=== PATIENT | female | born 1935 | race Caucasian/White ===

== ENCOUNTER → 2016-11-13 | Outpatient (CLI) | payer MEDICARE ==
[2016-03-15 15:00] VITALS: BP 171/59
[~2016-11-13] MED LIST: ALEN70TA5 PO; AMIT25TA PO; AMLO5TAB2 PO; ASPI-39 PO; CARV12.52 PO; CITA20TA5 PO; FURO40TA4 PO; GABA-586 PO; GABA-587 PO; GLIM1TAB2 PO; GLIP10TA13 PO; INSU100V13 SQ; INSU100V8 SQ; LEVO500T38 PO; LISI-334 PO; LORA0.5T PO; METF500T4 PO; MULT-196 PO; OMEG500C PO; POTA10TA10 PO; PRAV40TA2 PO; RANI300C PO; TRIA15CR3 TP; VENL150C6 PO; macrobid 100mg PO
--- NOTE | 2016-11-13 14:14 | EKG ---
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
[2016-11-13 14:45] LABS: CREATININE 1.6 mg/dL (0.6-1.0); GFR 31.1
[2016-11-13 15:40] LABS: FREE T4 1.17 ng/dL (0.76-1.46)
[2016-11-14 16:19] LABS: VITAMIN D25(OH)TOTAL 39.4 ng/mL (30.0-100.0)
== END | disposition home or self-care (01) ==
LOC: LAB 13:41
PROVIDERS: ATTEND Psychiatry & Neurology Neurology
DX: I51.9 Heart disease, unspecified (principal); E11.42 Type 2 diabetes mellitus with diabetic polyneuropathy
CPT/HCPCS: 36415; 82306; 82565; 82607; 82947; 84439; 84443; 84520; 85651; 93005

== ENCOUNTER → 2017-03-14 | Outpatient (CLI) | payer MEDICARE ==
[2016-03-15 15:00] VITALS: BP 171/59
[~2017-03-14] MED LIST changes: -LEVO500T38 PO; +LEVO500T59 PO; -POTA10TA10 PO; +POTA10TA12 PO
--- NOTE | 2017-03-14 16:41 | RAD ---
APPROVED REPORT Patient Location: OUT-PATIENT Laterality:Bilateral Risk Factors CAD, Doppler Spectral Velocity Analysis Right Left mCCA 101/101 cm/smCCA 101/101 cm/s ECA 147/ cm/sECA 165/ cm/s pICA 111/26 cm/spICA 94/12 cm/s Vasile 108/22 cm/smICA 77/17 cm/s dICA 105/20 cm/sdICA 70/15 cm/s ICA/CCA 1.10ICA/CCA 0.90 Findings Link scale images of the bilateral common carotid, external carotid and internal carotid arteries rev eal mild atherosclerotic plaque in the left and mild to moderate atherosclerotic plaque at the level of the carotid bulb on the right. Based on spectral Doppler tracings and color Doppler there is no evidence of high-grade stenosis. [place] aterally there is less than 0-50% stenosis in the internal cardio artery. The bilateral external mcintosh tid arteries have mildly elevated velocities. The bilateral vertebral velocities are antegrade. Critical Notification Critical Value: No <Conclusion> No high-grade stenosis is identified in the bilateral carotid arterial systems.
== END | disposition home or self-care (01) ==
LOC: US 15:04
PROVIDERS: ATTEND Internal Medicine Cardiovascular Disease
DX: I25.10 Atherosclerotic heart disease of native coronary artery without angina pectoris (principal); I65.23 Occlusion and stenosis of bilateral carotid arteries
CPT/HCPCS: 93880

== ENCOUNTER 2017-04-22 17:37 | Emergency (ER) | payer MEDICARE ==
[~2017-04-22] VITALS: Ht 157.5 cm; Wt 61.2 kg
[2017-04-22 18:10] VITALS: BP 142/65
--- NOTE | 2017-04-22 18:11 | PHYS DOC ---
Past Medical History Past Medical History: Anxiety, Arrhythmia, Depression, Diabetes-Type II, GERD, High Cholesterol, Hypertension, [place], Renal Disease, UTI, Other Additional Past Medical Histor: Renal retention; [place], neuropathy; Past Surgical History: Hysterectomy, Other Additional Past Surgical Histo: arm surgery Alcohol Use: None Drug Use: None Adult General Chief Complaint Chief Complaint: MULTIPLE COMPLAINTS HPI HPI Patient is a 81 year old female who presents with generalized weakness, dysuria, nausea. She states she was seen yesterday was diagnosed with urinary tract infection and put on Macrobid. She states last night she took it with some crackers and then had nausea and vomited 3 times. She states she also shook all over for several hours. She states that is normal for her after she vomits to shake. She states today she's been feeling better but is somewhat weaker. She called her primary care physician who recommended her to come to the ER to have labs and a look at her kidney function. She states she had an elevated temperature at home. Review of Systems Review of Systems Constitutional: Denies fever or chills [] Eyes: Denies change in visual acuity, redness, or eye pain [] HENT: Denies nasal congestion or sore throat [] Respiratory: Denies cough or shortness of breath [] Cardiovascular: No additional information not addressed in HPI [] GI: Denies abdominal pain, nausea, vomiting, bloody stools or diarrhea [] : Positive for dysuria, Denies hematuria [] Musculoskeletal: Denies back pain or joint pain [] Integument: Denies rash or skin lesions [] Neurologic: Denies headache, focal weakness or sensory changes [] Endocrine: Denies polyuria or polydipsia [] Current Medications Current Medications Current Medications Medications (Trade) Dose Ordered Sig/Smita Start Time Stop Time Status Last Admin Dose Admin Ceftriaxone Sodium 50 ml @ 100 mls/hr 1X ONCE 04/22/17 19:30 04/22/17 19:59 DC 04/22/17 19:36 100 MLS/HR Ondansetron HCl (Zofran) 4 mg 1X ONCE 04/22/17 18:30 04/22/17 18:39 DC 04/22/17 18:43 4 MG Sodium Chloride 1,000 ml @ 1,000 mls/hr Q1H 04/22/17 18:28 04/22/17 19:27 DC 04/22/17 18:43 1,000 MLS/HR Allergies Allergies Allergies Coded Allergies Type Severity Reaction Last Updated Verified codeine Adverse Reaction Intermediate nausea 02/01/16 Yes Physical Exam Physical Exam Constitutional: Well developed, well nourished, no acute distress, non-toxic appearance. [] HENT: Normocephalic, atraumatic, bilateral external ears normal, oropharynx moist, no oral exudates, nose normal. [] Eyes: PERRLA, EOMI, conjunctiva normal, no discharge. [] Neck: Normal range of motion, no tenderness, supple, no stridor. [] Cardiovascular:Heart rate regular rhythm, no murmur [] Lungs & Thorax: Bilateral breath sounds clear to auscultation [] Abdomen: Bowel sounds normal, soft, no tenderness, no masses, no pulsatile masses. [] Skin: Warm, dry, no erythema, no rash. [] Back: No tenderness, no CVA tenderness. [] Extremities: No tenderness, no cyanosis, no clubbing, ROM intact, no edema. [] Neurologic: Alert and oriented X 3, normal motor function, normal sensory function, no focal deficits noted. [] Psychologic: Affect normal, judgement normal, mood normal. [] Current Patient Data Vital Signs Vital Signs Date Time Temp Pulse Resp B/P (MAP) Pulse Ox O2 Delivery O2 Flow Rate FiO2 04/22/17 18:10 99.8 85 16 142/65 (90) 98 Room Air 99.8 Lab Values Laboratory Tests Test 04/22/17 18:10 04/22/17 18:40 04/22/17 19:35 Urine Collection Type Unknown Urine Color Yellow Urine Clarity Cloudy Urine pH 5.5 Urine Specific [place] 1.010 Urine Protein Negative mg/dL (NEG-TRACE) Urine Glucose (UA) Negative mg/dL (NEG) Urine Ketones (Stick) Negative mg/dL (NEG) Urine Blood Small (NEG) Urine Nitrite Negative (NEG) Urine Bilirubin Negative (NEG) Urine Urobilinogen Dipstick 0.2 mg/dL (0.2 mg/dL) Urine Leukocyte Esterase Large (NEG) Urine RBC Occ /HPF (0-2) Urine WBC 20-40 /HPF (0-4) Urine Squamous Epithelial Cells Many /LPF Urine Bacteria Moderate /HPF (0-FEW) White Blood Count 15.9 x10^3/uL (4.0-11.0) H Red Blood Count 3.70 x10^6/uL (3.50-5.40) Hemoglobin 11.0 g/dL (12.0-15.5) L Hematocrit 32.6 % (36.0-47.0) L Mean Corpuscular Volume 88 fL (79-100) Mean Corpuscular Hemoglobin 30 pg (25-35) Mean Corpuscular Hemoglobin Concent 34 g/dL (31-37) Red Cell Distribution Width 13.6 % (11.5-14.5) Platelet Count 142 x10^3/uL (140-400) Neutrophils (%) (Auto) 87 % (31-73) H Lymphocytes (%) (Auto) 9 % (24-48) L Monocytes (%) (Auto) 4 % (0-9) Eosinophils (%) (Auto) 0 % (0-3) Basophils (%) (Auto) 0 % (0-3) Neutrophils # (Auto) 13.7 x10^3uL (1.8-7.7) H Lymphocytes # (Auto) 1.4 x10^3/uL (1.0-4.8) Monocytes # (Auto) 0.7 x10^3/uL (0.0-1.1) Eosinophils # (Auto) 0.0 x10^3/uL (0.0-0.7) Basophils # (Auto) 0.0 x10^3/uL (0.0-0.2) Segmented Neutrophils % 77 % (35-66) H Lymphocytes % 17 % (24-48) L Monocytes % 6 % (0-10) Platelet Estimate Adequate (ADEQUATE) Sodium Level 139 mmol/L (136-145) Potassium Level 3.7 mmol/L (3.5-5.1) Chloride Level 104 mmol/L (98-107) Carbon Dioxide Level 26 mmol/L (21-32) Anion Gap 9 (6-14) Blood Urea Nitrogen 31 mg/dL (7-20) H Creatinine 1.5 mg/dL (0.6-1.0) H Estimated GFR (Cockcroft-Gault) 33.5 Glucose Level 158 mg/dL (70-99) H Calcium Level 9.3 mg/dL (8.5-10.1) Total Bilirubin 0.6 mg/dL (0.2-1.0) Direct Bilirubin 0.1 mg/dL (0.0-0.2) Aspartate Amino Transferase (AST) 15 U/L (15-37) Alanine Aminotransferase (ALT) 16 U/L (14-59) Alkaline Phosphatase 46 U/L (46-116) Creatine Kinase 59 U/L (26-192) Creatine Kinase MB (Mass) 0.5 ng/mL (0.0-3.6) Creatine Kinase MB Relative Index % (0-4) Troponin I Quantitative < 0.017 ng/mL (0.000-0.055) Total Protein 6.1 g/dL (6.4-8.2) L Albumin 2.9 g/dL (3.4-5.0) L Lipase 114 U/L (73-393) Laboratory Tests 04/22/17 18:40 Laboratory Tests 04/22/17 19:35 EKG EKG EKG shows sinus rhythm with rate of [address] elevations or concerning T-wave inversions, normal axis, QTC 430 ms, as interpreted by me. Radiology/Procedures Radiology/Procedures [] Impressions: Urinary tract infection Dehydration Course & Med Decision Making Course & Med Decision Making Pertinent Labs and Imaging studies reviewed. (See chart for details) Labs do not show any acute abnormalities other than a UTI. Her creatinine is 1.5 and this is close to her baseline. She received 1 g of Rocephin and 1 L fluids and is requesting to be discharged home. Return precautions given. She is agreeable to the plan and being discharged in stable condition at this time. Dragon Disclaimer Dragon Disclaimer This electronic medical record was generated, in whole or in part, using a voice recognition dictation system. Departure Departure Impression: Primary Impression: UTI (urinary tract infection) Disposition: 01 HOME, SELF-CARE Condition: STABLE Referrals: JUAN BRITT Jr, MD (PCP) Patient Instructions: Urinary Tract Infection Additional Instructions: You were seen tonight for your bladder infection. You received IV fluids and antibiotics and you state you are feeling better. Continue taking your antibiotics that you were previously prescribed at the urgent care. Return ER for worsening weakness, uncontrolled nausea vomiting, abdominal pain, high fevers, continued shakes, or other concerns. You should follow-up with her primary care physician within the week. Problem Qualifiers Primary Impression: UTI (urinary tract infection) Urinary tract infection type: acute cystitis Hematuria presence: with hematuria Qualified Codes: N30.01 - Acute cystitis with hematuria ISAIAS RAPHAEL MD Apr 22, 2017 18:11
[2017-04-22] MEDS ORDERED: IV NORMAL SALINE 1000ML BAG 1,000 ML IV SCH (18:28)
[2017-04-22] MEDS ORDERED: ONDANSETRON PF 4 MG/2 ML VIAL. IV ONE (18:30)
[2017-04-22 18:39] LABS: BILIRUBIN,URINE NEGATIVE (NEG); GLUCOSE,URINE NEGATIVE (NEG); NITRITE,URINE NEGATIVE (NEG); PH,URINE 5.5; PROTEIN,URINE NEGATIVE (NEG-TRACE); UROBILINOGEN,URINE 0.2 mg/dL (0.2 mg/dL)
[2017-04-22 18:51] LABS: BASO % 0 % (0-3); EOS % 0 % (0-3); HEMATOCRIT 32.6 % (36.0-47.0); LYMPH # 1.4 x10^3/uL (1.0-4.8); LYMPH % 9 % (24-48); MEAN CORPUSCULAR HEMOGLOBIN 30 pg (25-35); MEAN CORPUSCULAR HGB CONC 34 g/dL (31-37); MEAN CORPUSCULAR VOLUME 88 fL (79-100); MONO % 4 % (0-9); NEUT % 87 % (31-73); PLATELET COUNT 142 x10^3/uL (140-400); RED CELL DISTRIBUTION WIDTH 13.6 % (11.5-14.5); WHITE BLOOD COUNT 15.9 x10^3/uL (4.0-11.0)
[2017-04-22 18:54] LABS: BACTERIA,URINE MODERATE /HPF (0-FEW); RBC,URINE OCC /HPF (0-2); SQUAMOUS EPITHELIAL CELL,UR MANY /LPF; WBC,URINE 20-40 /HPF (0-4)
[2017-04-22 19:19] LABS: PLT ESTIMATE ADEQUATE (ADEQUATE)
[2017-04-22 20:18] LABS: CKMB MASS 0.5 ng/mL (0.0-3.6); CREATINE KINASE 59 U/L (26-192)
[2017-04-22 20:31] LABS: CALCIUM 9.3 mg/dL (8.5-10.1); CREATININE 1.5 mg/dL (0.6-1.0); GFR 33.5; POTASSIUM 3.7 mmol/L (3.5-5.1)
[2017-04-22 20:39] LABS: ALBUMIN 2.9 g/dL (3.4-5.0); DIRECT BILIRUBIN 0.1 mg/dL (0.0-0.2); TOTAL BILIRUBIN 0.6 mg/dL (0.2-1.0); TOTAL PROTEIN 6.1 g/dL (6.4-8.2)
--- NOTE | 2017-04-23 06:12 | EKG ---
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
== END 2017-04-22 20:59 | disposition home or self-care (01) ==
LOC: ER 17:37
DX: N30.01 Acute cystitis with hematuria (principal); E11.22 Type 2 diabetes mellitus with diabetic chronic kidney disease; N18.9 Chronic kidney disease, unspecified; I12.9 Hypertensive chronic kidney disease with stage 1 through stage 4 chronic kidney disease, or unspecified chronic kidney disease; I25.2 Old myocardial infarction; E11.40 Type 2 diabetes mellitus with diabetic neuropathy, unspecified; E78.00 Pure hypercholesterolemia, unspecified; K21.9 Gastro-esophageal reflux disease without esophagitis; Z88.5 Allergy status to narcotic agent
CPT/HCPCS: 36415; 80048; 80076; 81001; 82553; 83690; 84484; 85007; 85025; 87040; 87086; 93005; 96361; 96365; 96375; 99285; J0690; J2405; J7030

== ENCOUNTER → 2017-06-20 | Outpatient (CLI) | payer MEDICARE ==
--- NOTE | 2017-06-20 16:14 | KCIC ---
DATE: 06/20/2017 EXAM: MAMMO JULIETTE SCREENING BILATERAL HISTORY: Routine screening COMPARISON: 05/15/2016 This study was interpreted with the benefit of Computerized Aided Detection (CAD). FINDINGS: Breast Density: SCATTERED The breast parenchyma shows scattered fibroglandular densities. Breast parenchyma level B. Small asymmetry identified in the right retroareolar region which appears new compared to prior exam. Nodular appearing bilateral breast parenchyma. IMPRESSION: New small asymmetry identified in the right retroareolar region. Recommend spot compression views of the right breast and ultrasound. BI-RADS CATEGORY: 0 INCOMPLETE: NEEDS ADDITIONAL IMAGING EVALUATION AND/OR PRIOR MAMMOGRAMS FOR COMPARISON. RECOMMENDED FOLLOW-UP: ADD ADDITIONAL IMAGING PQRS compliance statement: Patient information was entered into a reminder system with a target due date immediate recall for the next mammogram. Mammography is a sensitive method for finding small breast cancers, but it does not detect them all and is not a substitute for careful clinical examination. A negative mammogram does not negate a clinically suspicious finding and should not result in delay in biopsying a clinically suspicious abnormality. "Our facility is accredited by the [employer] Mammography Program."
== END | disposition home or self-care (01) ==
LOC: KCIC MAMMO 14:24
PROVIDERS: ATTEND Internal Medicine
DX: Z12.31 Encounter for screening mammogram for malignant neoplasm of breast (principal)
CPT/HCPCS: 77063; G0202; 77067

== ENCOUNTER → 2017-07-01 | Outpatient (CLI) | payer MEDICARE ==
--- NOTE | 2017-07-01 15:05 | KCIC ---
DATE: 07/01/2017 EXAM: DIGITAL DIAGNOSTIC RT HISTORY: Right breast density. COMPARISON: 06/20/2017. This study was interpreted with the benefit of Computerized Aided Detection (CAD). FINDINGS: Spot compression CC and MLO views of the right breast were obtained in the retroareolar location. There is a persistent density in the retroareolar location. Further evaluation of this area with ultrasound is recommended. No suspicious calcifications are seen. Impression: Persistent density right retroareolar location. Further evaluation with ultrasound is recommended. Right breast ultrasound: Sonographic interrogation of the retroareolar right breast was performed. Minimal ductal ectasia is seen. No discrete mass lesion is detected. Breast Density: SCATTERED The breast parenchyma shows scattered fibroglandular densities. Breast parenchyma level B. IMPRESSION: No significant abnormality is identified with additional view mammography or ultrasound. Retroareolar density most likely represents fibroglandular tissue. The patient may return to routine annual screening mammography. BI-RADS CATEGORY: 2 BENIGN FINDING(S) RECOMMENDED FOLLOW-UP: 12M 12 MONTH FOLLOW-UP PQRS compliance statement: Patient information was entered into a reminder system with a target due date 06/20/2018 for the next mammogram. Mammography is a sensitive method for finding small breast cancers, but it does not detect them all and is not a substitute for careful clinical examination. A negative mammogram does not negate a clinically suspicious finding and should not result in delay in biopsying a clinically suspicious abnormality. "Our facility is accredited by the [employer] Mammography Program."
== END | disposition home or self-care (01) ==
LOC: KCIC MAMMO 13:07
PROVIDERS: ATTEND Internal Medicine
DX: N63.10 Unspecified lump in the right breast, unspecified quadrant (principal)
CPT/HCPCS: 76641; G0206; 77065

== ENCOUNTER 2018-03-05 12:02 | Inpatient (IN) | payer MEDICARE ==
[~2018-03-05] VITALS: Ht 157.5 cm; Wt 63.5 kg
[~2018-03-05 12:02] MED LIST changes: -CITA20TA5 PO; +CITA20TA6 PO; +DULO20CA PO; -METF500T4 PO; +METF500T5 PO
[2018-03-05] MEDS ORDERED: IV NORMAL SALINE 1000ML BAG 1,000 ML IV SCH (12:43)
--- NOTE | 2018-03-05 13:17 | RAD ---
Portable chest, 03/05/2018: HISTORY: Fever, recent UTI Comparison is made to a study from 11/24/2017. The heart is at the upper limits of normal in size. There is calcific plaquing of the aorta. There appear to be mild parenchymal scars. No acute infiltrate is seen. There is no evidence of pleural fluid. 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 IMPRESSION: No acute cardiopulmonary abnormality is detected with no significant change since 11/24/2017. Electronically signed by: Lyle Rivera MD (03/05/2018 1:14 PM) [facility]
[2018-03-05 13:29] LABS: BASO # 0.2 x10^3/uL (0.0-0.2); BASO % 1 % (0-3); EOS % 0 % (0-3); HEMOGLOBIN 12.2 g/dL (12.0-15.5); LYMPH # 1.1 x10^3/uL (1.0-4.8); LYMPH % 5 % (24-48); MEAN CORPUSCULAR HEMOGLOBIN 30 pg (25-35); MEAN CORPUSCULAR HGB CONC 34 g/dL (31-37); MEAN CORPUSCULAR VOLUME 87 fL (79-100); MONO # 0.8 x10^3/uL (0.0-1.1); MONO % 4 % (0-9); NEUT # 17.8 x10^3uL (1.8-7.7); NEUT % 89 % (31-73); PLATELET COUNT 158 x10^3/uL (140-400); RED BLOOD COUNT 4.12 x10^6/uL (3.50-5.40); RED CELL DISTRIBUTION WIDTH 13.5 % (11.5-14.5); WHITE BLOOD COUNT 19.9 x10^3/uL (4.0-11.0)
[2018-03-05 13:43] LABS: CALCIUM 9.4 mg/dL (8.5-10.1); CREATININE 1.4 mg/dL (0.6-1.0); GFR 36.2; POTASSIUM 4.3 mmol/L (3.5-5.1)
[2018-03-05 13:49] LABS: ALBUMIN 3.5 g/dL (3.4-5.0); TOTAL PROTEIN 7.1 g/dL (6.4-8.2)
[2018-03-05] MEDS ORDERED: ACETAMINOPHEN 500 MG TABLET PO ONE (14:00)
--- NOTE | 2018-03-05 14:12 | PHYS DOC ---
Past Medical History Past Medical History: Anxiety, Arrhythmia, CAD, Depression, Diabetes-Type II, GERD, High Cholesterol, Hypertension, [place], Renal Disease, UTI, Other Additional Past Medical Histor: Renal retention; [place], neuropathy, kidney disease stage IV Past Surgical History: Hysterectomy, Other Additional Past Surgical Histo: arm surgery, CARDIAC STENTS Alcohol Use: None Drug Use: None Adult General Chief Complaint Chief Complaint: FEVER HPI HPI Patient is a 82 year old female with history of hypertension, dyslipidemia, anxiety, diabetes who presents with complaining of fever. Patient had urgent care visit 3 days ago with diagnosis of UTI and treated with penicillin but was not able to tolerate the medication and vomited all night and the medication changed to something different and had 2 doses of antibiotic. Patient had fever since yesterday and seen at the urgent care today and because of fever of 102 sent to ER for evaluation. Patient complaining from priors weakness and anorexia without focal neuro deficit, headache, neck pain, vomiting and diarrhea. Patient complaining of lower abdominal discomfort and nausea. Patient states she has had history of frequent UTI. Review of Systems Review of Systems Constitutional: Denies fever or chills [] Eyes: Denies change in visual acuity, redness, or eye pain [] HENT: Denies nasal congestion or sore throat [] Respiratory: Denies cough or shortness of breath [] Cardiovascular: No additional information not addressed in HPI [] GI: Reports abdominal pain, nausea, vomiting, denies bloody stools or diarrhea [ ] : Denies dysuria or hematuria [] Musculoskeletal: Denies back pain or joint pain [] Integument: Denies rash or skin lesions [] Neurologic: Denies headache, focal weakness or sensory changes [] Endocrine: Denies polyuria or polydipsia [] All other systems were reviewed and found to be within normal limits, except as documented in this note. Current Medications Current Medications Current Medications Medications (Trade) Dose Ordered Sig/Smita Start Time Stop Time Status Last Admin Dose Admin Acetaminophen (Tylenol) 1,000 mg 1X ONCE 03/05/18 14:00 03/05/18 14:01 DC 03/05/18 14:27 1,000 MG Ceftriaxone Sodium 50 ml @ 100 mls/hr 1X ONCE 03/05/18 14:00 03/05/18 14:29 DC 03/05/18 14:27 100 MLS/HR Sodium Chloride 1,000 ml @ 1,000 mls/hr Q1H 03/05/18 12:43 03/05/18 13:42 DC 03/05/18 13:26 1,000 MLS/HR Allergies Allergies Allergies Coded Allergies Type Severity Reaction Last Updated Verified Penicillins Allergy Intermediate GI 03/05/18 Yes codeine Adverse Reaction Intermediate nausea 02/01/16 Yes Physical Exam Physical Exam Constitutional: Well developed, well nourished, mild distress, non-toxic appearance, febrile. [] HENT: Normocephalic, atraumatic, , oropharynx dry, no oral exudates, nose normal. [] Eyes: PERRLA, EOMI, conjunctiva normal, no discharge. [] Neck: Normal range of motion, no tenderness, supple, no stridor. [] Cardiovascular:Heart rate regular rhythm, no murmur [] Lungs & Thorax: Bilateral breath sounds clear to auscultation [] Abdomen: Bowel sounds normal, soft, no tenderness, no masses, no pulsatile masses. [] Skin: Warm, dry, no erythema, no rash. [] Back: No tenderness, no CVA tenderness. [] Extremities: No tenderness, no cyanosis, no clubbing, ROM intact, no edema. [] Neurologic: Alert and oriented X 3, normal motor function, normal sensory function, no focal deficits noted. [] Psychologic: Affect normal, judgement normal, mood normal. [] Current Patient Data Vital Signs Vital Signs Date Time Temp Pulse Resp B/P (MAP) Pulse Ox O2 Delivery O2 Flow Rate FiO2 03/05/18 13:51 90 20 176/70 (105) 95 Room Air 03/05/18 12:20 101.6 101.6 Lab Values Laboratory Tests Test 03/05/18 13:20 White Blood Count 19.9 x10^3/uL (4.0-11.0) H Red Blood Count 4.12 x10^6/uL (3.50-5.40) Hemoglobin 12.2 g/dL (12.0-15.5) Hematocrit 36.0 % (36.0-47.0) Mean Corpuscular Volume 87 fL (79-100) Mean Corpuscular Hemoglobin 30 pg (25-35) Mean Corpuscular Hemoglobin Concent 34 g/dL (31-37) Red Cell Distribution Width 13.5 % (11.5-14.5) Platelet Count 158 x10^3/uL (140-400) Neutrophils (%) (Auto) 89 % (31-73) H Lymphocytes (%) (Auto) 5 % (24-48) L Monocytes (%) (Auto) 4 % (0-9) Eosinophils (%) (Auto) 0 % (0-3) Basophils (%) (Auto) 1 % (0-3) Neutrophils # (Auto) 17.8 x10^3uL (1.8-7.7) H Lymphocytes # (Auto) 1.1 x10^3/uL (1.0-4.8) Monocytes # (Auto) 0.8 x10^3/uL (0.0-1.1) Eosinophils # (Auto) 0.0 x10^3/uL (0.0-0.7) Basophils # (Auto) 0.2 x10^3/uL (0.0-0.2) Segmented Neutrophils % 80 % (35-66) H Band Neutrophils % 11 % (0-9) H Lymphocytes % 6 % (24-48) L Monocytes % 3 % (0-10) Platelet Estimate Adequate (ADEQUATE) Sodium Level 136 mmol/L (136-145) Potassium Level 4.3 mmol/L (3.5-5.1) Chloride Level 100 mmol/L (98-107) Carbon Dioxide Level 27 mmol/L (21-32) Anion Gap 9 (6-14) Blood Urea Nitrogen 23 mg/dL (7-20) H Creatinine 1.4 mg/dL (0.6-1.0) H Estimated GFR (Cockcroft-Gault) 36.2 BUN/Creatinine Ratio 16 (6-20) Glucose Level 152 mg/dL (70-99) H Lactic Acid Level 1.7 mmol/L (0.4-2.0) Calcium Level 9.4 mg/dL (8.5-10.1) Total Bilirubin 1.0 mg/dL (0.2-1.0) Aspartate Amino Transferase (AST) 15 U/L (15-37) Alanine Aminotransferase (ALT) 21 U/L (14-59) Alkaline Phosphatase 78 U/L (46-116) Total Protein 7.1 g/dL (6.4-8.2) Albumin 3.5 g/dL (3.4-5.0) Albumin/Globulin Ratio 1.0 (1.0-1.7) Laboratory Tests 03/05/18 13:20 Laboratory Tests 03/05/18 13:20 EKG EKG [] Radiology/Procedures Radiology/Procedures [][facility] [address] [place] [address] IMAGING REPORT Signed PATIENT: NAZ GOMEZ ACCOUNT: [id number] : 1935 LOCATION: ER AGE: 82 SEX: F EXAM STATUS: REG ER ORD. PHYSICIAN: NISHA IZAGUIRRE MD REASON: fever PROCEDURE: PORTABLE CHEST 1V Portable chest, 03/05/2018: HISTORY: Fever, recent UTI Comparison is made to a study from 11/24/2017. The heart is at the upper limits of normal in size. There is calcific plaquing of the aorta. There appear to be mild parenchymal scars. No acute infiltrate is seen. There is no evidence of pleural fluid. 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 IMPRESSION: No acute cardiopulmonary abnormality is detected with no significant change since 11/24/2017. Electronically signed by: Lyle Rivera MD (03/05/2018 1:14 PM) [facility] DICTATED and SIGNED BY: LYLE RIVERA MD DATE: 03/05/18 1313 Course & Med Decision Making Course & Med Decision Making Pertinent Labs and Imaging studies reviewed. (See chart for details) Evaluation of patient in ER showed 82-year-old female patient with complaining of fever and lower abdominal pain and nausea and vomiting and urinary symptom. Patient had no abdominal guarding and fever of 102 and leukocytosis of 19.9. UA did not show sign of infection. CT abdomen and pelvis is pending. Dr. Craig accepted admission at 1405. [] Dragon Disclaimer Dragon Disclaimer This electronic medical record was generated, in whole or in part, using a voice recognition dictation system. Departure Departure Impression: Primary Impression: Sepsis secondary to UTI Additional Impression: Acute renal insufficiency Disposition: ADMITTED INPATIENT (at 1405) Admitting Physician: Lulu Craig Condition: IMPROVED Referrals: JUAN BRITT Jr, MD (PCP) Problem Qualifiers NISHA IZAGUIRRE MD Mar 05, 2018 14:12
[2018-03-05 14:39] LABS: % BANDS 11 % (0-9); % LYMPHS 6 % (24-48); % MONOS 3 % (0-10); % SEGS 80 % (35-66); PLT ESTIMATE ADEQUATE (ADEQUATE)
[2018-03-05 14:40] LABS: BILIRUBIN,URINE NEGATIVE (NEG); CLARITY,URINE CLEAR; COLOR,URINE YELLOW; NITRITE,URINE NEGATIVE (NEG); PH,URINE 7.5; PROTEIN,URINE NEGATIVE (NEG-TRACE); UROBILINOGEN,URINE 0.2 mg/dL (0.2 mg/dL)
[2018-03-05 14:57] LABS: RBC,URINE RARE /HPF (0-2)
[2018-03-05 14:58] LABS: BACTERIA,URINE 0 /HPF (0-FEW); SQUAMOUS EPITHELIAL CELL,UR MOD /LPF; WBC,URINE OCC /HPF (0-4)
[2018-03-05 16:00] VITALS: BP 129/53
[2018-03-05] MEDS: IV NORMAL SALINE 1000ML BAG 1,000 ML IV SCH ×2 (16:29→22:39)
--- NOTE | 2018-03-05 16:31 | RAD ---
CT of the abdomen and pelvis without contrast. 03/05/2018 3:56 PM Indication: abd pain, leukocytosis
prior sent Comparison Study: CT of the abdomen and pelvis March 13, 2016 Technique: Multidetector CT imaging of the abdomen pelvis is obtained without administration of contrast. Findings: Visualized lung bases demonstrate no acute abnormality. Prior cholecystectomy is noted. Liver and spleen are unremarkable. Small accessory splenule noted. Adrenal glands are unremarkable. Pancreas is grossly unremarkable. Left kidney is markedly atrophic. Extrarenal pelvis noted on the left. Extrarenal pelvis also noted on the right, more prominent than left. The right ureter is mildly prominent throughout. No nephrolithiasis or definitive obstructive uropathy is seen. The bladder is grossly unremarkable. Morphology of the right renal collecting system is similar to prior study.. A small hiatal hernia is noted. Evaluation of the bowel is limited without enteric contrast. No evidence of bowel obstruction is identified. No acute inflammatory change involving the bowel is identified. Diffuse atherosclerotic vascular calcification is seen. No free fluid or free air is seen in the abdomen or pelvis. No acute osseous changes are identified. IMPRESSION: 1.No evidence of acute intra-abdominal abnormality is identified. 2. Left renal atrophy, similar to prior study. Bilateral extrarenal pelves noted. 3. Small hiatal hernia CT DOSING PQRS STATEMENT: One or more of the following individualized dose reduction techniques were utilized for this examination: 1. Automated exposure control 2. Adjustment of the mA and/or kV according to patient size 3. Use of iterative reconstruction technique Electronically signed by: Walter López MD (03/05/2018 4:28 PM) [id number]
--- NOTE | 2018-03-05 18:04 | PDOC1 ---
History and Physical Date of Admission Date of Admission DATE: 03/05/18 TIME: 17:58 Identification/Chief Complaint Chief Complaint fever Source Source: Caregiver, Chart review, Patient History of Present Illness History of Present Illness MS. Fiore, is a 82 year old female who presents with complaining of fever. 3 days ago with diagnosis of UTI at urgent care, recent ABd, then vomted at home, she believes due to the abx, NO abd pain, PO intake fine, she feels improved after being seen in the ER today. Presented due to T 102 nausea persists, no further fever, . Patient complaining from priors weakness and anorexia without focal neuro deficit, headache, neck pain, vomiting and diarrhea. Past Medical History Past Medical History with history of hypertension, dyslipidemia, anxiety, diabetes Cardiovascular: CAD, HTN, Hyperlipidemia, Other Pulmonary: Other CENTRAL NERVOUS SYSTEM: Periperal neuropathy GI: GERD Heme/Onc: No pertinent hx Hepatobiliary: No pertinent hx Psych: Anxiety, Depression Rheumatologic: No pertinent hx Infectious disease: No pertinent hx Renal/: Chronic renal insuff, UTI Endocrine: Diabetes Past Surgical History Past Surgical History: Cholecystectomy, Cataract Removal, Hysterectomy, Other Family History Family History: Coronary Artery Disease Social History Smoke: No ALCOHOL: none Drugs: None Current Problem List Problem List Problems Medical Problems: (1) Acute renal insufficiency Status: Acute (2) Sepsis secondary to UTI Status: Acute Current Medications Current Medications Current Medications Sodium Chloride 1,000 ml @ 1,000 mls/hr Q1H IV Last administered on 03/05/18at 13:26; Start 03/05/18 at 12:43; Stop 03/05/18 at 13:42; Status DC Acetaminophen (Tylenol) 1,000 mg 1X ONCE PO Last administered on 03/05/18at 14: 27; Start 03/05/18 at 14:00; Stop 03/05/18 at 14:01; Status DC Ceftriaxone Sodium 50 ml @ 100 mls/hr 1X ONCE IV Last administered on at 14:27; Start 03/05/18 at 14:00; Stop 03/05/18 at 14:29; Status DC Ceftriaxone Sodium (Rocephin) 1 gm Q24H IVP ; Start 03/06/18 at 14:00 Sodium Chloride 1,000 ml @ 150 mls/hr Q6H40M IV Last administered on at 16:29; Start 03/05/18 at 15:00; Stop 03/06/18 at 14:59 Active Scripts Active Reported Cymbalta (Duloxetine Hcl) 20 Mg Capsule.dr 20 Mg PO DAILY Lisinopril 20 Mg Tablet 1 Tab PO DAILY Furosemide 40 Mg Tablet 1 Tab PO QODAY Amlodipine Besylate 5 Mg Tablet 2.5 Mg PO DAILY Glimepiride 1 Mg Tablet 0.5 Mg PO DAILY Lantus (Insulin Glargine,Hum.rec.anlog) 100 Unit/1 Ml Vial 18 Unit SQ QHS Citalopram Hbr (Citalopram Hydrobromide) 20 Mg Tablet 40 Mg PO DAILY Lawrence Chewable (Aspirin) 81 Mg Tab.chew 81 Mg PO Fish Oil ([place]-3 Fatty Acids) 500 Mg Capsule.dr 3,600 Mg PO Women's One Daily (Multivit With Calcium,Iron,Min) 1 Each Tablet 1 Each PO Pravastatin Sodium 40 Mg Tablet 40 Mg PO Carvedilol 12.5 Mg Tablet 6.25 Mg PO BID Ranitidine Hcl 300 Mg Capsule 300 Mg PO BID Lorazepam 0.5 Mg Tablet 0.5 Mg PO BID MDD 1mg Allergies Allergies: Coded Allergies: Penicillins (Verified Allergy, Intermediate, GI, 03/05/18) codeine (Verified Adverse Reaction, Intermediate, nausea, 02/01/16) ROS General: YES: Chills, Fatigue; No: Night Sweats, Malaise, Appetite, Other PSYCHOLOGICAL ROS: No: Anxiety, Behavioral Disorder, Concentration difficultie , Decreased libido, Depression, Disorientation, Hallucinations, Hostility, Irritablity, Memory difficulties, Mood Swings, Obsessive thoughts, Physical abuse, Sexual abuse, Sleep disturbances, Suicidal ideation, Other Eyes: No Blurry vision, No Decreased vision, No Double vision, No Dry eyes, No Excessive tearing, No Eye Pain, No Itchy Eyes, No Loss of vision, No Photophobia , No Scotomata, No Uses contacts, No Uses glasses, No Other HEENT: No: Heacaches, Visual Changes, Hearing change, Nasal congestion, Nasal discharge, Oral lesions, Sinus pain, Sore Throat, Epistaxis, Sneezing, Snoring, Tinnitus, Vertigo, Vocal changes, Other Hematological and Lymphatic: No: Bleeding Problems, Blood Clots, Blood Transfusions, Brusing, Night Sweats, Pallor, Swollen Lymph Nodes, Other ENDOCRINE: No: Breast Changes, Galactorrhea, Hair Pattern Changes, Hot Flashes , Malaise/lethargy, Mood Swings, Palpitations, Polydipsia/polyuria, Skin Changes , Temperature Intolerance, Unexpected Weight Changes, Other Respiratory: No: Cough, Hemoptysis, Orthopnea, Pleuritic Pain, Shortness of breath, SOB with excertion, Sputum Changes, Stridor, Tachypnea, Wheezing, Other Cardiovascular: No Chest Pain, No Palpitations, No Orthopnea, No Paroxysmal Noc. Dyspnea, No Edema, No Lt Headedness, No Other Gastrointestinal: Yes Nausea, Yes Vomiting; No Abdominal Pain, No Diarrhea, No Constipation, No Melena, No Hematochezia, No Other Genitourinary: No Dysuria, No Frequency, No Incontinence, No Hematuria, No Retention, No Discharge, No Urgency, No Pain, No Flank Pain, No Other, No , No , No , No , No , No , No Musculoskeletal: Yes Pain In: (feet, chronic neuropathy); No Gait Disturbance, No Joint Pain, No Joint Stiffness, No Joint Swelling, No Muscle Pain, No Muscular Weakness, No Swelling In:, No Other Neurological: No Behavorial Changes, No Bowel/Bladder ControlChng, No Confusion , No Dizziness, No Gait Disturbance, No Headaches, No Impaired Coord/balance, No Memory Loss, No Numbness/Tingling, No Seizures, No Speech Problems, No Tremors, No Visual Changes, No Weakness, No Other Skin: No Dry Skin, No Eczema, No Hair Changes, No Lumps, No Mole Changes, No Mottling, No Nail Changes, No Pruritus, No Rash, No Skin Lesion Changes, No Other, No Acne Physical Exam General: Alert, Cooperative, No acute distress HEENT: Atraumatic, PERRLA, EOMI Lungs: Clear to auscultation, Normal air movement Heart: S1S2, RRR, no gallops, no murmurs Abdomen: Normal bowel sounds Male Genitals Exam: normal genitalia Extremities: No clubbing, Normal pulses, Other Skin: Other (redness to bilat LE, she reports as stable, not painful ) Neuro: Normal speech, Sensation intact Psych/Mental Status: Mental status NL, Mood NL Vitals Vitals Vital Signs Date Time Temp Pulse Resp B/P (MAP) Pulse Ox O2 Delivery O2 Flow Rate FiO2 03/05/18 17:39 Room Air 03/05/18 15:21 94 18 162/66 (98) 94 03/05/18 12:20 101.6 101.6 Labs Labs Laboratory Tests Test 03/05/18 13:20 03/05/18 14:12 03/05/18 16:23 White Blood Count 19.9 x10^3/uL (4.0-11.0) Red Blood Count 4.12 x10^6/uL (3.50-5.40) Hemoglobin 12.2 g/dL (12.0-15.5) Hematocrit 36.0 % (36.0-47.0) Mean Corpuscular Volume 87 fL (79-100) Mean Corpuscular Hemoglobin 30 pg (25-35) Mean Corpuscular Hemoglobin Concent 34 g/dL (31-37) Red Cell Distribution Width 13.5 % (11.5-14.5) Platelet Count 158 x10^3/uL (140-400) Neutrophils (%) (Auto) 89 % (31-73) Lymphocytes (%) (Auto) 5 % (24-48) Monocytes (%) (Auto) 4 % (0-9) Eosinophils (%) (Auto) 0 % (0-3) Basophils (%) (Auto) 1 % (0-3) Neutrophils # (Auto) 17.8 x10^3uL (1.8-7.7) Lymphocytes # (Auto) 1.1 x10^3/uL (1.0-4.8) Monocytes # (Auto) 0.8 x10^3/uL (0.0-1.1) Eosinophils # (Auto) 0.0 x10^3/uL (0.0-0.7) Basophils # (Auto) 0.2 x10^3/uL (0.0-0.2) Segmented Neutrophils % 80 % (35-66) Band Neutrophils % 11 % (0-9) Lymphocytes % 6 % (24-48) Monocytes % 3 % (0-10) Platelet Estimate Adequate (ADEQUATE) Sodium Level 136 mmol/L (136-145) Potassium Level 4.3 mmol/L (3.5-5.1) Chloride Level 100 mmol/L (98-107) Carbon Dioxide Level 27 mmol/L (21-32) Anion Gap 9 (6-14) Blood Urea Nitrogen 23 mg/dL (7-20) Creatinine 1.4 mg/dL (0.6-1.0) Estimated GFR (Cockcroft-Gault) 36.2 BUN/Creatinine Ratio 16 (6-20) Glucose Level 152 mg/dL (70-99) Lactic Acid Level 1.7 mmol/L (0.4-2.0) Calcium Level 9.4 mg/dL (8.5-10.1) Total Bilirubin 1.0 mg/dL (0.2-1.0) Aspartate Amino Transf (AST/SGOT) 15 U/L (15-37) Alanine Aminotransferase (ALT/SGPT) 21 U/L (14-59) Alkaline Phosphatase 78 U/L (46-116) Total Protein 7.1 g/dL (6.4-8.2) Albumin 3.5 g/dL (3.4-5.0) Albumin/Globulin Ratio 1.0 (1.0-1.7) Urine Collection Type U cath Urine Color Yellow Urine Clarity Clear Urine pH 7.5 Urine Specific [place] 1.010 Urine Protein Negative mg/dL (NEG-TRACE) Urine Glucose (UA) Negative mg/dL (NEG) Urine Ketones (Stick) Negative mg/dL (NEG) Urine Blood Negative (NEG) Urine Nitrite Negative (NEG) Urine Bilirubin Negative (NEG) Urine Urobilinogen Dipstick 0.2 mg/dL (0.2 mg/dL) Urine Leukocyte Esterase Negative (NEG) Urine RBC Rare /HPF (0-2) Urine WBC Occ /HPF (0-4) Urine Squamous Epithelial Cells Mod /LPF Urine Bacteria 0 /HPF (0-FEW) Glucose (Fingerstick) 137 mg/dL (70-99) Laboratory Tests Test 03/05/18 13:20 03/05/18 14:12 03/05/18 16:23 White Blood Count 19.9 x10^3/uL (4.0-11.0) Red Blood Count 4.12 x10^6/uL (3.50-5.40) Hemoglobin 12.2 g/dL (12.0-15.5) Hematocrit 36.0 % (36.0-47.0) Mean Corpuscular Volume 87 fL (79-100) Mean Corpuscular Hemoglobin 30 pg (25-35) Mean Corpuscular Hemoglobin Concent 34 g/dL (31-37) Red Cell Distribution Width 13.5 % (11.5-14.5) Platelet Count 158 x10^3/uL (140-400) Neutrophils (%) (Auto) 89 % (31-73) Lymphocytes (%) (Auto) 5 % (24-48) Monocytes (%) (Auto) 4 % (0-9) Eosinophils (%) (Auto) 0 % (0-3) Basophils (%) (Auto) 1 % (0-3) Neutrophils # (Auto) 17.8 x10^3uL (1.8-7.7) Lymphocytes # (Auto) 1.1 x10^3/uL (1.0-4.8) Monocytes # (Auto) 0.8 x10^3/uL (0.0-1.1) Eosinophils # (Auto) 0.0 x10^3/uL (0.0-0.7) Basophils # (Auto) 0.2 x10^3/uL (0.0-0.2) Segmented Neutrophils % 80 % (35-66) Band Neutrophils % 11 % (0-9) Lymphocytes % 6 % (24-48) Monocytes % 3 % (0-10) Platelet Estimate Adequate (ADEQUATE) Sodium Level 136 mmol/L (136-145) Potassium Level 4.3 mmol/L (3.5-5.1) Chloride Level 100 mmol/L (98-107) Carbon Dioxide Level 27 mmol/L (21-32) Anion Gap 9 (6-14) Blood Urea Nitrogen 23 mg/dL (7-20) Creatinine 1.4 mg/dL (0.6-1.0) Estimated GFR (Cockcroft-Gault) 36.2 BUN/Creatinine Ratio 16 (6-20) Glucose Level 152 mg/dL (70-99) Lactic Acid Level 1.7 mmol/L (0.4-2.0) Calcium Level 9.4 mg/dL (8.5-10.1) Total Bilirubin 1.0 mg/dL (0.2-1.0) Aspartate Amino Transf (AST/SGOT) 15 U/L (15-37) Alanine Aminotransferase (ALT/SGPT) 21 U/L (14-59) Alkaline Phosphatase 78 U/L (46-116) Total Protein 7.1 g/dL (6.4-8.2) Albumin 3.5 g/dL (3.4-5.0) Albumin/Globulin Ratio 1.0 (1.0-1.7) Urine Collection Type U cath Urine Color Yellow Urine Clarity Clear Urine pH 7.5 Urine Specific [place] 1.010 Urine Protein Negative mg/dL (NEG-TRACE) Urine Glucose (UA) Negative mg/dL (NEG) Urine Ketones (Stick) Negative mg/dL (NEG) Urine Blood Negative (NEG) Urine Nitrite Negative (NEG) Urine Bilirubin Negative (NEG) Urine Urobilinogen Dipstick 0.2 mg/dL (0.2 mg/dL) Urine Leukocyte Esterase Negative (NEG) Urine RBC Rare /HPF (0-2) Urine WBC Occ /HPF (0-4) Urine Squamous Epithelial Cells Mod /LPF Urine Bacteria 0 /HPF (0-FEW) Glucose (Fingerstick) 137 mg/dL (70-99) VTE Prophylaxis Ordered VTE Prophylaxis Devices: Yes VTE Pharmacological Prophylaxi: Yes Assessment/Plan Assessment/Plan leukocytosis, fever sepsis, likely viral , no source found she reports vomiting in ER when given abx, no abd pain chronic LE redness, unchanged 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
[2018-03-05] MEDS ORDERED: DEXTROSE 50% 25 GM / 50ML DISP.SYRIN. IV PRN (18:15)
[2018-03-05] MEDS: amLODIPine BESYLATE 2.5 MG TABLET PO SCH (18:44)
[2018-03-05] MEDS: LISINOPRIL 20 MG TABLET PO SCH (18:45)
[2018-03-05] MEDS: CARVEDILOL 6.25 MG TABLET. PO SCH (18:45)
[2018-03-05 19:00] VITALS: BP 150/58
[2018-03-05] MEDS: SIMVASTATIN 5 MG TABLET. PO SCH (20:59)
[2018-03-05] MEDS: FAMOTIDINE 20 MG TABLET. PO SCH (20:59)
[2018-03-05] MEDS: LORazepam 0.5 MG TABLET PO SCH (20:59)
[2018-03-05] MEDS: INSULIN GLARGINE 300 UNITS/3 ML INSULN.PEN. SQ SCH (21:03)
[2018-03-05 23:00] VITALS: BP 140/53
[2018-03-06 03:00] VITALS: BP 135/52
[2018-03-06] MEDS: IV NORMAL SALINE 1000ML BAG 1,000 ML IV SCH ×2 (04:54→11:00)
[2018-03-06 05:08] LABS: BASO % 0 % (0-3); EOS # 0.1 x10^3/uL (0.0-0.7); EOS % 1 % (0-3); HEMATOCRIT 32.9 % (36.0-47.0); HEMOGLOBIN 11.2 g/dL (12.0-15.5); LYMPH # 1.1 x10^3/uL (1.0-4.8); LYMPH % 9 % (24-48); MEAN CORPUSCULAR HEMOGLOBIN 30 pg (25-35); MEAN CORPUSCULAR HGB CONC 34 g/dL (31-37); MEAN CORPUSCULAR VOLUME 88 fL (79-100); MONO # 0.6 x10^3/uL (0.0-1.1); MONO % 5 % (0-9); NEUT # 10.5 x10^3uL (1.8-7.7); NEUT % 85 % (31-73); PLATELET COUNT 145 x10^3/uL (140-400); RED BLOOD COUNT 3.76 x10^6/uL (3.50-5.40); RED CELL DISTRIBUTION WIDTH 13.6 % (11.5-14.5); WHITE BLOOD COUNT 12.3 x10^3/uL (4.0-11.0)
[2018-03-06 05:20] LABS: ALBUMIN 2.8 g/dL (3.4-5.0); ALBUMIN/GLOBULIN RATIO 0.8 (1.0-1.7); CALCIUM 8.9 mg/dL (8.5-10.1); CREATININE 1.2 mg/dL (0.6-1.0); GFR 43.2; TOTAL BILIRUBIN 0.7 mg/dL (0.2-1.0); TOTAL PROTEIN 6.1 g/dL (6.4-8.2)
[2018-03-06 07:00] VITALS: BP 135/51
[2018-03-06] MEDS: INSULIN LISPRO 300 UNITS/3 ML INSULN.PEN. SQ SCH ×3 (08:00→17:00)
[2018-03-06] MEDS: ASPIRIN CHEWABLE 81 MG TABLET. PO SCH (08:47)
[2018-03-06] MEDS: GLIMEPIRIDE 2 MG TABLET. PO SCH (08:47)
[2018-03-06] MEDS: DULoxetine HCL 20 MG CAPSULE.DR PO SCH (08:47)
[2018-03-06] MEDS: LISINOPRIL 20 MG TABLET PO SCH (08:47)
[2018-03-06] MEDS: FAMOTIDINE 20 MG TABLET. PO SCH ×2 (08:47→19:57)
[2018-03-06] MEDS: CITALOPRAM 20 MG TABLET. PO SCH (08:47)
[2018-03-06] MEDS: amLODIPine BESYLATE 2.5 MG TABLET PO SCH (08:48)
[2018-03-06] MEDS: LORazepam 0.5 MG TABLET PO SCH ×2 (08:48→19:56)
[2018-03-06] MEDS: CARVEDILOL 6.25 MG TABLET. PO SCH ×2 (09:03→17:20)
--- NOTE | 2018-03-06 09:39 | PDOC ---
Infectious Disease Note Vital Sign Vital Signs Vital Signs Date Time Temp Pulse Resp B/P (MAP) Pulse Ox O2 Delivery O2 Flow Rate FiO2 03/06/18 09:03 91 135/51 03/06/18 07:00 100.4 16 97 Room Air 100.4 Labs Lab Laboratory Tests Test 03/05/18 13:20 03/05/18 14:12 03/05/18 16:23 03/05/18 19:36 White Blood Count 19.9 x10^3/uL (4.0-11.0) Red Blood Count 4.12 x10^6/uL (3.50-5.40) Hemoglobin 12.2 g/dL (12.0-15.5) Hematocrit 36.0 % (36.0-47.0) Mean Corpuscular Volume 87 fL (79-100) Mean Corpuscular Hemoglobin 30 pg (25-35) Mean Corpuscular Hemoglobin Concent 34 g/dL (31-37) Red Cell Distribution Width 13.5 % (11.5-14.5) Platelet Count 158 x10^3/uL (140-400) Neutrophils (%) (Auto) 89 % (31-73) Lymphocytes (%) (Auto) 5 % (24-48) Monocytes (%) (Auto) 4 % (0-9) Eosinophils (%) (Auto) 0 % (0-3) Basophils (%) (Auto) 1 % (0-3) Neutrophils # (Auto) 17.8 x10^3uL (1.8-7.7) Lymphocytes # (Auto) 1.1 x10^3/uL (1.0-4.8) Monocytes # (Auto) 0.8 x10^3/uL (0.0-1.1) Eosinophils # (Auto) 0.0 x10^3/uL (0.0-0.7) Basophils # (Auto) 0.2 x10^3/uL (0.0-0.2) Segmented Neutrophils % 80 % (35-66) Band Neutrophils % 11 % (0-9) Lymphocytes % 6 % (24-48) Monocytes % 3 % (0-10) Platelet Estimate Adequate (ADEQUATE) Sodium Level 136 mmol/L (136-145) Potassium Level 4.3 mmol/L (3.5-5.1) Chloride Level 100 mmol/L (98-107) Carbon Dioxide Level 27 mmol/L (21-32) Anion Gap 9 (6-14) Blood Urea Nitrogen 23 mg/dL (7-20) Creatinine 1.4 mg/dL (0.6-1.0) Estimated GFR (Cockcroft-Gault) 36.2 BUN/Creatinine Ratio 16 (6-20) Glucose Level 152 mg/dL (70-99) Lactic Acid Level 1.7 mmol/L (0.4-2.0) Calcium Level 9.4 mg/dL (8.5-10.1) Total Bilirubin 1.0 mg/dL (0.2-1.0) Aspartate Amino Transf (AST/SGOT) 15 U/L (15-37) Alanine Aminotransferase (ALT/SGPT) 21 U/L (14-59) Alkaline Phosphatase 78 U/L (46-116) Total Protein 7.1 g/dL (6.4-8.2) Albumin 3.5 g/dL (3.4-5.0) Albumin/Globulin Ratio 1.0 (1.0-1.7) Urine Collection Type U cath Urine Color Yellow Urine Clarity Clear Urine pH 7.5 Urine Specific [place] 1.010 Urine Protein Negative mg/dL (NEG-TRACE) Urine Glucose (UA) Negative mg/dL (NEG) Urine Ketones (Stick) Negative mg/dL (NEG) Urine Blood Negative (NEG) Urine Nitrite Negative (NEG) Urine Bilirubin Negative (NEG) Urine Urobilinogen Dipstick 0.2 mg/dL (0.2 mg/dL) Urine Leukocyte Esterase Negative (NEG) Urine RBC Rare /HPF (0-2) Urine WBC Occ /HPF (0-4) Urine Squamous Epithelial Cells Mod /LPF Urine Bacteria 0 /HPF (0-FEW) Glucose (Fingerstick) 137 mg/dL (70-99) 138 mg/dL (70-99) Test 03/06/18 04:50 03/06/18 07:52 White Blood Count 12.3 x10^3/uL (4.0-11.0) Red Blood Count 3.76 x10^6/uL (3.50-5.40) Hemoglobin 11.2 g/dL (12.0-15.5) Hematocrit 32.9 % (36.0-47.0) Mean Corpuscular Volume 88 fL (79-100) Mean Corpuscular Hemoglobin 30 pg (25-35) Mean Corpuscular Hemoglobin Concent 34 g/dL (31-37) Red Cell Distribution Width 13.6 % (11.5-14.5) Platelet Count 145 x10^3/uL (140-400) Neutrophils (%) (Auto) 85 % (31-73) Lymphocytes (%) (Auto) 9 % (24-48) Monocytes (%) (Auto) 5 % (0-9) Eosinophils (%) (Auto) 1 % (0-3) Basophils (%) (Auto) 0 % (0-3) Neutrophils # (Auto) 10.5 x10^3uL (1.8-7.7) Lymphocytes # (Auto) 1.1 x10^3/uL (1.0-4.8) Monocytes # (Auto) 0.6 x10^3/uL (0.0-1.1) Eosinophils # (Auto) 0.1 x10^3/uL (0.0-0.7) Basophils # (Auto) 0.0 x10^3/uL (0.0-0.2) Sodium Level 139 mmol/L (136-145) Potassium Level 4.0 mmol/L (3.5-5.1) Chloride Level 106 mmol/L (98-107) Carbon Dioxide Level 22 mmol/L (21-32) Anion Gap 11 (6-14) Blood Urea Nitrogen 16 mg/dL (7-20) Creatinine 1.2 mg/dL (0.6-1.0) Estimated GFR (Cockcroft-Gault) 43.2 BUN/Creatinine Ratio 13 (6-20) Glucose Level 133 mg/dL (70-99) Calcium Level 8.9 mg/dL (8.5-10.1) Total Bilirubin 0.7 mg/dL (0.2-1.0) Aspartate Amino Transf (AST/SGOT) 16 U/L (15-37) Alanine Aminotransferase (ALT/SGPT) 16 U/L (14-59) Alkaline Phosphatase 64 U/L (46-116) Total Protein 6.1 g/dL (6.4-8.2) Albumin 2.8 g/dL (3.4-5.0) Albumin/Globulin Ratio 0.8 (1.0-1.7) Glucose (Fingerstick) 115 mg/dL (70-99) Objective Assessment Fever Rt leg cellulitis ? Rt foot recent fracture Recent UTI per history Leukocytosis Plan Plan of Care ceftriaxone x ray rt foot LAURITA PATTERSON MD Mar 06, 2018 09:38
--- NOTE | 2018-03-06 11:43 | RAD ---
Right foot, 2 views, 03/06/2018: HISTORY: Follow-up old foot fracture No previous foot radiographs are available at this time for comparison purposes. There is patchy bony demineralization. A mild hallux valgus deformity is present with degenerative change at the first MTP joint. A fracture of the proximal second metatarsal is evident. It is nondisplaced. No bridging callus is evident. There is deformity of the proximal fifth metatarsal in a pattern compatible with an old healed fracture. No other fracture or dislocation is evident. There is moderate generalized subcutaneous edema. IMPRESSION: 1. Nondisplaced, incompletely healed proximal second metatarsal fracture. 2. Healed proximal fifth metatarsal fracture. Electronically signed by: Lyle Rivera MD (03/06/2018 11:39 AM) [facility]
[2018-03-06 11:45] VITALS: BP 119/42
--- NOTE | 2018-03-06 12:11 | PDOC ---
PROGRESS NOTES Chief Complaint Chief Complaint pain, foot, Vitals Vitals Vital Signs Date Time Temp Pulse Resp B/P (MAP) Pulse Ox O2 Delivery O2 Flow Rate FiO2 03/06/18 11:45 99.3 82 16 119/42 (67) 94 Room Air 99.3 Physical Exam Physical Exam seen examined bedside lungs: clear cvs:s1s2 regular abd: soft, bs active ext; no edema neuro: alert and conversational neck: supple skin: warm erythema right foot General: Alert, Cooperative, No acute distress Lungs: Clear, Other Abdomen: Normal bowel sounds Extremities: No clubbing, Normal pulses, Other Skin: Other (redness to bilat LE, she reports as stable, not painful ) Labs LABS Laboratory Tests Test 03/05/18 13:20 03/05/18 14:12 03/05/18 16:23 03/05/18 19:36 White Blood Count 19.9 x10^3/uL (4.0-11.0) Red Blood Count 4.12 x10^6/uL (3.50-5.40) Hemoglobin 12.2 g/dL (12.0-15.5) Hematocrit 36.0 % (36.0-47.0) Mean Corpuscular Volume 87 fL (79-100) Mean Corpuscular Hemoglobin 30 pg (25-35) Mean Corpuscular Hemoglobin Concent 34 g/dL (31-37) Red Cell Distribution Width 13.5 % (11.5-14.5) Platelet Count 158 x10^3/uL (140-400) Neutrophils (%) (Auto) 89 % (31-73) Lymphocytes (%) (Auto) 5 % (24-48) Monocytes (%) (Auto) 4 % (0-9) Eosinophils (%) (Auto) 0 % (0-3) Basophils (%) (Auto) 1 % (0-3) Neutrophils # (Auto) 17.8 x10^3uL (1.8-7.7) Lymphocytes # (Auto) 1.1 x10^3/uL (1.0-4.8) Monocytes # (Auto) 0.8 x10^3/uL (0.0-1.1) Eosinophils # (Auto) 0.0 x10^3/uL (0.0-0.7) Basophils # (Auto) 0.2 x10^3/uL (0.0-0.2) Segmented Neutrophils % 80 % (35-66) Band Neutrophils % 11 % (0-9) Lymphocytes % 6 % (24-48) Monocytes % 3 % (0-10) Platelet Estimate Adequate (ADEQUATE) Sodium Level 136 mmol/L (136-145) Potassium Level 4.3 mmol/L (3.5-5.1) Chloride Level 100 mmol/L (98-107) Carbon Dioxide Level 27 mmol/L (21-32) Anion Gap 9 (6-14) Blood Urea Nitrogen 23 mg/dL (7-20) Creatinine 1.4 mg/dL (0.6-1.0) Estimated GFR (Cockcroft-Gault) 36.2 BUN/Creatinine Ratio 16 (6-20) Glucose Level 152 mg/dL (70-99) Lactic Acid Level 1.7 mmol/L (0.4-2.0) Calcium Level 9.4 mg/dL (8.5-10.1) Total Bilirubin 1.0 mg/dL (0.2-1.0) Aspartate Amino Transf (AST/SGOT) 15 U/L (15-37) Alanine Aminotransferase (ALT/SGPT) 21 U/L (14-59) Alkaline Phosphatase 78 U/L (46-116) Total Protein 7.1 g/dL (6.4-8.2) Albumin 3.5 g/dL (3.4-5.0) Albumin/Globulin Ratio 1.0 (1.0-1.7) Urine Collection Type U cath Urine Color Yellow Urine Clarity Clear Urine pH 7.5 Urine Specific Clarence 1.010 Urine Protein Negative mg/dL (NEG-TRACE) Urine Glucose (UA) Negative mg/dL (NEG) Urine Ketones (Stick) Negative mg/dL (NEG) Urine Blood Negative (NEG) Urine Nitrite Negative (NEG) Urine Bilirubin Negative (NEG) Urine Urobilinogen Dipstick 0.2 mg/dL (0.2 mg/dL) Urine Leukocyte Esterase Negative (NEG) Urine RBC Rare /HPF (0-2) Urine WBC Occ /HPF (0-4) Urine Squamous Epithelial Cells Mod /LPF Urine Bacteria 0 /HPF (0-FEW) Glucose (Fingerstick) 137 mg/dL (70-99) 138 mg/dL (70-99) Test 03/06/18 04:50 03/06/18 07:52 03/06/18 10:50 White Blood Count 12.3 x10^3/uL (4.0-11.0) Red Blood Count 3.76 x10^6/uL (3.50-5.40) Hemoglobin 11.2 g/dL (12.0-15.5) Hematocrit 32.9 % (36.0-47.0) Mean Corpuscular Volume 88 fL (79-100) Mean Corpuscular Hemoglobin 30 pg (25-35) Mean Corpuscular Hemoglobin Concent 34 g/dL (31-37) Red Cell Distribution Width 13.6 % (11.5-14.5) Platelet Count 145 x10^3/uL (140-400) Neutrophils (%) (Auto) 85 % (31-73) Lymphocytes (%) (Auto) 9 % (24-48) Monocytes (%) (Auto) 5 % (0-9) Eosinophils (%) (Auto) 1 % (0-3) Basophils (%) (Auto) 0 % (0-3) Neutrophils # (Auto) 10.5 x10^3uL (1.8-7.7) Lymphocytes # (Auto) 1.1 x10^3/uL (1.0-4.8) Monocytes # (Auto) 0.6 x10^3/uL (0.0-1.1) Eosinophils # (Auto) 0.1 x10^3/uL (0.0-0.7) Basophils # (Auto) 0.0 x10^3/uL (0.0-0.2) Sodium Level 139 mmol/L (136-145) Potassium Level 4.0 mmol/L (3.5-5.1) Chloride Level 106 mmol/L (98-107) Carbon Dioxide Level 22 mmol/L (21-32) Anion Gap 11 (6-14) Blood Urea Nitrogen 16 mg/dL (7-20) Creatinine 1.2 mg/dL (0.6-1.0) Estimated GFR (Cockcroft-Gault) 43.2 BUN/Creatinine Ratio 13 (6-20) Glucose Level 133 mg/dL (70-99) Calcium Level 8.9 mg/dL (8.5-10.1) Total Bilirubin 0.7 mg/dL (0.2-1.0) Aspartate Amino Transf (AST/SGOT) 16 U/L (15-37) Alanine Aminotransferase (ALT/SGPT) 16 U/L (14-59) Alkaline Phosphatase 64 U/L (46-116) Total Protein 6.1 g/dL (6.4-8.2) Albumin 2.8 g/dL (3.4-5.0) Albumin/Globulin Ratio 0.8 (1.0-1.7) Glucose (Fingerstick) 115 mg/dL (70-99) 180 mg/dL (70-99) Assessment and Plan Assessmemt and Plan Problems Medical Problems: (1) Acute renal failure, unspecified Status: Acute 2. possible cellulitis, right foot 3. sirs 4. metatarsal fracture, plan: d/c fluids ortho input reviewed ID, abx per them see orders dsicussed and educated pt and family bedside Comment Review of Relevant I have reviewed the following items nancy (where applicable) has been applied. Labs Laboratory Tests Test 03/05/18 13:20 03/05/18 14:12 03/05/18 16:23 03/05/18 19:36 White Blood Count 19.9 x10^3/uL (4.0-11.0) Red Blood Count 4.12 x10^6/uL (3.50-5.40) Hemoglobin 12.2 g/dL (12.0-15.5) Hematocrit 36.0 % (36.0-47.0) Mean Corpuscular Volume 87 fL (79-100) Mean Corpuscular Hemoglobin 30 pg (25-35) Mean Corpuscular Hemoglobin Concent 34 g/dL (31-37) Red Cell Distribution Width 13.5 % (11.5-14.5) Platelet Count 158 x10^3/uL (140-400) Neutrophils (%) (Auto) 89 % (31-73) Lymphocytes (%) (Auto) 5 % (24-48) Monocytes (%) (Auto) 4 % (0-9) Eosinophils (%) (Auto) 0 % (0-3) Basophils (%) (Auto) 1 % (0-3) Neutrophils # (Auto) 17.8 x10^3uL (1.8-7.7) Lymphocytes # (Auto) 1.1 x10^3/uL (1.0-4.8) Monocytes # (Auto) 0.8 x10^3/uL (0.0-1.1) Eosinophils # (Auto) 0.0 x10^3/uL (0.0-0.7) Basophils # (Auto) 0.2 x10^3/uL (0.0-0.2) Segmented Neutrophils % 80 % (35-66) Band Neutrophils % 11 % (0-9) Lymphocytes % 6 % (24-48) Monocytes % 3 % (0-10) Platelet Estimate Adequate (ADEQUATE) Sodium Level 136 mmol/L (136-145) Potassium Level 4.3 mmol/L (3.5-5.1) Chloride Level 100 mmol/L (98-107) Carbon Dioxide Level 27 mmol/L (21-32) Anion Gap 9 (6-14) Blood Urea Nitrogen 23 mg/dL (7-20) Creatinine 1.4 mg/dL (0.6-1.0) Estimated GFR (Cockcroft-Gault) 36.2 BUN/Creatinine Ratio 16 (6-20) Glucose Level 152 mg/dL (70-99) Lactic Acid Level 1.7 mmol/L (0.4-2.0) Calcium Level 9.4 mg/dL (8.5-10.1) Total Bilirubin 1.0 mg/dL (0.2-1.0) Aspartate Amino Transf (AST/SGOT) 15 U/L (15-37) Alanine Aminotransferase (ALT/SGPT) 21 U/L (14-59) Alkaline Phosphatase 78 U/L (46-116) Total Protein 7.1 g/dL (6.4-8.2) Albumin 3.5 g/dL (3.4-5.0) Albumin/Globulin Ratio 1.0 (1.0-1.7) Urine Collection Type U cath Urine Color Yellow Urine Clarity Clear Urine pH 7.5 Urine Specific Clarence 1.010 Urine Protein Negative mg/dL (NEG-TRACE) Urine Glucose (UA) Negative mg/dL (NEG) Urine Ketones (Stick) Negative mg/dL (NEG) Urine Blood Negative (NEG) Urine Nitrite Negative (NEG) Urine Bilirubin Negative (NEG) Urine Urobilinogen Dipstick 0.2 mg/dL (0.2 mg/dL) Urine Leukocyte Esterase Negative (NEG) Urine RBC Rare /HPF (0-2) Urine WBC Occ /HPF (0-4) Urine Squamous Epithelial Cells Mod /LPF Urine Bacteria 0 /HPF (0-FEW) Glucose (Fingerstick) 137 mg/dL (70-99) 138 mg/dL (70-99) Test 03/06/18 04:50 03/06/18 07:52 03/06/18 10:50 White Blood Count 12.3 x10^3/uL (4.0-11.0) Red Blood Count 3.76 x10^6/uL (3.50-5.40) Hemoglobin 11.2 g/dL (12.0-15.5) Hematocrit 32.9 % (36.0-47.0) Mean Corpuscular Volume 88 fL (79-100) Mean Corpuscular Hemoglobin 30 pg (25-35) Mean Corpuscular Hemoglobin Concent 34 g/dL (31-37) Red Cell Distribution Width 13.6 % (11.5-14.5) Platelet Count 145 x10^3/uL (140-400) Neutrophils (%) (Auto) 85 % (31-73) Lymphocytes (%) (Auto) 9 % (24-48) Monocytes (%) (Auto) 5 % (0-9) Eosinophils (%) (Auto) 1 % (0-3) Basophils (%) (Auto) 0 % (0-3) Neutrophils # (Auto) 10.5 x10^3uL (1.8-7.7) Lymphocytes # (Auto) 1.1 x10^3/uL (1.0-4.8) Monocytes # (Auto) 0.6 x10^3/uL (0.0-1.1) Eosinophils # (Auto) 0.1 x10^3/uL (0.0-0.7) Basophils # (Auto) 0.0 x10^3/uL (0.0-0.2) Sodium Level 139 mmol/L (136-145) Potassium Level 4.0 mmol/L (3.5-5.1) Chloride Level 106 mmol/L (98-107) Carbon Dioxide Level 22 mmol/L (21-32) Anion Gap 11 (6-14) Blood Urea Nitrogen 16 mg/dL (7-20) Creatinine 1.2 mg/dL (0.6-1.0) Estimated GFR (Cockcroft-Gault) 43.2 BUN/Creatinine Ratio 13 (6-20) Glucose Level 133 mg/dL (70-99) Calcium Level 8.9 mg/dL (8.5-10.1) Total Bilirubin 0.7 mg/dL (0.2-1.0) Aspartate Amino Transf (AST/SGOT) 16 U/L (15-37) Alanine Aminotransferase (ALT/SGPT) 16 U/L (14-59) Alkaline Phosphatase 64 U/L (46-116) Total Protein 6.1 g/dL (6.4-8.2) Albumin 2.8 g/dL (3.4-5.0) Albumin/Globulin Ratio 0.8 (1.0-1.7) Glucose (Fingerstick) 115 mg/dL (70-99) 180 mg/dL (70-99) Laboratory Tests Test 03/05/18 13:20 03/05/18 14:12 03/05/18 16:23 03/05/18 19:36 White Blood Count 19.9 x10^3/uL (4.0-11.0) Red Blood Count 4.12 x10^6/uL (3.50-5.40) Hemoglobin 12.2 g/dL (12.0-15.5) Hematocrit 36.0 % (36.0-47.0) Mean Corpuscular Volume 87 fL (79-100) Mean Corpuscular Hemoglobin 30 pg (25-35) Mean Corpuscular Hemoglobin Concent 34 g/dL (31-37) Red Cell Distribution Width 13.5 % (11.5-14.5) Platelet Count 158 x10^3/uL (140-400) Neutrophils (%) (Auto) 89 % (31-73) Lymphocytes (%) (Auto) 5 % (24-48) Monocytes (%) (Auto) 4 % (0-9) Eosinophils (%) (Auto) 0 % (0-3) Basophils (%) (Auto) 1 % (0-3) Neutrophils # (Auto) 17.8 x10^3uL (1.8-7.7) Lymphocytes # (Auto) 1.1 x10^3/uL (1.0-4.8) Monocytes # (Auto) 0.8 x10^3/uL (0.0-1.1) Eosinophils # (Auto) 0.0 x10^3/uL (0.0-0.7) Basophils # (Auto) 0.2 x10^3/uL (0.0-0.2) Segmented Neutrophils % 80 % (35-66) Band Neutrophils % 11 % (0-9) Lymphocytes % 6 % (24-48) Monocytes % 3 % (0-10) Platelet Estimate Adequate (ADEQUATE) Sodium Level 136 mmol/L (136-145) Potassium Level 4.3 mmol/L (3.5-5.1) Chloride Level 100 mmol/L (98-107) Carbon Dioxide Level 27 mmol/L (21-32) Anion Gap 9 (6-14) Blood Urea Nitrogen 23 mg/dL (7-20) Creatinine 1.4 mg/dL (0.6-1.0) Estimated GFR (Cockcroft-Gault) 36.2 BUN/Creatinine Ratio 16 (6-20) Glucose Level 152 mg/dL (70-99) Lactic Acid Level 1.7 mmol/L (0.4-2.0) Calcium Level 9.4 mg/dL (8.5-10.1) Total Bilirubin 1.0 mg/dL (0.2-1.0) Aspartate Amino Transf (AST/SGOT) 15 U/L (15-37) Alanine Aminotransferase (ALT/SGPT) 21 U/L (14-59) Alkaline Phosphatase 78 U/L (46-116) Total Protein 7.1 g/dL (6.4-8.2) Albumin 3.5 g/dL (3.4-5.0) Albumin/Globulin Ratio 1.0 (1.0-1.7) Urine Collection Type U cath Urine Color Yellow Urine Clarity Clear Urine pH 7.5 Urine Specific Clarence 1.010 Urine Protein Negative mg/dL (NEG-TRACE) Urine Glucose (UA) Negative mg/dL (NEG) Urine Ketones (Stick) Negative mg/dL (NEG) Urine Blood Negative (NEG) Urine Nitrite Negative (NEG) Urine Bilirubin Negative (NEG) Urine Urobilinogen Dipstick 0.2 mg/dL (0.2 mg/dL) Urine Leukocyte Esterase Negative (NEG) Urine RBC Rare /HPF (0-2) Urine WBC Occ /HPF (0-4) Urine Squamous Epithelial Cells Mod /LPF Urine Bacteria 0 /HPF (0-FEW) Glucose (Fingerstick) 137 mg/dL (70-99) 138 mg/dL (70-99) Test 03/06/18 04:50 03/06/18 07:52 03/06/18 10:50 White Blood Count 12.3 x10^3/uL (4.0-11.0) Red Blood Count 3.76 x10^6/uL (3.50-5.40) Hemoglobin 11.2 g/dL (12.0-15.5) Hematocrit 32.9 % (36.0-47.0) Mean Corpuscular Volume 88 fL (79-100) Mean Corpuscular Hemoglobin 30 pg (25-35) Mean Corpuscular Hemoglobin Concent 34 g/dL (31-37) Red Cell Distribution Width 13.6 % (11.5-14.5) Platelet Count 145 x10^3/uL (140-400) Neutrophils (%) (Auto) 85 % (31-73) Lymphocytes (%) (Auto) 9 % (24-48) Monocytes (%) (Auto) 5 % (0-9) Eosinophils (%) (Auto) 1 % (0-3) Basophils (%) (Auto) 0 % (0-3) Neutrophils # (Auto) 10.5 x10^3uL (1.8-7.7) Lymphocytes # (Auto) 1.1 x10^3/uL (1.0-4.8) Monocytes # (Auto) 0.6 x10^3/uL (0.0-1.1) Eosinophils # (Auto) 0.1 x10^3/uL (0.0-0.7) Basophils # (Auto) 0.0 x10^3/uL (0.0-0.2) Sodium Level 139 mmol/L (136-145) Potassium Level 4.0 mmol/L (3.5-5.1) Chloride Level 106 mmol/L (98-107) Carbon Dioxide Level 22 mmol/L (21-32) Anion Gap 11 (6-14) Blood Urea Nitrogen 16 mg/dL (7-20) Creatinine 1.2 mg/dL (0.6-1.0) Estimated GFR (Cockcroft-Gault) 43.2 BUN/Creatinine Ratio 13 (6-20) Glucose Level 133 mg/dL (70-99) Calcium Level 8.9 mg/dL (8.5-10.1) Total Bilirubin 0.7 mg/dL (0.2-1.0) Aspartate Amino Transf (AST/SGOT) 16 U/L (15-37) Alanine Aminotransferase (ALT/SGPT) 16 U/L (14-59) Alkaline Phosphatase 64 U/L (46-116) Total Protein 6.1 g/dL (6.4-8.2) Albumin 2.8 g/dL (3.4-5.0) Albumin/Globulin Ratio 0.8 (1.0-1.7) Glucose (Fingerstick) 115 mg/dL (70-99) 180 mg/dL (70-99) Medications Current Medications Sodium Chloride 1,000 ml @ 1,000 mls/hr Q1H IV Last administered on 03/05/18at 13:26; Start 03/05/18 at 12:43; Stop 03/05/18 at 13:42; Status DC Acetaminophen (Tylenol) 1,000 mg 1X ONCE PO Last administered on 03/05/18 14: 27; Start 03/05/18 at 14:00; Stop 03/05/18 at 14:01; Status DC Ceftriaxone Sodium 50 ml @ 100 mls/hr 1X ONCE IV Last administered on 14:27; Start 03/05/18 at 14:00; Stop 03/05/18 at 14:29; Status DC Ceftriaxone Sodium (Rocephin) 1 gm Q24H IVP ; Start 03/06/18 at 14:00 Sodium Chloride 1,000 ml @ 150 mls/hr Q6H40M IV Last administered on at 04:54; Start 03/05/18 at 15:00; Stop 03/06/18 at 14:59 Amlodipine Besylate (Norvasc) 2.5 mg DAILY PO Last administered on 03/06/18 08 :48; Start 03/05/18 at 18:30 Aspirin (Children'S Aspirin) 81 mg DAILY PO Last administered on 03/06/18 08: 47; Start 03/06/18 at 09:00 Carvedilol (Coreg) 6.25 mg BIDWMEALS PO Last administered on 03/06/18 09:03; Start 03/05/18 at 18:30 Citalopram Hydrobromide (CeleXA) 40 mg DAILY PO Last administered on 03/06/18 08:47; Start 03/06/18 at 09:00 Duloxetine HCl (Cymbalta) 20 mg DAILY PO Last administered on 03/06/18 08:47; Start 03/06/18 at 09:00 Furosemide (Lasix) 40 mg QODAY PO ; Start 03/07/18 at 09:00 Lisinopril (Prinivil) 20 mg DAILY PO Last administered on 03/06/18 08:47; Start 03/05/18 at 18:30 Lorazepam (Ativan) 0.5 mg BID PO Last administered on 03/06/18 08:48; Start at 21:00 Glimepiride (Amaryl) 0.5 mg DAILY PO Last administered on 03/06/18 08:47; Start 03/06/18 at 09:00 Insulin Glargine (Lantus) 18 units QHS SQ Last administered on 03/05/18at 21:03 ; Start 03/05/18 at 21:00 Famotidine (Pepcid) 20 mg BID PO Last administered on 03/06/18 08:47; Start at 21:00 Simvastatin (Zocor) 5 mg QHS PO Last administered on 03/05/18at 20:59; Start at 21:00 Insulin Human Lispro (HumaLOG) 0-7 UNITS TIDWMEALS SQ ; Start 03/06/18 at 08:00 Dextrose (Dextrose 50%-Water Syringe) 12.5 gm PRN Q15MIN PRN IV SEE COMMENTS; Start 03/05/18 at 18:15 Active Scripts Active Reported Cymbalta (Duloxetine Hcl) 20 Mg Capsule.dr 20 Mg PO DAILY Lisinopril 20 Mg Tablet 1 Tab PO DAILY Furosemide 40 Mg Tablet 1 Tab PO QODAY Amlodipine Besylate 5 Mg Tablet 2.5 Mg PO DAILY Glimepiride 1 Mg Tablet 0.5 Mg PO DAILY Lantus (Insulin Glargine,Hum.rec.anlog) 100 Unit/1 Ml Vial 18 Unit SQ QHS Citalopram Hbr (Citalopram Hydrobromide) 20 Mg Tablet 40 Mg PO DAILY Lawrence Chewable (Aspirin) 81 Mg Tab.chew 81 Mg PO Fish Oil ([place]-3 Fatty Acids) 500 Mg Capsule. 3,600 Mg PO Women's One Daily (Multivit With Calcium,Iron,Min) 1 Each Tablet 1 Each PO Pravastatin Sodium 40 Mg Tablet 40 Mg PO Carvedilol 12.5 Mg Tablet 6.25 Mg PO BID Ranitidine Hcl 300 Mg Capsule 300 Mg PO BID Lorazepam 0.5 Mg Tablet 0.5 Mg PO BID MDD 1mg Vitals/I & O Vital Sign - Last 24 Hours 03/05/18 03/05/18 03/05/18 03/05/18 12:20 13:21 13:44 13:51 Temp 101.6 101.6 Pulse 94 94 92 90 Resp 16 20 20 20 B/P (MAP) 176/77 (110) 181/75 (110) 166/73 (104) 176/70 (105) Pulse Ox 98 94 96 95 O2 Delivery Room Air Room Air Room Air Room Air 03/05/18 03/05/18 03/05/18 03/05/18 14:21 14:51 15:21 16:00 Temp 97.9 97.9 Pulse 94 93 94 88 Resp 18 18 B/P (MAP) 158/71 (100) 148/67 (94) 162/66 (98) 129/53 (78) Pulse Ox 96 96 94 93 O2 Delivery Room Air Room Air Room Air Room Air 03/05/18 03/05/18 03/05/18 03/05/18 17:39 18:44 18:45 18:45 Pulse 94 94 94 B/P (MAP) 162/66 162/66 162/66 O2 Delivery Room Air 03/05/18 03/05/18 03/05/18 03/06/18 19:00 19:29 23:00 03:00 Temp 97.9 99.7 98.7 97.9 99.7 98.7 Pulse 79 89 88 Resp 18 18 18 B/P (MAP) 150/58 (88) 140/53 (82) 135/52 (79) Pulse Ox 94 90 96 O2 Delivery Room Air Room Air Room Air Room Air 03/06/18 03/06/18 03/06/18 03/06/18 07:00 08:47 08:48 09:03 Temp 100.4 100.4 Pulse 91 91 91 91 Resp 16 B/P (MAP) 135/51 (79) 135/51 135/51 135/51 Pulse Ox 97 O2 Delivery Room Air 03/06/18 11:45 Temp 99.3 99.3 Pulse 82 Resp 16 B/P (MAP) 119/42 (67) Pulse Ox 94 O2 Delivery Room Air Intake and Output 03/05/18 03/05/18 03/06/18 15:00 23:00 07:00 Intake Total 1300 ml 360 ml Balance 1300 ml 360 ml DAMION DON MD Mar 06, 2018 12:11
[2018-03-06] MEDS ORDERED: FUROSEMIDE 40 MG/4 ML VIAL. IVP ONE (13:30)
[2018-03-06] MEDS: cefTRIAXone IV Push 1 GM VIAL. IVP SCH (14:00)
--- NOTE | 2018-03-06 14:01 | RAD ---
Portable chest, 03/06/2018: HISTORY: Dyspnea, fever, UTI Comparison is made to a study from 03/05/2018. The heart is at the upper limits of normal in size. There is calcific plaquing of the aorta. Slightly prominent pulmonary markings suggest mild fibrosis. No pulmonary consolidation is seen. There is no evidence of pleural fluid. 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 IMPRESSION: No acute abnormality is detected with no significant change since yesterday's study. Electronically signed by: Lyel Rivera MD (03/06/2018 1:58 PM) [facility]
[2018-03-06 15:58] VITALS: BP 171/64
[2018-03-06] MEDS ORDERED: ALPRAZolam 0.25 MG TABLET PO ONE (17:00)
[2018-03-06] MEDS: ALBUTEROL SULFATE 2.5 MG/3 ML NEBU. NEB SCH ×2 (17:30→19:50)
[2018-03-06 19:10] VITALS: BP 140/50
[2018-03-06] MEDS ORDERED: ACETAMINOPHEN 325 MG TABLET. PO ONE (19:30)
[2018-03-06] MEDS ORDERED: ACETAMINOPHEN 500 MG TABLET PO PRN (19:30)
[2018-03-06] MEDS: SIMVASTATIN 5 MG TABLET. PO SCH (19:56)
[2018-03-06] MEDS: traMADol 50 MG TABLET PO PRN (19:57)
[2018-03-06] MEDS: LACTOBACILLUS RHAMNOSUS GG 1 CAPSULE. PO SCH (19:57)
--- NOTE | 2018-03-06 20:06 | CONS ---
DATE OF CONSULTATION: 03/06/2018 REQUESTING PHYSICIAN: Dr. Craig. REASON FOR CONSULTATION: Fever. HISTORY OF PRESENT ILLNESS: This is an 82-year-old female who lives at home, who presented with not feeling well, has had some nausea, vomiting and fever. Evidently a few days ago, the patient had gone to urgent care and was diagnosed with UTI and penicillin was given. The patient started vomiting, hence she went back and they changed the antibiotics, and then she was able to keep things down but just did not feel better; hence, she came in. Her urinalysis was unremarkable. The patient had a white count of 19,000 and the patient had 100.4 fever. The patient has been receiving Rocephin and consult has been requested. The patient denies any more nausea or vomiting. Denies any diarrhea. Denies any chest pain, shortness of breath, or abdominal pain. The patient evidently also said that she has a brace on the right foot and she broke the foot a few weeks ago and she has had redness of the right leg. PAST MEDICAL HISTORY: Positive for coronary artery disease, diabetes, hypertension, hyperlipidemia, renal insufficiency, history of arrhythmia, anxiety disorder. PAST SURGICAL HISTORY: Has had hysterectomy and cardiac stenting done. SOCIAL HISTORY: Negative for smoking, alcohol, illicit drug use. ALLERGIES: SHE IS LISTED ALLERGIC TO PENICILLIN; now because she started vomiting, she is truly not allergic, it is a side effect. REVIEW OF SYSTEMS: As per HPI. All other systems reviewed are negative. CURRENT MEDICATION: The patient is on Rocephin. PHYSICAL EXAMINATION: GENERAL: Alert and oriented female, not in distress. VITAL SIGNS: T-max is 100.4. Rest of the vital signs is stable. HEENT: NAD. NECK: Supple, no JVP, no lymphadenopathy. LUNGS: Clear. CARDIOVASCULAR: S1, S2 regular. ABDOMEN: Benign. EXTREMITIES: Right lower extremity has more rhythm than the left. The patient does have stasis dermatitis on both the legs. There is no other skin breakdown. The patient has a brace and she says she has fracture into the second and third metatarsal area, although there is no tenderness or swelling. NEUROLOGIC: The patient is neurologically intact. LABORATORY DATA: White count is to 12,000 from 19,000. BUN and creatinine are normal. Lactic acid was normal. Actually, she was dehydrated with BUN and creatinine 23 and 1.4, which have improved. Urinalysis is unremarkable. Her culture is pending. Her abdominal CT and chest x-ray is unremarkable. IMPRESSION: 1. Fever, most likely to be viral, although she does have a little more redness of the right leg than the left, that can be responsible. 2. Recent "urinary tract infection." 3. Recent right foot fracture, she says. 4. Leukocytosis. PLAN: Recommend to continue Rocephin. We will get foot x-ray, supportive care, leg elevation and hopefully if she is fever-free for 24 hours, then she may be able to get out of here. Thank you very much, Dr. Craig for giving me the opportunity to participate in this patient's care. LAURITA PATTERSON MD DR: CHAPITO/guido JOB#: [id number] / [id number]
[2018-03-06] MEDS: INSULIN GLARGINE 300 UNITS/3 ML INSULN.PEN. SQ SCH (20:34)
[2018-03-07 01:44] VITALS: BP 120/41
--- NOTE | 2018-03-07 02:32 | CONS ---
DATE OF CONSULTATION: 03/06/2018 REQUESTING CONSULTATION: Lulu Craig MD REASON FOR CONSULTATION: Left foot fracture and pain. HISTORY OF PRESENT ILLNESS: The patient is an 82-year-old female who was admitted through the Emergency Department with UTI, sepsis, apparently unable to tolerate her medicine due to vomiting and presented with weakness, fever, some abdominal pain, has a history of frequent urinary tract infections. Regarding her foot pain issues, she states that she has had chronic pain in both feet from neuropathy, worst in her toes. Apparently, she is unable to take gabapentin or Lyrica due to kidney dysfunction and instead used topical type creams. She is in a Cam walker boot for her right leg, but also complains of left foot pain, going on for several weeks and has reported that she has a history of fracture. She states that the worst pain really is on the top of her foot, but particularly distally over her toes where she has a constant burning. She really has no significant pain weightbearing, it is more with pressure and again more distally on the feet towards the toes. PAST MEDICAL HISTORY: Significant for type 2 diabetes, hypertension, history of AL, stage 4 kidney disease, frequent urinary tract infections, hypercholesterolemia, reflux disease, depression, coronary artery disease, anxiety, arrhythmias. PAST SURGICAL HISTORY: Significant for cardiac stent, surgery on her arm and hysterectomy. ALLERGIES: INCLUDE PENICILLINS AND CODEINE. MEDICATIONS: List is reviewed. FAMILY HISTORY: Noncontributory. REVIEW OF SYSTEMS: Significant for the frequent urinary tract infections, now improved with treatment. No fever really since antibiotic treatment post-admission. She does have the ongoing burning pain in both feet and a history of left foot fracture. PHYSICAL EXAMINATION: GENERAL: This is a pleasant, cooperative 82-year-old female, alert and oriented, no acute distress. MUSCULOSKELETAL: On examination of the feet, again she is tender mainly on palpation over the toes. She says that manifests in the burning type pain. Capillary refill is intact. Her toenails neelima and return appropriately. She does have good warmth and decreased sensation overall, not so much to stocking distribution but distal in her feet. She does have some tenderness over the dorsum of the foot but more distally, really not over the proximal metatarsal fracture site. Normal alignment, stability of bilateral ankle and hindfoot. Normal examination of bilateral hips and knees. IMAGING: X-rays of left foot show a healed previous fracture of the fifth metatarsal. There is a nondisplaced healing fracture of the base of the second metatarsal as well, confirmed on x-ray report. IMPRESSION: 1. Foot pain. 2. History of severe neuropathy, unable to be treated by typical medicines due to kidney dysfunction, partial relief with topical treatments. 3. Healing second metatarsal base fracture that I believe is minimally symptomatic. TREATMENT PLAN: I went over with her that as far as the foot fracture goes that she can bear weight. I would encourage her to bear weight flat footed as opposed to upon her toes. She really cannot walk very well anyway due to the neuropathy impeding her sensation and I think her biggest problem really overall based on her description is the burning pain, worse with pressure, primarily on the toes and the dorsal aspect of the distal foot. It is really not over the area of the fracture itself, which appears to be healing and nondisplaced. She also has a healed fracture of the fifth metatarsal on the left as well. Treatment plan in terms of her mobilization, really no restrictions other than the above with flat footed weightbearing which she already does. No additional support should be necessary regarding the treatment of her neuropathy, I think that is her biggest issue, but of course is limited due to her kidney function and will be somewhat of a djoss-alo-wzwen process for her. Unfortunately, I do not really think I have much more to offer from an orthopedic standpoint at this time. Follow up with me can be on an as-needed basis only. LISA TALBOT MD DR: FAVIO/guido JOB#: [id number] / [id number]
[2018-03-07 05:05] LABS: BASO % 0 % (0-3); EOS # 0.2 x10^3/uL (0.0-0.7); EOS % 3 % (0-3); HEMATOCRIT 33.1 % (36.0-47.0); HEMOGLOBIN 11.3 g/dL (12.0-15.5); LYMPH # 1.6 x10^3/uL (1.0-4.8); LYMPH % 20 % (24-48); MEAN CORPUSCULAR HEMOGLOBIN 30 pg (25-35); MEAN CORPUSCULAR HGB CONC 34 g/dL (31-37); MEAN CORPUSCULAR VOLUME 88 fL (79-100); MONO # 0.8 x10^3/uL (0.0-1.1); MONO % 10 % (0-9); NEUT # 5.4 x10^3uL (1.8-7.7); NEUT % 68 % (31-73); PLATELET COUNT 148 x10^3/uL (140-400); RED BLOOD COUNT 3.74 x10^6/uL (3.50-5.40); RED CELL DISTRIBUTION WIDTH 13.5 % (11.5-14.5); WHITE BLOOD COUNT 7.9 x10^3/uL (4.0-11.0)
[2018-03-07 05:51] LABS: ALBUMIN 2.6 g/dL (3.4-5.0); ALBUMIN/GLOBULIN RATIO 0.7 (1.0-1.7); CALCIUM 8.6 mg/dL (8.5-10.1); CREATININE 1.4 mg/dL (0.6-1.0); GFR 36.2; POTASSIUM 3.6 mmol/L (3.5-5.1); TOTAL BILIRUBIN 0.6 mg/dL (0.2-1.0); TOTAL PROTEIN 6.3 g/dL (6.4-8.2)
[2018-03-07 07:00] VITALS: BP 123/40
[2018-03-07] MEDS: ALBUTEROL SULFATE 2.5 MG/3 ML NEBU. NEB SCH ×4 (07:46→19:36)
[2018-03-07] MEDS: INSULIN LISPRO 300 UNITS/3 ML INSULN.PEN. SQ SCH ×3 (08:00→17:22)
--- NOTE | 2018-03-07 08:57 | PDOC ---
PROGRESS NOTES Chief Complaint Chief Complaint Fever sepsis, recent UTI MEtatarsal foot fx - ok to WBAT RAJAN, vmn possibly on CKD stage 3 History of Present Illness History of Present Illness In the potty MAXIMUM TEMPERATURE 100.4 Still feels weak and looks sickly PT assessment is still pending Creatinine 1.4, GFR 36 No leukocytosis Orthopedics note reviewed, okay to WBAT-but whitney; definitely benefit from physical therapy ID note reviewed, may DC if afebrile 24 hours, but still febrile, and patient looks weak and still doesn't feel well Plan: Follow cultures Continue IV abx per ID Await PT OT evaluation today Avoid nephrotoxins Seems a little bit tachypneic today - albuterol when necessary CXR? if not yet done Labs tmr Further conditions pending course Vitals Vitals Vital Signs Date Time Temp Pulse Resp B/P (MAP) Pulse Ox O2 Delivery O2 Flow Rate FiO2 03/07/18 07:48 95 Nasal Cannula 4.0 03/07/18 07:00 98.1 80 16 123/40 (67) 98.1 Physical Exam Physical Exam seen examined bedside lungs: clear cvs:s1s2 regular abd: soft, bs active ext; no edema neuro: alert and conversational neck: supple skin: warm erythema right foot General: Alert, Cooperative, No acute distress Lungs: Clear, Other Abdomen: Normal bowel sounds Extremities: No clubbing, Normal pulses, Other Skin: Other (redness to bilat LE, she reports as stable, not painful ) Labs LABS Laboratory Tests Test 03/06/18 10:50 03/06/18 16:33 03/06/18 20:23 03/07/18 04:30 Glucose (Fingerstick) 180 mg/dL (70-99) 115 mg/dL (70-99) 213 mg/dL (70-99) White Blood Count 7.9 x10^3/uL (4.0-11.0) Red Blood Count 3.74 x10^6/uL (3.50-5.40) Hemoglobin 11.3 g/dL (12.0-15.5) Hematocrit 33.1 % (36.0-47.0) Mean Corpuscular Volume 88 fL (79-100) Mean Corpuscular Hemoglobin 30 pg (25-35) Mean Corpuscular Hemoglobin Concent 34 g/dL (31-37) Red Cell Distribution Width 13.5 % (11.5-14.5) Platelet Count 148 x10^3/uL (140-400) Neutrophils (%) (Auto) 68 % (31-73) Lymphocytes (%) (Auto) 20 % (24-48) Monocytes (%) (Auto) 10 % (0-9) Eosinophils (%) (Auto) 3 % (0-3) Basophils (%) (Auto) 0 % (0-3) Neutrophils # (Auto) 5.4 x10^3uL (1.8-7.7) Lymphocytes # (Auto) 1.6 x10^3/uL (1.0-4.8) Monocytes # (Auto) 0.8 x10^3/uL (0.0-1.1) Eosinophils # (Auto) 0.2 x10^3/uL (0.0-0.7) Basophils # (Auto) 0.0 x10^3/uL (0.0-0.2) Sodium Level 140 mmol/L (136-145) Potassium Level 3.6 mmol/L (3.5-5.1) Chloride Level 106 mmol/L (98-107) Carbon Dioxide Level 27 mmol/L (21-32) Anion Gap 7 (6-14) Blood Urea Nitrogen 19 mg/dL (7-20) Creatinine 1.4 mg/dL (0.6-1.0) Estimated GFR (Cockcroft-Gault) 36.2 BUN/Creatinine Ratio 14 (6-20) Glucose Level 117 mg/dL (70-99) Calcium Level 8.6 mg/dL (8.5-10.1) Total Bilirubin 0.6 mg/dL (0.2-1.0) Aspartate Amino Transf (AST/SGOT) 19 U/L (15-37) Alanine Aminotransferase (ALT/SGPT) 16 U/L (14-59) Alkaline Phosphatase 65 U/L (46-116) Total Protein 6.3 g/dL (6.4-8.2) Albumin 2.6 g/dL (3.4-5.0) Albumin/Globulin Ratio 0.7 (1.0-1.7) Test 03/07/18 07:32 Glucose (Fingerstick) 135 mg/dL (70-99) Review of Systems Review of Systems Weak, feels sick, left foot hurts Assessment and Plan Assessmemt and Plan Problems Medical Problems: (1) Acute renal insufficiency Status: Acute (2) Sepsis secondary to UTI Status: Acute Comment Review of Relevant I have reviewed the following items nancy (where applicable) has been applied. Labs Laboratory Tests Test 03/05/18 13:20 03/05/18 14:12 03/05/18 16:23 03/05/18 19:36 White Blood Count 19.9 x10^3/uL (4.0-11.0) Red Blood Count 4.12 x10^6/uL (3.50-5.40) Hemoglobin 12.2 g/dL (12.0-15.5) Hematocrit 36.0 % (36.0-47.0) Mean Corpuscular Volume 87 fL (79-100) Mean Corpuscular Hemoglobin 30 pg (25-35) Mean Corpuscular Hemoglobin Concent 34 g/dL (31-37) Red Cell Distribution Width 13.5 % (11.5-14.5) Platelet Count 158 x10^3/uL (140-400) Neutrophils (%) (Auto) 89 % (31-73) Lymphocytes (%) (Auto) 5 % (24-48) Monocytes (%) (Auto) 4 % (0-9) Eosinophils (%) (Auto) 0 % (0-3) Basophils (%) (Auto) 1 % (0-3) Neutrophils # (Auto) 17.8 x10^3uL (1.8-7.7) Lymphocytes # (Auto) 1.1 x10^3/uL (1.0-4.8) Monocytes # (Auto) 0.8 x10^3/uL (0.0-1.1) Eosinophils # (Auto) 0.0 x10^3/uL (0.0-0.7) Basophils # (Auto) 0.2 x10^3/uL (0.0-0.2) Segmented Neutrophils % 80 % (35-66) Band Neutrophils % 11 % (0-9) Lymphocytes % 6 % (24-48) Monocytes % 3 % (0-10) Platelet Estimate Adequate (ADEQUATE) Sodium Level 136 mmol/L (136-145) Potassium Level 4.3 mmol/L (3.5-5.1) Chloride Level 100 mmol/L (98-107) Carbon Dioxide Level 27 mmol/L (21-32) Anion Gap 9 (6-14) Blood Urea Nitrogen 23 mg/dL (7-20) Creatinine 1.4 mg/dL (0.6-1.0) Estimated GFR (Cockcroft-Gault) 36.2 BUN/Creatinine Ratio 16 (6-20) Glucose Level 152 mg/dL (70-99) Lactic Acid Level 1.7 mmol/L (0.4-2.0) Calcium Level 9.4 mg/dL (8.5-10.1) Total Bilirubin 1.0 mg/dL (0.2-1.0) Aspartate Amino Transf (AST/SGOT) 15 U/L (15-37) Alanine Aminotransferase (ALT/SGPT) 21 U/L (14-59) Alkaline Phosphatase 78 U/L (46-116) Total Protein 7.1 g/dL (6.4-8.2) Albumin 3.5 g/dL (3.4-5.0) Albumin/Globulin Ratio 1.0 (1.0-1.7) Urine Collection Type U cath Urine Color Yellow Urine Clarity Clear Urine pH 7.5 Urine Specific [place] 1.010 Urine Protein Negative mg/dL (NEG-TRACE) Urine Glucose (UA) Negative mg/dL (NEG) Urine Ketones (Stick) Negative mg/dL (NEG) Urine Blood Negative (NEG) Urine Nitrite Negative (NEG) Urine Bilirubin Negative (NEG) Urine Urobilinogen Dipstick 0.2 mg/dL (0.2 mg/dL) Urine Leukocyte Esterase Negative (NEG) Urine RBC Rare /HPF (0-2) Urine WBC Occ /HPF (0-4) Urine Squamous Epithelial Cells Mod /LPF Urine Bacteria 0 /HPF (0-FEW) Glucose (Fingerstick) 137 mg/dL (70-99) 138 mg/dL (70-99) Test 03/06/18 04:50 03/06/18 07:52 03/06/18 10:50 03/06/18 16:33 White Blood Count 12.3 x10^3/uL (4.0-11.0) Red Blood Count 3.76 x10^6/uL (3.50-5.40) Hemoglobin 11.2 g/dL (12.0-15.5) Hematocrit 32.9 % (36.0-47.0) Mean Corpuscular Volume 88 fL (79-100) Mean Corpuscular Hemoglobin 30 pg (25-35) Mean Corpuscular Hemoglobin Concent 34 g/dL (31-37) Red Cell Distribution Width 13.6 % (11.5-14.5) Platelet Count 145 x10^3/uL (140-400) Neutrophils (%) (Auto) 85 % (31-73) Lymphocytes (%) (Auto) 9 % (24-48) Monocytes (%) (Auto) 5 % (0-9) Eosinophils (%) (Auto) 1 % (0-3) Basophils (%) (Auto) 0 % (0-3) Neutrophils # (Auto) 10.5 x10^3uL (1.8-7.7) Lymphocytes # (Auto) 1.1 x10^3/uL (1.0-4.8) Monocytes # (Auto) 0.6 x10^3/uL (0.0-1.1) Eosinophils # (Auto) 0.1 x10^3/uL (0.0-0.7) Basophils # (Auto) 0.0 x10^3/uL (0.0-0.2) Sodium Level 139 mmol/L (136-145) Potassium Level 4.0 mmol/L (3.5-5.1) Chloride Level 106 mmol/L (98-107) Carbon Dioxide Level 22 mmol/L (21-32) Anion Gap 11 (6-14) Blood Urea Nitrogen 16 mg/dL (7-20) Creatinine 1.2 mg/dL (0.6-1.0) Estimated GFR (Cockcroft-Gault) 43.2 BUN/Creatinine Ratio 13 (6-20) Glucose Level 133 mg/dL (70-99) Calcium Level 8.9 mg/dL (8.5-10.1) Total Bilirubin 0.7 mg/dL (0.2-1.0) Aspartate Amino Transf (AST/SGOT) 16 U/L (15-37) Alanine Aminotransferase (ALT/SGPT) 16 U/L (14-59) Alkaline Phosphatase 64 U/L (46-116) Total Protein 6.1 g/dL (6.4-8.2) Albumin 2.8 g/dL (3.4-5.0) Albumin/Globulin Ratio 0.8 (1.0-1.7) Procalcitonin 0.25 ng/mL (0.00-0.10) Glucose (Fingerstick) 115 mg/dL (70-99) 180 mg/dL (70-99) 115 mg/dL (70-99) Test 03/06/18 20:23 03/07/18 04:30 03/07/18 07:32 Glucose (Fingerstick) 213 mg/dL (70-99) 135 mg/dL (70-99) White Blood Count 7.9 x10^3/uL (4.0-11.0) Red Blood Count 3.74 x10^6/uL (3.50-5.40) Hemoglobin 11.3 g/dL (12.0-15.5) Hematocrit 33.1 % (36.0-47.0) Mean Corpuscular Volume 88 fL (79-100) Mean Corpuscular Hemoglobin 30 pg (25-35) Mean Corpuscular Hemoglobin Concent 34 g/dL (31-37) Red Cell Distribution Width 13.5 % (11.5-14.5) Platelet Count 148 x10^3/uL (140-400) Neutrophils (%) (Auto) 68 % (31-73) Lymphocytes (%) (Auto) 20 % (24-48) Monocytes (%) (Auto) 10 % (0-9) Eosinophils (%) (Auto) 3 % (0-3) Basophils (%) (Auto) 0 % (0-3) Neutrophils # (Auto) 5.4 x10^3uL (1.8-7.7) Lymphocytes # (Auto) 1.6 x10^3/uL (1.0-4.8) Monocytes # (Auto) 0.8 x10^3/uL (0.0-1.1) Eosinophils # (Auto) 0.2 x10^3/uL (0.0-0.7) Basophils # (Auto) 0.0 x10^3/uL (0.0-0.2) Sodium Level 140 mmol/L (136-145) Potassium Level 3.6 mmol/L (3.5-5.1) Chloride Level 106 mmol/L (98-107) Carbon Dioxide Level 27 mmol/L (21-32) Anion Gap 7 (6-14) Blood Urea Nitrogen 19 mg/dL (7-20) Creatinine 1.4 mg/dL (0.6-1.0) Estimated GFR (Cockcroft-Gault) 36.2 BUN/Creatinine Ratio 14 (6-20) Glucose Level 117 mg/dL (70-99) Calcium Level 8.6 mg/dL (8.5-10.1) Total Bilirubin 0.6 mg/dL (0.2-1.0) Aspartate Amino Transf (AST/SGOT) 19 U/L (15-37) Alanine Aminotransferase (ALT/SGPT) 16 U/L (14-59) Alkaline Phosphatase 65 U/L (46-116) Total Protein 6.3 g/dL (6.4-8.2) Albumin 2.6 g/dL (3.4-5.0) Albumin/Globulin Ratio 0.7 (1.0-1.7) Laboratory Tests Test 03/06/18 10:50 03/06/18 16:33 03/06/18 20:23 03/07/18 04:30 Glucose (Fingerstick) 180 mg/dL (70-99) 115 mg/dL (70-99) 213 mg/dL (70-99) White Blood Count 7.9 x10^3/uL (4.0-11.0) Red Blood Count 3.74 x10^6/uL (3.50-5.40) Hemoglobin 11.3 g/dL (12.0-15.5) Hematocrit 33.1 % (36.0-47.0) Mean Corpuscular Volume 88 fL (79-100) Mean Corpuscular Hemoglobin 30 pg (25-35) Mean Corpuscular Hemoglobin Concent 34 g/dL (31-37) Red Cell Distribution Width 13.5 % (11.5-14.5) Platelet Count 148 x10^3/uL (140-400) Neutrophils (%) (Auto) 68 % (31-73) Lymphocytes (%) (Auto) 20 % (24-48) Monocytes (%) (Auto) 10 % (0-9) Eosinophils (%) (Auto) 3 % (0-3) Basophils (%) (Auto) 0 % (0-3) Neutrophils # (Auto) 5.4 x10^3uL (1.8-7.7) Lymphocytes # (Auto) 1.6 x10^3/uL (1.0-4.8) Monocytes # (Auto) 0.8 x10^3/uL (0.0-1.1) Eosinophils # (Auto) 0.2 x10^3/uL (0.0-0.7) Basophils # (Auto) 0.0 x10^3/uL (0.0-0.2) Sodium Level 140 mmol/L (136-145) Potassium Level 3.6 mmol/L (3.5-5.1) Chloride Level 106 mmol/L (98-107) Carbon Dioxide Level 27 mmol/L (21-32) Anion Gap 7 (6-14) Blood Urea Nitrogen 19 mg/dL (7-20) Creatinine 1.4 mg/dL (0.6-1.0) Estimated GFR (Cockcroft-Gault) 36.2 BUN/Creatinine Ratio 14 (6-20) Glucose Level 117 mg/dL (70-99) Calcium Level 8.6 mg/dL (8.5-10.1) Total Bilirubin 0.6 mg/dL (0.2-1.0) Aspartate Amino Transf (AST/SGOT) 19 U/L (15-37) Alanine Aminotransferase (ALT/SGPT) 16 U/L (14-59) Alkaline Phosphatase 65 U/L (46-116) Total Protein 6.3 g/dL (6.4-8.2) Albumin 2.6 g/dL (3.4-5.0) Albumin/Globulin Ratio 0.7 (1.0-1.7) Test 03/07/18 07:32 Glucose (Fingerstick) 135 mg/dL (70-99) Microbiology 03/05/18 Blood Culture - Preliminary, Resulted NO GROWTH AFTER 1 DAY Medications Current Medications Sodium Chloride 1,000 ml @ 1,000 mls/hr Q1H IV Last administered on 03/05/18at 13:26; Start 03/05/18 at 12:43; Stop 03/05/18 at 13:42; Status DC Acetaminophen (Tylenol) 1,000 mg 1X ONCE PO Last administered on 03/05/18at 14: 27; Start 03/05/18 at 14:00; Stop 03/05/18 at 14:01; Status DC Ceftriaxone Sodium 50 ml @ 100 mls/hr 1X ONCE IV Last administered on 14:27; Start 03/05/18 at 14:00; Stop 03/05/18 at 14:29; Status DC Ceftriaxone Sodium (Rocephin) 1 gm Q24H IVP Last administered on 03/06/18 14: 00; Start 03/06/18 at 14:00 Sodium Chloride 1,000 ml @ 150 mls/hr Q6H40M IV Last administered on 04:54; Start 03/05/18 at 15:00; Stop 03/06/18 at 12:04; Status DC Amlodipine Besylate (Norvasc) 2.5 mg DAILY PO Last administered on 03/06/18 08 :48; Start 03/05/18 at 18:30 Aspirin (Children'S Aspirin) 81 mg DAILY PO Last administered on 03/06/18 08: 47; Start 03/06/18 at 09:00 Carvedilol (Coreg) 6.25 mg BIDWMEALS PO Last administered on 03/06/18 17:20; Start 03/05/18 at 18:30 Citalopram Hydrobromide (CeleXA) 40 mg DAILY PO Last administered on 03/06/18 08:47; Start 03/06/18 at 09:00 Duloxetine HCl (Cymbalta) 20 mg DAILY PO Last administered on 03/06/18 08:47; Start 03/06/18 at 09:00 Furosemide (Lasix) 40 mg QODAY PO ; Start 03/07/18 at 09:00 Lisinopril (Prinivil) 20 mg DAILY PO Last administered on 03/06/18 08:47; Start 03/05/18 at 18:30 Lorazepam (Ativan) 0.5 mg BID PO Last administered on 03/06/18 19:56; Start at 21:00 Glimepiride (Amaryl) 0.5 mg DAILY PO Last administered on 03/06/18 08:47; Start 03/06/18 at 09:00 Insulin Glargine (Lantus) 18 units QHS SQ Last administered on 03/06/18 20:34 ; Start 03/05/18 at 21:00 Famotidine (Pepcid) 20 mg BID PO Last administered on 03/06/18 19:57; Start at 21:00 Simvastatin (Zocor) 5 mg QHS PO Last administered on 03/06/18 19:56; Start at 21:00 Insulin Human Lispro (HumaLOG) 0-7 UNITS TIDWMEALS SQ Last administered on 03/06at 12:06; Start 03/06/18 at 08:00 Dextrose (Dextrose 50%-Water Syringe) 12.5 gm PRN Q15MIN PRN IV SEE COMMENTS; Start 03/05/18 at 18:15 Furosemide (Lasix) 40 mg 1X ONCE IVP Last administered on 03/06/18at 14:00; Start 03/06/18 at 13:30; Stop 03/06/18 at 13:31; Status DC Tramadol HCl (Ultram) 50 mg PRN Q6HRS PRN PO PAIN Last administered on 19:57; Start 03/06/18 at 12:45 Lactobacillus Rhamnosus (Culturelle) 1 cap BID PO Last administered on 19:57; Start 03/06/18 at 21:00 Alprazolam (Xanax) 0.25 mg 1X ONCE PO Last administered on 03/06/18at 17:19; Start 03/06/18 at 17:00; Stop 03/06/18 at 17:01; Status DC Albuterol Sulfate (Ventolin Neb Soln) 2.5 mg RTQID NEB Last administered on at 07:46; Start 03/06/18 at 17:30 Acetaminophen (Tylenol) 500 mg PRN Q6HRS PRN PO MILD PAIN / TEMP; Start at 19:30 Acetaminophen (Tylenol) 650 mg 1X ONCE PO Last administered on 03/06/18 19:56 ; Start 03/06/18 at 19:30; Stop 03/06/18 at 19:31; Status DC Active Scripts Active Reported Cymbalta (Duloxetine Hcl) 20 Mg Capsule.dr 20 Mg PO DAILY Lisinopril 20 Mg Tablet 1 Tab PO DAILY Furosemide 40 Mg Tablet 1 Tab PO QODAY Amlodipine Besylate 5 Mg Tablet 2.5 Mg PO DAILY Glimepiride 1 Mg Tablet 0.5 Mg PO DAILY Lantus (Insulin Glargine,Hum.rec.anlog) 100 Unit/1 Ml Vial 18 Unit SQ QHS Citalopram Hbr (Citalopram Hydrobromide) 20 Mg Tablet 40 Mg PO DAILY Lawrence Chewable (Aspirin) 81 Mg Tab.chew 81 Mg PO Fish Oil (Charlotte-3 Fatty Acids) 500 Mg Capsule.dr 3,600 Mg PO Women's One Daily (Multivit With Calcium,Iron,Min) 1 Each Tablet 1 Each PO Pravastatin Sodium 40 Mg Tablet 40 Mg PO Carvedilol 12.5 Mg Tablet 6.25 Mg PO BID Ranitidine Hcl 300 Mg Capsule 300 Mg PO BID Lorazepam 0.5 Mg Tablet 0.5 Mg PO BID MDD 1mg Vitals/I & O Vital Sign - Last 24 Hours 03/06/18 03/06/18 03/06/18 03/06/18 09:03 11:45 15:58 17:20 Temp 99.3 100.0 99.3 100.0 Pulse 91 82 88 88 Resp 16 16 B/P (MAP) 135/51 119/42 (67) 171/64 (99) 171/64 Pulse Ox 94 88 O2 Delivery Room Air Room Air 03/06/18 03/06/18 03/06/18 03/06/18 19:10 19:50 19:57 20:00 Temp 100.4 100.4 Pulse 80 B/P (MAP) 140/50 (80) Pulse Ox 90 92 O2 Delivery Nasal Cannula Nasal Cannula Nasal Cannula Nasal Cannula O2 Flow Rate 3.0 4.0 3.0 3.0 03/06/18 03/06/18 03/07/18 03/07/18 20:57 23:15 01:44 07:00 Temp 98.7 97.9 98.1 98.7 97.9 98.1 Pulse 67 80 Resp 12 16 B/P (MAP) 120/41 (67) 123/40 (67) Pulse Ox 92 92 94 91 O2 Delivery Nasal Cannula Nasal Cannula Nasal Cannula Room Air O2 Flow Rate 3.0 3.0 3.0 03/07/18 07:48 Pulse Ox 95 O2 Delivery Nasal Cannula O2 Flow Rate 4.0 Intake and Output 03/06/18 03/06/18 03/07/18 15:00 23:00 07:00 Intake Total 1000 ml Output Total 1 ml Balance 999 ml CARI RASCON MD Mar 07, 2018 08:57
[2018-03-07] MEDS ORDERED: FUROSEMIDE 40 MG TABLET. PO SCH (09:00)
[2018-03-07] MEDS: amLODIPine BESYLATE 2.5 MG TABLET PO SCH (09:21)
[2018-03-07] MEDS: CITALOPRAM 20 MG TABLET. PO SCH (09:21)
[2018-03-07] MEDS: LORazepam 0.5 MG TABLET PO SCH ×2 (09:21→20:27)
[2018-03-07] MEDS: FAMOTIDINE 20 MG TABLET. PO SCH ×2 (09:21→20:28)
[2018-03-07] MEDS: ASPIRIN CHEWABLE 81 MG TABLET. PO SCH (09:22)
[2018-03-07] MEDS: DULoxetine HCL 20 MG CAPSULE.DR PO SCH (09:22)
[2018-03-07] MEDS: LISINOPRIL 20 MG TABLET PO SCH (09:22)
[2018-03-07] MEDS: LACTOBACILLUS RHAMNOSUS GG 1 CAPSULE. PO SCH ×2 (09:22→20:27)
[2018-03-07] MEDS: GLIMEPIRIDE 2 MG TABLET. PO SCH (09:22)
[2018-03-07] MEDS: CARVEDILOL 6.25 MG TABLET. PO SCH ×2 (09:22→17:13)
--- NOTE | 2018-03-07 10:09 | PDOC ---
Infectious Disease Note Subjective Subjective Feeling better this morning Comfortable, denies pain Appetite good [id number] ROS ROS per HPI otherwise negative Vital Sign Vital Signs Vital Signs Date Time Temp Pulse Resp B/P (MAP) Pulse Ox O2 Delivery O2 Flow Rate FiO2 03/07/18 09:22 80 123/40 03/07/18 07:48 95 Nasal Cannula 4.0 03/07/18 07:00 98.1 16 98.1 Physical Exam PHYSICAL EXAM GENERAL: Propped up in bed, trying to call her on cell phone HENT: Oral cavity dry, dentures LUNGS: Clear CV: S 1S2 ABD: Soft, NT, BS + EXT: No edema or cyanosis. Nontender, no redness of legs SKIN: warm without rash [employer]: Alert and oriented x 3. PIV Labs Lab Laboratory Tests Test 03/06/18 10:50 03/06/18 16:33 03/06/18 20:23 03/07/18 04:30 Glucose (Fingerstick) 180 mg/dL (70-99) 115 mg/dL (70-99) 213 mg/dL (70-99) White Blood Count 7.9 x10^3/uL (4.0-11.0) Red Blood Count 3.74 x10^6/uL (3.50-5.40) Hemoglobin 11.3 g/dL (12.0-15.5) Hematocrit 33.1 % (36.0-47.0) Mean Corpuscular Volume 88 fL (79-100) Mean Corpuscular Hemoglobin 30 pg (25-35) Mean Corpuscular Hemoglobin Concent 34 g/dL (31-37) Red Cell Distribution Width 13.5 % (11.5-14.5) Platelet Count 148 x10^3/uL (140-400) Neutrophils (%) (Auto) 68 % (31-73) Lymphocytes (%) (Auto) 20 % (24-48) Monocytes (%) (Auto) 10 % (0-9) Eosinophils (%) (Auto) 3 % (0-3) Basophils (%) (Auto) 0 % (0-3) Neutrophils # (Auto) 5.4 x10^3uL (1.8-7.7) Lymphocytes # (Auto) 1.6 x10^3/uL (1.0-4.8) Monocytes # (Auto) 0.8 x10^3/uL (0.0-1.1) Eosinophils # (Auto) 0.2 x10^3/uL (0.0-0.7) Basophils # (Auto) 0.0 x10^3/uL (0.0-0.2) Sodium Level 140 mmol/L (136-145) Potassium Level 3.6 mmol/L (3.5-5.1) Chloride Level 106 mmol/L (98-107) Carbon Dioxide Level 27 mmol/L (21-32) Anion Gap 7 (6-14) Blood Urea Nitrogen 19 mg/dL (7-20) Creatinine 1.4 mg/dL (0.6-1.0) Estimated GFR (Cockcroft-Gault) 36.2 BUN/Creatinine Ratio 14 (6-20) Glucose Level 117 mg/dL (70-99) Calcium Level 8.6 mg/dL (8.5-10.1) Total Bilirubin 0.6 mg/dL (0.2-1.0) Aspartate Amino Transf (AST/SGOT) 19 U/L (15-37) Alanine Aminotransferase (ALT/SGPT) 16 U/L (14-59) Alkaline Phosphatase 65 U/L (46-116) Total Protein 6.3 g/dL (6.4-8.2) Albumin 2.6 g/dL (3.4-5.0) Albumin/Globulin Ratio 0.7 (1.0-1.7) Test 03/07/18 07:32 Glucose (Fingerstick) 135 mg/dL (70-99) IMPRESSION: 1. Nondisplaced, incompletely healed proximal second metatarsal fracture. 2. Healed proximal fifth metatarsal fracture. Micro Microbiology 03/05/18 Blood Culture - Preliminary, Resulted NO GROWTH AFTER 1 DAY Objective Assessment Fever, most likely to be viral, Leg redness resolved Recent "urinary tract infection." Recent right foot fracture, she says. Leukocytosis - improved Plan Plan of Care ceftriaxone x ray rt foot Attending Co-Sign The patient was seen and interviewed as well as examined at the bedside. The chart was reviewed. The case was discussed. Agree with the plan of care. ZAKI KRAMER APRN Mar 07, 2018 10:09 LAURITA PATTERSON MD Mar 07, 2018 15:53
[2018-03-07 11:19] VITALS: BP 155/54
--- NOTE | 2018-03-07 11:24 | CONS ---
DATE OF CONSULTATION: ATTENDING PHYSICIAN: Dr. Craig. REASON FOR CONSULTATION: Sepsis. HISTORY OF PRESENT ILLNESS: The patient is an 82-year-old female who was not feeling at home. She presented with some nausea, vomiting and fever. She went to urgent care a few days ago and was diagnosed with UTI and penicillin was given. She then started vomiting again and we changed the antibiotics and then, she was unable to keep things down. As a result, she was hospitalized. She had a white cell count of 19,000. She had a fever of 100.4. She said she had some shortness of breath on arrival. She has no cough. No chest pains. She is feeling better now today. She is requiring 3 liters of oxygen. Her chest x-ray showed prominent interstitial markings, but no definite consolidation seen. Her CT abdomen and pelvis done on 03/05/2018 with lower sections of the lungs do not show any interstitial markings of fibrosis. The patient's urine cultures grew Enterobacter cloacae and she is on antibiotics. Infectious Disease is also following. PAST MEDICAL HISTORY: Significant for coronary artery disease, diabetes, hypertension, hyperlipidemia, renal insufficiency, history of arrhythmia. PAST SURGICAL HISTORY: Hysterectomy and cardiac stenting. SOCIAL HISTORY: Negative for smoking. No alcohol or illicit use. ALLERGIES: PENICILLIN AND CODEINE. REVIEW OF SYSTEMS: As per history of present illness. A 12-point systems obtained. Pertinent positives discussed as above, otherwise noncontributory. MEDICATIONS: All reviewed as listed in the MRAD including antibiotics per Infectious Disease. PHYSICAL EXAMINATION: GENERAL: She is awake, following commands. VITAL SIGNS: Now better. She is afebrile. T-max was 100.4 yesterday. Pulse ox is 95% on 2 liters now. She was on 4 liters. HEENT: Sclerae nonicteric. NECK: Supple. LUNGS: Diminished breath sounds. No crackles. CARDIOVASCULAR: Regular rate and rhythm. ABDOMEN: Soft. EXTREMITIES: With no pitting edema. LABORATORY DATA: Reviewed. White cell count now down to 7.9 from 19.9, hemoglobin 11.3 and platelets are 148. BUN and creatinine is 19 and 1.4. IMPRESSION: 1. Sepsis, present on admission related to urinary tract infection. 2. Enterobacter cloacae urinary tract infection. 3. Abnormal chest x-ray with slightly prominent interstitial markings. Clinically, less likely congestive heart failure and less likely pulmonary fibrosis as a CT abdomen and pelvis with lower sections of the lung did not show any fibrotic changes. I will follow up another chest x-ray in next 24 hours. 5. No significant history of tobacco use. RECOMMENDATIONS: 1. Continue with present antibiotics per Infectious Disease. 2. Follow up chest x-ray. 3. Wean oxygen gradually down keeping saturation 92% and above. 4. P.r.n. bronchodilators. 5. Continue diuresis per PCP. NIKOLAI ROSADO MD DR: JAN/guido JOB#: [id number] / [id number]
[2018-03-07 15:00] VITALS: BP 142/56
[2018-03-07] MEDS: cefTRIAXone IV Push 1 GM VIAL. IVP SCH (17:13)
[2018-03-07 19:00] VITALS: BP 151/97
[2018-03-07] MEDS: SIMVASTATIN 5 MG TABLET. PO SCH (20:27)
[2018-03-07] MEDS: traMADol 50 MG TABLET PO PRN (20:28)
[2018-03-07] MEDS: INSULIN GLARGINE 300 UNITS/3 ML INSULN.PEN. SQ SCH (20:34)
[2018-03-07 23:00] VITALS: BP 144/57
[2018-03-08 03:00] VITALS: BP 134/50
[2018-03-08 05:28] LABS: BASO % 0 % (0-3); EOS # 0.2 x10^3/uL (0.0-0.7); EOS % 3 % (0-3); HEMATOCRIT 33.9 % (36.0-47.0); HEMOGLOBIN 11.6 g/dL (12.0-15.5); LYMPH # 1.4 x10^3/uL (1.0-4.8); LYMPH % 19 % (24-48); MEAN CORPUSCULAR HEMOGLOBIN 30 pg (25-35); MEAN CORPUSCULAR HGB CONC 34 g/dL (31-37); MEAN CORPUSCULAR VOLUME 87 fL (79-100); MONO # 0.7 x10^3/uL (0.0-1.1); MONO % 9 % (0-9); NEUT # 5.4 x10^3uL (1.8-7.7); NEUT % 70 % (31-73); PLATELET COUNT 166 x10^3/uL (140-400); RED BLOOD COUNT 3.88 x10^6/uL (3.50-5.40); RED CELL DISTRIBUTION WIDTH 13.5 % (11.5-14.5); WHITE BLOOD COUNT 7.7 x10^3/uL (4.0-11.0)
[2018-03-08 06:06] LABS: CALCIUM 9.1 mg/dL (8.5-10.1); CREATININE 1.3 mg/dL (0.6-1.0); GFR 39.4; POTASSIUM 3.9 mmol/L (3.5-5.1)
[2018-03-08 07:00] VITALS: BP 161/65
--- NOTE | 2018-03-08 07:32 | PDOC ---
Infectious Disease Note Subjective Subjective Feeling good this morning Comfortable, denies pain Appetite good LUISA MORAN wants to go home says no n/v/d/sob Vital Sign Vital Signs Vital Signs Date Time Temp Pulse Resp B/P (MAP) Pulse Ox O2 Delivery O2 Flow Rate FiO2 03/08/18 03:00 98.0 86 18 134/50 (78) 96 Room Air 98.0 03/07/18 11:51 2.0 Physical Exam PHYSICAL EXAM GENERAL: Propped up in bed, trying to call her on cell phone HENT: Oral cavity dry, dentures LUNGS: Clear CV: S 1S2 ABD: Soft, NT, BS + EXT: No edema or cyanosis. 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 PIV Labs Lab Laboratory Tests Test 03/07/18 07:32 03/07/18 10:40 03/07/18 16:27 03/07/18 20:33 Glucose (Fingerstick) 135 mg/dL (70-99) 175 mg/dL (70-99) 166 mg/dL (70-99) 103 mg/dL (70-99) Test 03/08/18 04:30 White Blood Count 7.7 x10^3/uL (4.0-11.0) Red Blood Count 3.88 x10^6/uL (3.50-5.40) Hemoglobin 11.6 g/dL (12.0-15.5) Hematocrit 33.9 % (36.0-47.0) Mean Corpuscular Volume 87 fL (79-100) Mean Corpuscular Hemoglobin 30 pg (25-35) Mean Corpuscular Hemoglobin Concent 34 g/dL (31-37) Red Cell Distribution Width 13.5 % (11.5-14.5) Platelet Count 166 x10^3/uL (140-400) Neutrophils (%) (Auto) 70 % (31-73) Lymphocytes (%) (Auto) 19 % (24-48) Monocytes (%) (Auto) 9 % (0-9) Eosinophils (%) (Auto) 3 % (0-3) Basophils (%) (Auto) 0 % (0-3) Neutrophils # (Auto) 5.4 x10^3uL (1.8-7.7) Lymphocytes # (Auto) 1.4 x10^3/uL (1.0-4.8) Monocytes # (Auto) 0.7 x10^3/uL (0.0-1.1) Eosinophils # (Auto) 0.2 x10^3/uL (0.0-0.7) Basophils # (Auto) 0.0 x10^3/uL (0.0-0.2) Sodium Level 139 mmol/L (136-145) Potassium Level 3.9 mmol/L (3.5-5.1) Chloride Level 104 mmol/L (98-107) Carbon Dioxide Level 25 mmol/L (21-32) Anion Gap 10 (6-14) Blood Urea Nitrogen 20 mg/dL (7-20) Creatinine 1.3 mg/dL (0.6-1.0) Estimated GFR (Cockcroft-Gault) 39.4 Glucose Level 149 mg/dL (70-99) Calcium Level 9.1 mg/dL (8.5-10.1) Micro Microbiology 03/05/18 Blood Culture - Preliminary, Resulted NO GROWTH AFTER 2 DAYS Objective Assessment Fever Rt leg cellulitis ? Rt foot recent fracture Recent UTI per history Leukocytosis Plan Plan of Care d/c rocephine d/c home ok if remains afebrile LAURITA PATTERSON MD Mar 08, 2018 07:32
[2018-03-08] MEDS: ALBUTEROL SULFATE 2.5 MG/3 ML NEBU. NEB SCH ×2 (07:37→11:51)
[2018-03-08] MEDS: INSULIN LISPRO 300 UNITS/3 ML INSULN.PEN. SQ SCH ×2 (07:56→12:07)
[2018-03-08] MEDS: LORazepam 0.5 MG TABLET PO SCH (08:23)
[2018-03-08] MEDS: DULoxetine HCL 20 MG CAPSULE.DR PO SCH (08:23)
[2018-03-08] MEDS: LACTOBACILLUS RHAMNOSUS GG 1 CAPSULE. PO SCH (08:23)
[2018-03-08] MEDS: ASPIRIN CHEWABLE 81 MG TABLET. PO SCH (08:23)
[2018-03-08] MEDS: CARVEDILOL 6.25 MG TABLET. PO SCH (08:24)
[2018-03-08] MEDS: GLIMEPIRIDE 2 MG TABLET. PO SCH (08:24)
[2018-03-08] MEDS: CITALOPRAM 20 MG TABLET. PO SCH (08:24)
[2018-03-08] MEDS: FAMOTIDINE 20 MG TABLET. PO SCH (08:24)
[2018-03-08] MEDS: LISINOPRIL 20 MG TABLET PO SCH (08:25)
[2018-03-08] MEDS: amLODIPine BESYLATE 2.5 MG TABLET PO SCH (08:26)
--- NOTE | 2018-03-08 08:28 | RAD ---
EXAM: Chest, single view. HISTORY: Shortness of breath. COMPARISON: 03/06/2018 FINDINGS: A frontal view of the chest is obtained. There is stable coarse diffuse increased interstitial opacity. There is no pleural effusion. There is no pneumothorax. There is stable enlargement of the cardiac silhouette, a component of which is due to portable technique. IMPRESSION: 1. Stable coarse diffuse increased interstitial opacity due to interstitial infiltrate or chronic interstitial lung disease. 2. Stable prominent cardiac silhouette. Electronically signed by: Zulma Gamez MD (03/08/2018 8:25 AM) [facility]
--- NOTE | 2018-03-08 10:11 | PDOC3 ---
Discharge Summary Visit Information Date of Admission: Mar 05, 2018 Date of Discharge: Mar 08, 2018 Admitting Diagnosis Comment: Viral syndrome No evidence of UTI Fevers, resolved Metatarsal fracture on special boot, nonsurgical Insomnia-helped by tramadol Final Diagnosis Problems Medical Problems: (1) Acute renal insufficiency Status: Acute (2) Sepsis secondary to UTI Status: Acute Brief Hospital Course Allergies Allergies Coded Allergies Type Severity Reaction Last Updated Verified Penicillins Allergy Intermediate GI 03/05/18 Yes codeine Adverse Reaction Intermediate nausea 02/01/16 Yes Vital Signs Vital Signs Date Time Temp Pulse Resp B/P (MAP) Pulse Ox O2 Delivery O2 Flow Rate FiO2 03/08/18 08:26 90 161/65 03/08/18 08:00 Room Air 03/08/18 07:40 93 03/08/18 07:00 98.2 18 98.2 03/07/18 11:51 2.0 Lab Results Laboratory Tests Test 03/06/18 10:50 03/06/18 16:33 03/06/18 20:23 03/07/18 04:30 Glucose (Fingerstick) 180 mg/dL (70-99) 115 mg/dL (70-99) 213 mg/dL (70-99) White Blood Count 7.9 x10^3/uL (4.0-11.0) Red Blood Count 3.74 x10^6/uL (3.50-5.40) Hemoglobin 11.3 g/dL (12.0-15.5) Hematocrit 33.1 % (36.0-47.0) Mean Corpuscular Volume 88 fL (79-100) Mean Corpuscular Hemoglobin 30 pg (25-35) Mean Corpuscular Hemoglobin Concent 34 g/dL (31-37) Red Cell Distribution Width 13.5 % (11.5-14.5) Platelet Count 148 x10^3/uL (140-400) Neutrophils (%) (Auto) 68 % (31-73) Lymphocytes (%) (Auto) 20 % (24-48) Monocytes (%) (Auto) 10 % (0-9) Eosinophils (%) (Auto) 3 % (0-3) Basophils (%) (Auto) 0 % (0-3) Neutrophils # (Auto) 5.4 x10^3uL (1.8-7.7) Lymphocytes # (Auto) 1.6 x10^3/uL (1.0-4.8) Monocytes # (Auto) 0.8 x10^3/uL (0.0-1.1) Eosinophils # (Auto) 0.2 x10^3/uL (0.0-0.7) Basophils # (Auto) 0.0 x10^3/uL (0.0-0.2) Sodium Level 140 mmol/L (136-145) Potassium Level 3.6 mmol/L (3.5-5.1) Chloride Level 106 mmol/L (98-107) Carbon Dioxide Level 27 mmol/L (21-32) Anion Gap 7 (6-14) Blood Urea Nitrogen 19 mg/dL (7-20) Creatinine 1.4 mg/dL (0.6-1.0) Estimated GFR (Cockcroft-Gault) 36.2 BUN/Creatinine Ratio 14 (6-20) Glucose Level 117 mg/dL (70-99) Calcium Level 8.6 mg/dL (8.5-10.1) Total Bilirubin 0.6 mg/dL (0.2-1.0) Aspartate Amino Transf (AST/SGOT) 19 U/L (15-37) Alanine Aminotransferase (ALT/SGPT) 16 U/L (14-59) Alkaline Phosphatase 65 U/L (46-116) Total Protein 6.3 g/dL (6.4-8.2) Albumin 2.6 g/dL (3.4-5.0) Albumin/Globulin Ratio 0.7 (1.0-1.7) Test 03/07/18 07:32 03/07/18 10:40 03/07/18 16:27 03/07/18 20:33 Glucose (Fingerstick) 135 mg/dL (70-99) 175 mg/dL (70-99) 166 mg/dL (70-99) 103 mg/dL (70-99) Test 03/08/18 04:30 03/08/18 07:40 White Blood Count 7.7 x10^3/uL (4.0-11.0) Red Blood Count 3.88 x10^6/uL (3.50-5.40) Hemoglobin 11.6 g/dL (12.0-15.5) Hematocrit 33.9 % (36.0-47.0) Mean Corpuscular Volume 87 fL (79-100) Mean Corpuscular Hemoglobin 30 pg (25-35) Mean Corpuscular Hemoglobin Concent 34 g/dL (31-37) Red Cell Distribution Width 13.5 % (11.5-14.5) Platelet Count 166 x10^3/uL (140-400) Neutrophils (%) (Auto) 70 % (31-73) Lymphocytes (%) (Auto) 19 % (24-48) Monocytes (%) (Auto) 9 % (0-9) Eosinophils (%) (Auto) 3 % (0-3) Basophils (%) (Auto) 0 % (0-3) Neutrophils # (Auto) 5.4 x10^3uL (1.8-7.7) Lymphocytes # (Auto) 1.4 x10^3/uL (1.0-4.8) Monocytes # (Auto) 0.7 x10^3/uL (0.0-1.1) Eosinophils # (Auto) 0.2 x10^3/uL (0.0-0.7) Basophils # (Auto) 0.0 x10^3/uL (0.0-0.2) Sodium Level 139 mmol/L (136-145) Potassium Level 3.9 mmol/L (3.5-5.1) Chloride Level 104 mmol/L (98-107) Carbon Dioxide Level 25 mmol/L (21-32) Anion Gap 10 (6-14) Blood Urea Nitrogen 20 mg/dL (7-20) Creatinine 1.3 mg/dL (0.6-1.0) Estimated GFR (Cockcroft-Gault) 39.4 Glucose Level 149 mg/dL (70-99) Calcium Level 9.1 mg/dL (8.5-10.1) Glucose (Fingerstick) 143 mg/dL (70-99) Laboratory Tests Test 03/07/18 10:40 03/07/18 16:27 03/07/18 20:33 03/08/18 04:30 Glucose (Fingerstick) 175 mg/dL (70-99) 166 mg/dL (70-99) 103 mg/dL (70-99) White Blood Count 7.7 x10^3/uL (4.0-11.0) Red Blood Count 3.88 x10^6/uL (3.50-5.40) Hemoglobin 11.6 g/dL (12.0-15.5) Hematocrit 33.9 % (36.0-47.0) Mean Corpuscular Volume 87 fL (79-100) Mean Corpuscular Hemoglobin 30 pg (25-35) Mean Corpuscular Hemoglobin Concent 34 g/dL (31-37) Red Cell Distribution Width 13.5 % (11.5-14.5) Platelet Count 166 x10^3/uL (140-400) Neutrophils (%) (Auto) 70 % (31-73) Lymphocytes (%) (Auto) 19 % (24-48) Monocytes (%) (Auto) 9 % (0-9) Eosinophils (%) (Auto) 3 % (0-3) Basophils (%) (Auto) 0 % (0-3) Neutrophils # (Auto) 5.4 x10^3uL (1.8-7.7) Lymphocytes # (Auto) 1.4 x10^3/uL (1.0-4.8) Monocytes # (Auto) 0.7 x10^3/uL (0.0-1.1) Eosinophils # (Auto) 0.2 x10^3/uL (0.0-0.7) Basophils # (Auto) 0.0 x10^3/uL (0.0-0.2) Sodium Level 139 mmol/L (136-145) Potassium Level 3.9 mmol/L (3.5-5.1) Chloride Level 104 mmol/L (98-107) Carbon Dioxide Level 25 mmol/L (21-32) Anion Gap 10 (6-14) Blood Urea Nitrogen 20 mg/dL (7-20) Creatinine 1.3 mg/dL (0.6-1.0) Estimated GFR (Cockcroft-Gault) 39.4 Glucose Level 149 mg/dL (70-99) Calcium Level 9.1 mg/dL (8.5-10.1) Test 03/08/18 07:40 Glucose (Fingerstick) 143 mg/dL (70-99) Brief Hospital Course Ms. Fiore is a 82 old female who was admitted for change in MS and some fevers, thought initially to have UTI but this is not the case. Comanage with ID. She also has a metastatic fracture, consulted orthopedics, WBAT is okay, she can go home with help from her . No further PT needs. She has a special boot already. Course remarkable for some fevers but cultures etc. are all negative. No need for antibiotics. Needed some tramadol for insomnia which helped her sleep while she was here Consults performed orthopedics, infectious disease Procedures performed none Time discharging 31 minutes. 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 Information Condition at Discharge: Improved, Stable Disposition/Orders: D/C to Home Scheduled Amlodipine Besylate (Amlodipine Besylate) 5 Mg Tablet, 2.5 MG PO DAILY, ( Reported) Entered as Reported by: ANALIA TORRES on 03/13/167 Last Action: Continued on 03/05/181801 by LEONARDA VOGEL Carvedilol (Carvedilol) 12.5 Mg Tablet, 6.25 MG PO BID, (Reported) Entered as Reported by: TEDDY JUDGE on 09/13/13 0936 Last Action: Continued on 03/05/181801 by LEONARDA VOGEL Citalopram Hydrobromide (Citalopram Hbr) 20 Mg Tablet, 40 MG PO DAILY, (Reported ) Entered as Reported by: EMERSON MONTELONGO on 11/12/13 0620 Last Action: Continued on 03/05/181801 by LEONARDA VOGEL Duloxetine Hcl (Cymbalta) 20 Mg Capsule.dr, 20 MG PO DAILY, (Reported) Entered as Reported by: EDITH DOMINGUEZ on 11/25/17 0638 Last Action: Continued on 03/05/181801 by LEONARDA VOGEL Furosemide (Furosemide) 40 Mg Tablet, 1 TAB PO QODAY, #30 Ref 5 (Reported) Entered as Reported by: ANALIA TORRES on 03/13/16 1227 Last Action: Continued on 03/05/181801 by LEONARDA VOGEL Glimepiride (Glimepiride) 1 Mg Tablet, 0.5 MG PO DAILY, #30 Ref 5 (Reported) Entered as Reported by: SHAWANDA VILLAGRAN on 08/17/15 1619 Last Action: Converted on 03/05/181801 by LEONARDA VOGEL Insulin Glargine,Hum.rec.anlog (Lantus) 100 Unit/1 Ml Vial, 18 UNIT SQ QHS, ( Reported) Entered as Reported by: DENI RAFY on 01/04/151813 Last Action: Converted on 03/05/181801 by LEONARDA VOGEL Lisinopril (Lisinopril) 20 Mg Tablet, 1 TAB PO DAILY, #30 Ref 5 (Reported) Entered as Reported by: EDITH DOMINGUEZ on 11/25/1738 Last Action: Continued on 03/05/181801 by LEONARDA VOGEL Lorazepam (Lorazepam) 0.5 Mg Tablet, 0.5 MG PO BID for anxiety MDD 1mg, ( Reported) Entered as Reported by: TEDDY JUDGE on 09/13/13935 Last Action: Continued on 03/05/181801 by LEONARDA VOGEL Ranitidine Hcl (Ranitidine Hcl) 300 Mg Capsule, 300 MG PO BID, (Reported) Entered as Reported by: TEDDY JUDGE on 09/13/13935 Last Action: Converted on 03/05/181801 by LEONARDA VOGEL Miscellaneous Medications Aspirin (Lawrence Chewable) 81 Mg Tab.chew, 81 MG PO, (Reported) Entered as Reported by: TEDDY JUDGE on 09/13/13935 Last Action: Continued on 03/05/181801 by LEONARDA VOGEL Multivit With Calcium,Iron,Min (Women's One Daily) 1 Each Tablet, 1 EACH PO, ( Reported) Entered as Reported by: TEDDY JUDGE on 09/13/13935 Last Action: HELD on 03/05/181801 by LEONARDA VOGEL Avera-3 Fatty Acids (Fish Oil) 500 Mg Capsule.dr, 3,600 MG PO, (Reported) Entered as Reported by: TEDDY JUDGE on 09/13/13935 Last Action: HELD on 03/05/181801 by LEONARDA VOGEL Pravastatin Sodium (Pravastatin Sodium) 40 Mg Tablet, 40 MG PO, (Reported) Entered as Reported by: TEDDY JUDGE on 09/13/13935 Last Action: Converted on 03/05/181801 by LEONARDA VOGEL Discontinued Medications Alendronate Sodium (Alendronate Sodium) 70 Mg Tablet, 70 MG PO, (Reported) Entered as Reported by: TEDDY JUDGE on 09/13/13935 Last Action: Discontinued on 03/05/181653 by JERZY WESTON Amitriptyline Hcl (Amitriptyline Hcl) 25 Mg Tablet, 1 TAB PO QHS, #30 Ref 5 ( Reported) Entered as Reported by: ANALIA TORRES on 03/13/16 1227 Last Action: Discontinued on 03/05/181653 by JERZY WESTON Insulin Detemir (Levemir) 100 Unit/1 Ml Vial, 22 UNIT SQ QHS, (Reported) Entered as Reported by: ANALIA TORRES on 03/13/16 1223 Last Action: Discontinued on 03/05/181653 by JERZY WESTON Levofloxacin (Levaquin) 500 Mg Tablet, 1 TAB PO DAILY, #5 (Reported) Take one tablet by mouth Daily Entered as Reported by: MARVIN RIVERO on 08/19/15 1132 Last Action: Discontinued on 03/05/181653 by JERZY WESTON Triamcinolone Acetonide (Triamcinolone Acetonide 0.1% Cream) 15 Gm Cream..g., 1 TOMASZ TP DAILY, (Reported) Entered as Reported by: SHAWANDA VILLAGRAN on 08/17/15 1619 Last Action: Discontinued on 03/05/181653 by CARI CARMICHAEL MD Mar 08, 2018 10:11
[2018-03-08 11:00] VITALS: BP 134/57
--- NOTE | 2018-03-08 11:11 | PDOC ---
PULMONARY PROGRESS NOTES Subjective no soa Vitals Vital Signs Date Time Temp Pulse Resp B/P (MAP) Pulse Ox O2 Delivery O2 Flow Rate FiO2 03/08/18 08:26 90 161/65 03/08/18 08:00 Room Air 03/08/18 07:40 93 03/08/18 07:00 98.2 18 98.2 03/07/18 11:51 2.0 General: Alert, No acute distress Lungs: Clear Cardiovascular: S1 Abdomen: Soft Neuro Exam: Alert Extremities: No Edema Skin: Warm Labs Laboratory Tests Test 03/06/18 16:33 03/06/18 20:23 03/07/18 04:30 03/07/18 07:32 Glucose (Fingerstick) 115 mg/dL (70-99) 213 mg/dL (70-99) 135 mg/dL (70-99) White Blood Count 7.9 x10^3/uL (4.0-11.0) Red Blood Count 3.74 x10^6/uL (3.50-5.40) Hemoglobin 11.3 g/dL (12.0-15.5) Hematocrit 33.1 % (36.0-47.0) Mean Corpuscular Volume 88 fL (79-100) Mean Corpuscular Hemoglobin 30 pg (25-35) Mean Corpuscular Hemoglobin Concent 34 g/dL (31-37) Red Cell Distribution Width 13.5 % (11.5-14.5) Platelet Count 148 x10^3/uL (140-400) Neutrophils (%) (Auto) 68 % (31-73) Lymphocytes (%) (Auto) 20 % (24-48) Monocytes (%) (Auto) 10 % (0-9) Eosinophils (%) (Auto) 3 % (0-3) Basophils (%) (Auto) 0 % (0-3) Neutrophils # (Auto) 5.4 x10^3uL (1.8-7.7) Lymphocytes # (Auto) 1.6 x10^3/uL (1.0-4.8) Monocytes # (Auto) 0.8 x10^3/uL (0.0-1.1) Eosinophils # (Auto) 0.2 x10^3/uL (0.0-0.7) Basophils # (Auto) 0.0 x10^3/uL (0.0-0.2) Sodium Level 140 mmol/L (136-145) Potassium Level 3.6 mmol/L (3.5-5.1) Chloride Level 106 mmol/L (98-107) Carbon Dioxide Level 27 mmol/L (21-32) Anion Gap 7 (6-14) Blood Urea Nitrogen 19 mg/dL (7-20) Creatinine 1.4 mg/dL (0.6-1.0) Estimated GFR (Cockcroft-Gault) 36.2 BUN/Creatinine Ratio 14 (6-20) Glucose Level 117 mg/dL (70-99) Calcium Level 8.6 mg/dL (8.5-10.1) Total Bilirubin 0.6 mg/dL (0.2-1.0) Aspartate Amino Transf (AST/SGOT) 19 U/L (15-37) Alanine Aminotransferase (ALT/SGPT) 16 U/L (14-59) Alkaline Phosphatase 65 U/L (46-116) Total Protein 6.3 g/dL (6.4-8.2) Albumin 2.6 g/dL (3.4-5.0) Albumin/Globulin Ratio 0.7 (1.0-1.7) Test 03/07/18 10:40 03/07/18 16:27 03/07/18 20:33 03/08/18 04:30 Glucose (Fingerstick) 175 mg/dL (70-99) 166 mg/dL (70-99) 103 mg/dL (70-99) White Blood Count 7.7 x10^3/uL (4.0-11.0) Red Blood Count 3.88 x10^6/uL (3.50-5.40) Hemoglobin 11.6 g/dL (12.0-15.5) Hematocrit 33.9 % (36.0-47.0) Mean Corpuscular Volume 87 fL (79-100) Mean Corpuscular Hemoglobin 30 pg (25-35) Mean Corpuscular Hemoglobin Concent 34 g/dL (31-37) Red Cell Distribution Width 13.5 % (11.5-14.5) Platelet Count 166 x10^3/uL (140-400) Neutrophils (%) (Auto) 70 % (31-73) Lymphocytes (%) (Auto) 19 % (24-48) Monocytes (%) (Auto) 9 % (0-9) Eosinophils (%) (Auto) 3 % (0-3) Basophils (%) (Auto) 0 % (0-3) Neutrophils # (Auto) 5.4 x10^3uL (1.8-7.7) Lymphocytes # (Auto) 1.4 x10^3/uL (1.0-4.8) Monocytes # (Auto) 0.7 x10^3/uL (0.0-1.1) Eosinophils # (Auto) 0.2 x10^3/uL (0.0-0.7) Basophils # (Auto) 0.0 x10^3/uL (0.0-0.2) Sodium Level 139 mmol/L (136-145) Potassium Level 3.9 mmol/L (3.5-5.1) Chloride Level 104 mmol/L (98-107) Carbon Dioxide Level 25 mmol/L (21-32) Anion Gap 10 (6-14) Blood Urea Nitrogen 20 mg/dL (7-20) Creatinine 1.3 mg/dL (0.6-1.0) Estimated GFR (Cockcroft-Gault) 39.4 Glucose Level 149 mg/dL (70-99) Calcium Level 9.1 mg/dL (8.5-10.1) Test 03/08/18 07:40 Glucose (Fingerstick) 143 mg/dL (70-99) Laboratory Tests Test 03/07/18 16:27 03/07/18 20:33 03/08/18 04:30 03/08/18 07:40 Glucose (Fingerstick) 166 mg/dL (70-99) 103 mg/dL (70-99) 143 mg/dL (70-99) White Blood Count 7.7 x10^3/uL (4.0-11.0) Red Blood Count 3.88 x10^6/uL (3.50-5.40) Hemoglobin 11.6 g/dL (12.0-15.5) Hematocrit 33.9 % (36.0-47.0) Mean Corpuscular Volume 87 fL (79-100) Mean Corpuscular Hemoglobin 30 pg (25-35) Mean Corpuscular Hemoglobin Concent 34 g/dL (31-37) Red Cell Distribution Width 13.5 % (11.5-14.5) Platelet Count 166 x10^3/uL (140-400) Neutrophils (%) (Auto) 70 % (31-73) Lymphocytes (%) (Auto) 19 % (24-48) Monocytes (%) (Auto) 9 % (0-9) Eosinophils (%) (Auto) 3 % (0-3) Basophils (%) (Auto) 0 % (0-3) Neutrophils # (Auto) 5.4 x10^3uL (1.8-7.7) Lymphocytes # (Auto) 1.4 x10^3/uL (1.0-4.8) Monocytes # (Auto) 0.7 x10^3/uL (0.0-1.1) Eosinophils # (Auto) 0.2 x10^3/uL (0.0-0.7) Basophils # (Auto) 0.0 x10^3/uL (0.0-0.2) Sodium Level 139 mmol/L (136-145) Potassium Level 3.9 mmol/L (3.5-5.1) Chloride Level 104 mmol/L (98-107) Carbon Dioxide Level 25 mmol/L (21-32) Anion Gap 10 (6-14) Blood Urea Nitrogen 20 mg/dL (7-20) Creatinine 1.3 mg/dL (0.6-1.0) Estimated GFR (Cockcroft-Gault) 39.4 Glucose Level 149 mg/dL (70-99) Calcium Level 9.1 mg/dL (8.5-10.1) Medications Active Scripts Medications Dose Route/Sig Max Daily Dose Days Date Category Cymbalta (Duloxetine Hcl) 20 Mg Capsule.dr 20 Mg PO DAILY 11/25/17 Reported Lisinopril 20 Mg Tablet 1 Tab PO DAILY 11/25/17 Reported Furosemide 40 Mg Tablet 1 Tab PO QODAY 03/13/16 Reported Amlodipine Besylate 5 Mg Tablet 2.5 Mg PO DAILY 03/13/16 Reported Glimepiride 1 Mg Tablet 0.5 Mg PO DAILY 08/17/15 Reported Lantus (Insulin Glargine,Hum.rec.anlog) 100 Unit/1 Ml Vial 18 Unit SQ QHS 01/04/15 Reported Citalopram Hbr (Citalopram Hydrobromide) 20 Mg Tablet 40 Mg PO DAILY 11/12/13 Reported Lawrence Chewable (Aspirin) 81 Mg Tab.chew 81 Mg PO 09/13/13 Reported Fish Oil ([employer]-3 Fatty Acids) 500 Mg Capsule.dr 3,600 Mg PO 09/13/13 Reported Women's One Daily (Multivit With Calcium,Iron,Min) 1 Each Tablet 1 Each PO 09/13/13 Reported Pravastatin Sodium 40 Mg Tablet 40 Mg PO 09/13/13 Reported Carvedilol 12.5 Mg Tablet 6.25 Mg PO BID 09/13/13 Reported Ranitidine Hcl 300 Mg Capsule 300 Mg PO BID 09/13/13 Reported Lorazepam 0.5 Mg Tablet 0.5 Mg PO BID MDD 1mg 09/13/13 Reported Impression . 1. Sepsis, present on admission related to urinary tract infection. 2. Enterobacter cloacae urinary tract infection. 3. Abnormal chest x-ray with persistent prominent interstitial markings. Likely related to post IVF resuscitation resulting in congestive heart failure and less likely pulmonary fibrosis as a CT abdomen and pelvis with lower sections of the lung did not show any fibrotic changes. 5. No significant history of tobacco use. Plan . 1. Continue with present antibiotics per Infectious Disease. 2. IV Lasix today and Follow up chest x-ray. 3. Wean oxygen gradually down keeping saturation 92% and above. 4. P.r.n. bronchodilators. 5. Continue diuresis per PCP. NIKOLAI ROSADO MD Mar 08, 2018 11:11
[2018-03-08] MEDS: FUROSEMIDE 20 MG/2 ML VIAL. IVP ONE ×2 (11:30→11:40)
--- NOTE | 2018-03-08 12:52 | RAD ---
CT HEAD INDICATION: History of fall COMPARISON: None Available. TECHNIQUE: 5 mm contiguous axial images were obtained from the skull base to the vertex . Exposure: One or more of the following individualized dose reduction techniques were utilized for this examination: 1. Automated exposure control 2. Adjustment of the mA and/or kV according to patient size 3. Use of iterative reconstruction technique FINDINGS: Mild bilateral periventricular white matter hypodensities likely chronic small vessel ischemic disease. No evidence of acute intracranial hemorrhage. No extra-axial fluid collections. No mass effect or midline shift. Ventricular size is appropriate. Basal cisterns are patent. No fractures identified.Link-white differentiation is preserved.Globes and orbits are within normal limits. Mild mucosal thickening right maxillary sinus. IMPRESSION: No acute intracranial findings. Electronically signed by: Al Harris MD (03/08/2018 12:49 PM) [id number]
== END 2018-03-08 13:58 | disposition home or self-care (01) | DRG 872 ==
LOC: ER 12:02 → 5 NORTH 14:05
PROVIDERS: ADMIT Internal Medicine; ATTEND Internal Medicine
DX: A41.9 Sepsis, unspecified organism (principal); N18.4 Chronic kidney disease, stage 4 (severe); F32.9 Major depressive disorder, single episode, unspecified; G89.29 Other chronic pain; I25.10 Atherosclerotic heart disease of native coronary artery without angina pectoris; F41.9 Anxiety disorder, unspecified; K21.9 Gastro-esophageal reflux disease without esophagitis; E78.00 Pure hypercholesterolemia, unspecified; G47.00 Insomnia, unspecified; E11.22 Type 2 diabetes mellitus with diabetic chronic kidney disease; E78.5 Hyperlipidemia, unspecified; E11.42 Type 2 diabetes mellitus with diabetic polyneuropathy; I12.9 Hypertensive chronic kidney disease with stage 1 through stage 4 chronic kidney disease, or unspecified chronic kidney disease; Z98.49 Cataract extraction status, unspecified eye; I25.2 Old myocardial infarction; Z87.440 Personal history of urinary (tract) infections; Z90.710 Acquired absence of both cervix and uterus; Z95.5 Presence of coronary angioplasty implant and graft; Z88.0 Allergy status to penicillin; Z88.5 Allergy status to narcotic agent; Z82.49 Family history of ischemic heart disease and other diseases of the circulatory system
CPT/HCPCS: 36415; 70450; 71045; 73620; 74176; 80048; 80053; 81001; 82962; 83605; 84145; 85007; 85025; 87040; 94640; 96361; 96365; 96375; J0690; J0696; J1815; J1940; J7030; J7613; P9612; 99285-25

== ENCOUNTER → 2018-04-17 | Outpatient (CLI) | payer MEDICARE ==
[~2018-04-17] MED LIST changes: -AMLO5TAB2 PO; +AMLO5TAB7 PO; +METF500T16 PO; -METF500T5 PO
--- NOTE | 2018-04-17 11:41 | KCIC ---
Bone mineral density exam History: Postmenopausal, diabetes Comparison: None Findings: Bone mineral density examination utilizing DEXA was performed. Left hip bone mineral density of 0.768 g/cm2 corresponds with a T score -1.4, Z score 0.7. The bone mineral density of the lumbar spine was 0.981 g/cm2 which corresponds with a T-score of -0.6, Z score 2.1. By World [employer] on Osteoporosis criteria, a T score of 0 to-1 SD is considered to be within normal limits. A T score of -1 to -2.5 SD is considered osteopenia. A T score less than -2.5 SD is considered osteoporosis Impression: 1. There is normal bone density of the lumbar spine. Bone mineral density of the left hip corresponds with osteopenia. Electronically signed by: Hira Monaco MD (04/17/2018 11:37 AM) [email or web address]
== END | disposition home or self-care (01) ==
LOC: KCIC DEXA 11:15
PROVIDERS: ATTEND Internal Medicine
DX: Z13.820 Encounter for screening for osteoporosis (principal); E11.40 Type 2 diabetes mellitus with diabetic neuropathy, unspecified; I25.10 Atherosclerotic heart disease of native coronary artery without angina pectoris; E78.00 Pure hypercholesterolemia, unspecified; I48.91 Unspecified atrial fibrillation; I10 Essential (primary) hypertension; G47.30 Sleep apnea, unspecified; F32.9 Major depressive disorder, single episode, unspecified; Z78.0 Asymptomatic menopausal state; Z95.5 Presence of coronary angioplasty implant and graft; Z86.010 Personal history of colon polyps; Z90.49 Acquired absence of other specified parts of digestive tract; Z90.710 Acquired absence of both cervix and uterus; Z85.828 Personal history of other malignant neoplasm of skin; Z79.82 Long term (current) use of aspirin; Z79.4 Long term (current) use of insulin; Z79.899 Other long term (current) drug therapy
CPT/HCPCS: 77080

== ENCOUNTER → 2018-09-30 | Outpatient (CLI) | payer MEDICARE ==
[~2018-09-30] MED LIST changes: -ALEN70TA5 PO; +ALEN70TA6 PO; +AMLO5TAB10 PO; -AMLO5TAB7 PO; +ATOR40TA59 PO; +CARV12.511 PO; -CARV12.52 PO; +CHOL200027 PO; +DOCU-109 PO; -GABA-586 PO; -GABA-587 PO; +GABA-689 PO; +GABA300C18 PO; +MV-M1TAB36 PO; +OMEG1CAP6 PO
--- NOTE | 2018-09-30 17:21 | KCIC ---
Bilateral digital screening mammograms with 3-D tomosynthesis: Reason for examination: Routine screening. Comparison is made to previous studies dated 06/20/2017 and 05/15/2016. Bilateral mammograms in CC and oblique projections were obtained with 2-D imaging and 3-D tomosynthesis imaging on a Siemens Inspiration unit and reviewed on the workstation. Interpretation was made with the benefit of CAD. The skin and nipples show no abnormalities. No abnormal axillary lymph nodes are seen. The breast parenchyma shows scattered fatty and fibroglandular density. (Breast density: Category B.) There are no dominant masses, suspicious calcifications or architectural distortion. Impression: No evidence of malignancy. Recommend routine screening. BI-RAD Category 1: Negative. "Our facility is accredited by the [employer] Mammography Program." This patient's information has been entered into a reminder system for the patient to be notified with the results of her examination and a target date for the next mammogram. Electronically signed by: Layla Roldan MD (09/30/2018 5:18 PM) [id number]
== END | disposition home or self-care (01) ==
LOC: KCIC MAMMO 14:18
PROVIDERS: ATTEND Internal Medicine
DX: Z12.31 Encounter for screening mammogram for malignant neoplasm of breast (principal)
CPT/HCPCS: 77063; 77067

== ENCOUNTER 2018-11-19 11:44 | Observation (INO) | payer MEDICARE ==
[~2018-11-19] VITALS: Ht 157.5 cm; Wt 62.2 kg
[~2018-11-19 11:44] MED LIST changes: -ATOR40TA59 PO; -CHOL200027 PO; -DOCU-109 PO; -MV-M1TAB36 PO; -OMEG1CAP6 PO
--- NOTE | 2018-11-19 12:25 | EKG ---
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
[2018-11-19] MEDS ORDERED: ASPIRIN CHEWABLE 81 MG TABLET. PO ONE (12:30)
[2018-11-19] MEDS ORDERED: NITROGLYCERIN SUBLINGUAL 0.4 MG BOTTLE OF 25. SL PRN (12:30)
--- NOTE | 2018-11-19 12:31 | RAD ---
Single view of the chest. 11/19/2018 12:00 PM Indication: Shoulder pain, chest pain. 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 This is accentuated by lordotic projection. No pneumothorax or significant pleural effusion is identified. Diffuse interstitial coarsening is similar to comparison studies. Heart is enlarged but also stable with respect to prior studies. No acute osseous changes are identified. IMPRESSION: Stable radiographic appearance of the chest. Electronically signed by: Walter López MD (11/19/2018 12:29 PM) [facility]
[2018-11-19 12:47] LABS: BASO % 1 % (0-3); EOS # 0.1 x10^3/uL (0.0-0.7); EOS % 2 % (0-3); HEMATOCRIT 38.8 % (36.0-47.0); HEMOGLOBIN 12.8 g/dL (12.0-15.5); LYMPH # 1.2 x10^3/uL (1.0-4.8); LYMPH % 22 % (24-48); MEAN CORPUSCULAR HEMOGLOBIN 29 pg (25-35); MEAN CORPUSCULAR HGB CONC 33 g/dL (31-37); MEAN CORPUSCULAR VOLUME 88 fL (79-100); MONO # 0.5 x10^3/uL (0.0-1.1); MONO % 8 % (0-9); NEUT # 3.9 x10^3uL (1.8-7.7); NEUT % 68 % (31-73); PLATELET COUNT 170 x10^3/uL (140-400); RED CELL DISTRIBUTION WIDTH 14.1 % (11.5-14.5); WHITE BLOOD COUNT 5.8 x10^3/uL (4.0-11.0)
--- NOTE | 2018-11-19 12:54 | PHYS DOC ---
Past Medical History Past Medical History: Anxiety, Arrhythmia, CAD, Depression, Diabetes-Type II, GERD, High Cholesterol, Hypertension, PA, Renal Disease, UTI, Other Additional Past Medical Histor: Renal retention; [place], neuropathy, kidney dise ase stage IV Past Surgical History: Hysterectomy, Other Additional Past Surgical Histo: arm surgery, CARDIAC STENTS Alcohol Use: None Drug Use: None Adult General Chief Complaint Chief Complaint: CHEST PAIN HPI HPI Patient is a 83 year old female presented to ER today for evaluation of chest pain, heaviness in nature, bilateral shoulder pain since this morning, Around 9 AM. She denies any trouble breathing. She denies any cough or fever. Patient has history of coronary artery disease, had stents placement in the past. Patie nt denies any abdominal pain, no shoulder injury. She still feelS heaviness and pressure in her chest at this time. Review of Systems Review of Systems Constitutional: Denies fever or chills [] Eyes: Denies change in visual acuity, redness, or eye pain [] HENT: Denies nasal congestion or sore throat [] Respiratory: Denies cough or shortness of breath [] Cardiovascular: No additional information not addressed in HPI [] GI: Denies abdominal pain, nausea, vomiting, bloody stools or diarrhea [] : Denies dysuria or hematuria [] Musculoskeletal: Denies back pain or joint pain [] Integument: Denies rash or skin lesions [] Neurologic: Denies headache, focal weakness or sensory changes [] Endocrine: Denies polyuria or polydipsia [] All other systems were reviewed and found to be within normal limits, except as documented in this note. Current Medications Current Medications Current Medications Medications (Trade) Dose Ordered Sig/Smita Start Time Stop Time Status Last Admin Dose Admin Aspirin (Children'S Aspirin) 243 mg 1X ONCE 11/19/18 12:30 11/19/18 12:35 DC 11/19/18 13:17 243 MG Nitroglycerin (Nitrostat) 0.4 mg PRN Q5MIN PRN 11/19/18 12:30 Allergies Allergies Allergies Coded Allergies Type Severity Reaction Last Updated Verified Penicillins Allergy Intermediate GI 03/05/18 Yes codeine Adverse Reaction Intermediate nausea 02/01/16 Yes Physical Exam Physical Exam Constitutional: Well developed, well nourished, no acute distress, non-toxic appearance. [] HENT: Normocephalic, atraumatic, bilateral external ears normal, oropharynx moist, no oral exudates, nose normal. [] Eyes: PERRLA, EOMI, conjunctiva normal, no discharge. [] Neck: Normal range of motion, no tenderness, supple, no stridor. [] Cardiovascular:Heart rate regular rhythm, no murmur [] Lungs & Thorax: Bilateral breath sounds clear to auscultation [] Abdomen: Bowel sounds normal, soft, no tenderness, no masses, no pulsatile masses. [] Skin: Warm, dry, no erythema, no rash. [] Back: No tenderness, no CVA tenderness. [] Extremities: No tenderness, no cyanosis, no clubbing, ROM intact, no edema. [] Neurologic: Alert and oriented X 3, normal motor function, normal sensory function, no focal deficits noted. [] Psychologic: Affect normal, judgement normal, mood normal. [] Current Patient Data Vital Signs Vital Signs Date Time Temp Pulse Resp B/P (MAP) Pulse Ox O2 Delivery O2 Flow Rate FiO2 11/19/18 11:50 98.6 65 16 172/75 (107) 98 Room Air 98.6 Lab Values Laboratory Tests Test 11/19/18 12:35 White Blood Count 5.8 x10^3/uL (4.0-11.0) Red Blood Count 4.40 x10^6/uL (3.50-5.40) Hemoglobin 12.8 g/dL (12.0-15.5) Hematocrit 38.8 % (36.0-47.0) Mean Corpuscular Volume 88 fL (79-100) Mean Corpuscular Hemoglobin 29 pg (25-35) Mean Corpuscular Hemoglobin Concent 33 g/dL (31-37) Red Cell Distribution Width 14.1 % (11.5-14.5) Platelet Count 170 x10^3/uL (140-400) Neutrophils (%) (Auto) 68 % (31-73) Lymphocytes (%) (Auto) 22 % (24-48) L Monocytes (%) (Auto) 8 % (0-9) Eosinophils (%) (Auto) 2 % (0-3) Basophils (%) (Auto) 1 % (0-3) Neutrophils # (Auto) 3.9 x10^3uL (1.8-7.7) Lymphocytes # (Auto) 1.2 x10^3/uL (1.0-4.8) Monocytes # (Auto) 0.5 x10^3/uL (0.0-1.1) Eosinophils # (Auto) 0.1 x10^3/uL (0.0-0.7) Basophils # (Auto) 0.0 x10^3/uL (0.0-0.2) Prothrombin Time 12.4 SEC (11.7-14.0) Prothrombin Time INR 1.0 (0.8-1.1) Sodium Level 142 mmol/L (136-145) Potassium Level 4.8 mmol/L (3.5-5.1) Chloride Level 107 mmol/L (98-107) Carbon Dioxide Level 23 mmol/L (21-32) Anion Gap 12 (6-14) Blood Urea Nitrogen 34 mg/dL (7-20) H Creatinine 1.4 mg/dL (0.6-1.0) H Estimated GFR (Cockcroft-Gault) 36.1 BUN/Creatinine Ratio 24 (6-20) H Glucose Level 124 mg/dL (70-99) H Calcium Level 9.6 mg/dL (8.5-10.1) Magnesium Level 2.1 mg/dL (1.8-2.4) Total Bilirubin 0.4 mg/dL (0.2-1.0) Aspartate Amino Transferase (AST) 24 U/L (15-37) Alanine Aminotransferase (ALT) 15 U/L (14-59) Alkaline Phosphatase 75 U/L (46-116) Creatine Kinase 79 U/L (26-192) Creatine Kinase MB (Mass) 1.2 ng/mL (0.0-3.6) Creatine Kinase MB Relative Index 1.5 % (0-4) Troponin I Quantitative < 0.017 ng/mL (0.000-0.055) NB-Jtv-T-Type Natriuretic Peptide 395 pg/mL (0-449) Total Protein 6.8 g/dL (6.4-8.2) Albumin 3.5 g/dL (3.4-5.0) Albumin/Globulin Ratio 1.1 (1.0-1.7) Lipase 121 U/L (73-393) Laboratory Tests 11/19/18 12:35 Laboratory Tests 11/19/18 12:35 EKG EKG EKG WAS READ BY THIS PHYSICIAN AT 1157, RATE OF 67 BPM, NO STEMI. SINUS RHYTHM. [] Radiology/Procedures Radiology/Procedures [][facility] [address] [place] [address] IMAGING REPORT Signed PATIENT: NAZ GOMEZ ACCOUNT: [id number] : 1935 LOCATION: ER AGE: 83 SEX: F EXAM STATUS: REG ER ORD. PHYSICIAN: AMBER HOBBS DO REASON: CHEST PAIN AND BILATERAL SHOULDER PAIN PROCEDURE: PORTABLE CHEST 1V Single view of the chest. 11/19/2018 12:00 PM Indication: Shoulder pain, chest pain. 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 This is accentuated by lordotic projection. No pneumothorax or significant pleural effusion is identified. Diffuse interstitial coarsening is similar to comparison studies. Heart is enlarged but also stable with respect to prior studies. No acute osseous changes are identified. IMPRESSION: Stable radiographic appearance of the chest. Electronically signed by: Walter Watkins MD (11/19/2018 12:29 PM) [id number] DICTATED and SIGNED BY: WALTER WATKINS MD DATE: 11/19/18 1229 Course & Med Decision Making Course & Med Decision Making Pertinent Labs and Imaging studies reviewed. (See chart for details) [] Dragon Disclaimer Dragon Disclaimer This electronic medical record was generated, in whole or in part, using a voice recognition dictation system. Departure Departure Impression: Primary Impression: Chest pain Disposition: ADMITTED INPATIENT Admitting Physician: Juan Ramon Locke Condition: STABLE Referrals: GO HIDALGO MD (PCP) AMBER HOBBS DO November 19, 2018 12:54
[2018-11-19 13:00] LABS: PROTHROMBIN TIME PATIENT 12.4 SEC (11.7-14.0)
[2018-11-19 13:07] LABS: CALCIUM 9.6 mg/dL (8.5-10.1); CREATININE 1.4 mg/dL (0.6-1.0); GFR 36.1; POTASSIUM 4.8 mmol/L (3.5-5.1)
[2018-11-19 13:12] LABS: ALBUMIN 3.5 g/dL (3.4-5.0); ALBUMIN/GLOBULIN RATIO 1.1 (1.0-1.7); MAGNESIUM 2.1 mg/dL (1.8-2.4); TOTAL BILIRUBIN 0.4 mg/dL (0.2-1.0); TOTAL PROTEIN 6.8 g/dL (6.4-8.2)
[2018-11-19] MEDS ORDERED: ONDANSETRON PF 4 MG/2 ML VIAL. IV PRN (13:45)
[2018-11-19 14:35] LABS: BILIRUBIN,URINE NEGATIVE (NEG); CLARITY,URINE CLEAR; COLOR,URINE YELLOW; NITRITE,URINE NEGATIVE (NEG); PH,URINE 5.5; PROTEIN,URINE NEGATIVE (NEG-TRACE); UROBILINOGEN,URINE 0.2 mg/dL (0.2 mg/dL)
[2018-11-19 14:46] LABS: BACTERIA,URINE MODERATE /HPF (0-FEW); RBC,URINE 0 /HPF (0-2); SQUAMOUS EPITHELIAL CELL,UR MOD /LPF
--- NOTE | 2018-11-19 14:51 | PDOC2 ---
CARDIAC CONSULT DATE OF CONSULT Date of Consult DATE: 11/19/18 TIME: 14:38 REASON FOR CONSULT Reason for Consult: Chest pain REFERRING PHYSICIAN Referring Physician: Michael SOURCE Source: Chart review, Patient HISTORY OF PRESENT ILLNESS HISTORY OF PRESENT ILLNESS This is a pleasant 83 yo female admitted for complains of left shoulder pain and neck pain. There was no chest pain. She woke up this morning and felt that her left shoulder was throbbing and so as the left side of her neck. No noted ROM restriction to her neck and left shoulder and currently not aching. She did felt SOA during this episodes and lasted about 1 hour for her symptoms till she got to ED. No NTG was given but ASA was given. Denies any nausea, vomiting and no palpitations. No chest pain. In the last 1-2 weeks there has been no noted decreased in activity tolerance, RUIZ nor exertional CP. She did however had a nontraumatic fall in her home last Friday as she tripped on a powercord and hit her head to the window seal that made her hyperextend her neck and hit her left hip on the floor. No syncope or dizziness associated with it. There was no significant pain or ROM difficulties after that event. 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 No recent pulmonary infection, PND, orthopnea and no prior hx of VTE. She takes ASA and has been complaint with her medications. She does have some numbness to her left toes blaming it on neuropathy but no wounds and no pain to bilateral LE with activities. PAST MEDICAL HISTORY Past Medical History Cardiovascular: CAD, HTN, Hyperlipidemia, carotid artery disease, PAD, moderate AI Pulmonary: Other (MARIANA)? 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, OA, osteopenia PAST SURGICAL HISTORY Past Surgical History Cholecystectomy, Cataract Removal, Hysterectomy, Other (renal stone removal; left carotid endarterectomy 11/2013; bladder sling; PCI/stent ) FAMILY HISTORY Family History Coronary Artery Disease (mother) SOCIAL HISTORY Smoke: No ALCOHOL: none Drugs: None Lives: with Family CURRENT MEDICATIONS CURRENT MEDICATIONS Current Medications Medications (Trade) Dose Ordered Sig/Smita Route PRN Reason Start Time Stop Time Status Last Admin Dose Admin Aspirin (Children'S Aspirin) 243 mg 1X ONCE PO 11/19/18 12:30 11/19/18 12:35 DC 11/19/18 13:17 ALLERGIES ALLERGIES: Coded Allergies: Penicillins (Verified Allergy, Intermediate, GI, 03/05/18) codeine (Verified Adverse Reaction, Intermediate, nausea, 02/01/16) ROS Review of System 14 point ROS evaluated with pertinent positives noted per HPI PHYSICAL EXAM General: Alert, Oriented X3, Cooperative, No acute distress HEENT: Atraumatic, Mucous membr. moist/pink Lungs: Clear to auscultation, Normal air movement Heart: Regular rate (SR), Normal S1, Normal S2, Other (2/6 diastolic murmur to erb) Abdomen: Soft, No tenderness Extremities: No cyanosis, No edema Skin: No breakdown, No significant lesion Neuro: Normal speech, Sensation intact Psych/Mental Status: Mental status NL, Mood NL MUSCULOSKELETAL: Osteoarthritic changes both hands VITALS VITALS Vital Signs Date Time Temp Pulse Resp B/P (MAP) Pulse Ox O2 Delivery O2 Flow Rate FiO2 11/19/18 11:50 98.6 65 16 172/75 (107) 98 Room Air 98.6 LABS Lab: Laboratory Tests Test 11/19/18 12:35 White Blood Count 5.8 x10^3/uL (4.0-11.0) Red Blood Count 4.40 x10^6/uL (3.50-5.40) Hemoglobin 12.8 g/dL (12.0-15.5) Hematocrit 38.8 % (36.0-47.0) Mean Corpuscular Volume 88 fL (79-100) Mean Corpuscular Hemoglobin 29 pg (25-35) Mean Corpuscular Hemoglobin Concent 33 g/dL (31-37) Red Cell Distribution Width 14.1 % (11.5-14.5) Platelet Count 170 x10^3/uL (140-400) Neutrophils (%) (Auto) 68 % (31-73) Lymphocytes (%) (Auto) 22 % (24-48) Monocytes (%) (Auto) 8 % (0-9) Eosinophils (%) (Auto) 2 % (0-3) Basophils (%) (Auto) 1 % (0-3) Neutrophils # (Auto) 3.9 x10^3uL (1.8-7.7) Lymphocytes # (Auto) 1.2 x10^3/uL (1.0-4.8) Monocytes # (Auto) 0.5 x10^3/uL (0.0-1.1) Eosinophils # (Auto) 0.1 x10^3/uL (0.0-0.7) Basophils # (Auto) 0.0 x10^3/uL (0.0-0.2) Prothrombin Time 12.4 SEC (11.7-14.0) Prothromb Time International Ratio 1.0 (0.8-1.1) Sodium Level 142 mmol/L (136-145) Potassium Level 4.8 mmol/L (3.5-5.1) Chloride Level 107 mmol/L (98-107) Carbon Dioxide Level 23 mmol/L (21-32) Anion Gap 12 (6-14) Blood Urea Nitrogen 34 mg/dL (7-20) Creatinine 1.4 mg/dL (0.6-1.0) Estimated GFR (Cockcroft-Gault) 36.1 BUN/Creatinine Ratio 24 (6-20) Glucose Level 124 mg/dL (70-99) Calcium Level 9.6 mg/dL (8.5-10.1) Magnesium Level 2.1 mg/dL (1.8-2.4) Total Bilirubin 0.4 mg/dL (0.2-1.0) Aspartate Amino Transf (AST/SGOT) 24 U/L (15-37) Alanine Aminotransferase (ALT/SGPT) 15 U/L (14-59) Alkaline Phosphatase 75 U/L (46-116) Creatine Kinase 79 U/L (26-192) Creatine Kinase MB (Mass) 1.2 ng/mL (0.0-3.6) Creatine Kinase MB Relative Index 1.5 % (0-4) Troponin I Quantitative < 0.017 ng/mL (0.000-0.055) DI-Oju-N-Type Natriuretic Peptide 395 pg/mL (0-449) Total Protein 6.8 g/dL (6.4-8.2) Albumin 3.5 g/dL (3.4-5.0) Albumin/Globulin Ratio 1.1 (1.0-1.7) Lipase 121 U/L (73-393) ECHOCARDIOGRAM ECHOCARDIOGRAM <Conclusion> The left ventricular systolic function is normal. The Ejection Fraction is 55-60%. There is normal LV segmental wall motion. Transmitral Doppler flow pattern is Grade I-abnormal relaxation pattern. Moderate aortic regurgitation. Trace tricuspid regurgitation. The PA pressure was estimated at 29 mmHg. There is no evidence of significant pericardial effusion. DATE: 11/25/17 1113 STRESS TEST STRESS TEST Conclusion 1. No EKG evidence of stressed induced ischemia. 2. Nuclear imaging shows no reversible ischemia or infarct. 3. Normal left ventricular systolic function with ejection fraction of greater than 70% 4. Low risk Lexiscan nuclear stress test. DATE: 11/26/17 1311 ASSESSMENT/PLAN ASSESSMENT/PLAN 1. Atypical CP: More of left shoulder and neck pain. EKG SR without acute changes. initial trop nml. suspect MSK with uncontrolled HTN contributing as well 2. Nontraumatic mechanical fall: noted with hyperextension of neck but currently no ROM pain or limitations. Defer to PCP 3. CAD: past stents. 2018 MPI as noted above 4. HTN: labile, likely from inadequate coverage 5. HLP 6. DM2/DPN 7. PAD: clinically stable now owunds 8. CKD: possibly stage 3. 9. Past CEA to left: now noted with bruit. 10. 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 Recommendations 1. Lipids, trend troponin. TTE. Left carotid doppler 2. Continue with secondary prevention 3. Hydralazine IV x1. ASA 4. Restart home BP meds, ASA. Discussed with RRN. Will increase norvasc and will note BP trend overnight. TERESA SHAFFER DISABILITY COORDINATOR November 19, 2018 14:51
[2018-11-19 15:00] VITALS: BP 200/86
--- NOTE | 2018-11-19 15:00 | NUR ---
Pt arrived to unit at 1455 via gurney. Pt ambulated to bed. Family at bedside. No complaints of chest pain or shortness of breath at this time. Call light within reach. Will continue to monitor.
[2018-11-19] MEDS ORDERED: hydrALAZINE 20 MG/ML VIAL. IVP ONE (15:30)
[2018-11-19] MEDS ORDERED: hydrALAZINE 20 MG/ML VIAL. IVP PRN (15:45)
--- NOTE | 2018-11-19 16:05 | CARD ---
MR#: [id number] Date of Study: 11/19/2018 Ordering Physician: TERESA SHAFFER, Referring Physician: TAYO HECK Tech: Mehnaz Michael RDCS APPROVED REPORT EXAM: Two-dimensional and M-mode echocardiogram with Doppler and color Doppler. Other Information Quality : AverageHR: 63bpm Rhythm : NSR INDICATION Chest Pain 2D DIMENSIONS RVDd2.8 (2.9-3.5cm)Left Atrium(2D)4.0 (1.6-4.0cm) IVSd1.0 (0.7-1.1cm)Aortic Root(2D)3.0 (2.0-3.7cm) LVDd4.0 (3.9-5.9cm)LVOT Diameter1.9 (1.8-2.4cm) PWd0.9 (0.7-1.1cm)LVDs2.7 (2.5-4.0cm) FS (%) 31.8 %SV43.0 ml LVEF(%)60.4 (>50%) M-Mode DIMENSIONS Left Atrium(MM)4.23 (2.5-4.0cm)Aortic Root2.92 (2.2-3.7cm) Aortic Valve AoV Peak Shai.220.2cm/sAoV VTI55.5cm AO Peak GR.19.4mmHgLVOT Peak Shai.100.7cm/s AO Mean GR.10mmHgAVA (VMAX)1.28cm2 BELINDA (VTI)1.60nv4JM P 1/2 Pjrk714ua Mitral Valve MV E Qrfwxhkb14.5cm/sMV E Peak Gr.7mmHg MV DECEL [id number] A Acauylte084.6cm/s MV E Mean Gr.3mmHgE/A Ratio0.8 Pulmonary Valve PV Peak Syddawdv37.1cm/s Tricuspid Valve TR P. Bzrapeea862rq/sRAP KRHGFRQS6biMx TR Peak Gr.94zlUrCNYO77ldQj Pulmonary Vein S1 Joosipis82.5cm/sD2 Beahecxs18.4cm/s PVa quuxadjy80hbwr LEFT VENTRICLE The left ventricle is normal size. There is normal left ventricular wall thickness. The left ventricu lar systolic function is normal. The Ejection Fraction is 55-60%. There is normal LV segmental wall m otion. Transmitral Doppler flow pattern is Grade I-abnormal relaxation pattern. RIGHT VENTRICLE The right ventricle is normal size. There is normal right ventricular wall thickness. The right ventr icular systolic function is normal. ATRIA The left atrium is mildly dilated. The right atrium size is normal. The interatrial septum is intact with no evidence for an atrial septal defect or patent foramen ovale as noted on 2-D or Doppler imagi ng. AORTIC VALVE The aortic valve is mildly calcified. The aortic valve is trileaflet. Doppler and Color Flow revealed moderate aortic regurgitation. There is mild valvular aortic stenosis. There is no aortic valvular vegetation. MITRAL VALVE The mitral valve is normal in structure and function. There is no evidence of mitral valve prolapse. There is no mitral valve stenosis. Doppler and Color-flow revealed trace to mild mitral regurgitation . TRICUSPID VALVE The tricuspid valve is normal in structure and function. Doppler and Color Flow revealed trace tricus pid regurgitation. The PA pressure was estimated at 22 mmHg. There is no tricuspid valve prolapse or vegetation. There is no tricuspid valve stenosis. PULMONIC VALVE The pulmonic valve is not well visualized. GREAT VESSELS The aortic root is normal in size. The ascending aorta is normal in size. The IVC is normal in size a nd collapses >50% with inspiration. PERICARDIAL EFFUSION There is no evidence of significant pericardial effusion. Critical Notification Critical Value: No <Conclusion> The left ventricular systolic function is normal. The Ejection Fraction is 55-60%. There is normal LV segmental wall motion. Transmitral Doppler flow pattern is Grade I-abnormal relaxation pattern. Moderate aortic regurgitation. Trace to mild mitral regurgitation. Trace tricuspid regurgitation. The PA pressure was estimated at 22 mmHg. There is no evidence of significant pericardial effusion. Signed by : Earl Barker, Electronically Approved : 11/19/2018 16:04:49
[2018-11-19] MEDS ORDERED: OMEG1CAP6 PO (16:07)
[2018-11-19] MEDS ORDERED: ATOR40TA59 PO (16:07)
[2018-11-19] MEDS ORDERED: GABA300C18 PO (16:07)
[2018-11-19] MEDS ORDERED: DOCU-109 PO (16:07)
[2018-11-19] MEDS ORDERED: MV-M1TAB36 PO (16:07)
[2018-11-19] MEDS ORDERED: CHOL200027 PO (16:07)
[2018-11-19] MEDS ORDERED: DEXTROSE 50% 25 GM / 50ML DISP.SYRIN. IV PRN ×2 (16:15→21:15)
[2018-11-19] MEDS: CARVEDILOL 6.25 MG TABLET. PO SCH (17:04)
--- NOTE | 2018-11-19 17:21 | RAD ---
MR#: [id number] Date of Study: 11/19/2018 Ordering Physician: TERESA SHAFFER, Referring Physician: TAYO HECK Tech: Laverne Maxwell RDMS, ABIDA APPROVED REPORT Patient Location: IN-PATIENT Laterality:Bilateral Indications Bruit Risk Factors Hypertension: Hyperlipidemia Doppler Spectral Velocity Analysis Right Left pCCA 58/8 cm/spCCA 73/15 cm/s mCCA 82/11 cm/smCCA 92/18 cm/s dCCA 76/15 cm/sdCCA 96/18 cm/s Bulb 85/14 cm/sBulb 34/6 cm/s ECA 202/16 cm/sECA 233/7 cm/s pICA 94/21 cm/spICA 81/12 cm/s Vasile 167/37 cm/smICA 87/16 cm/s dICA 148/27 cm/sdICA 72/17 cm/s Vert. 51/10 cm/sVert. 49/12 cm/s Subcl. 144/ cm/sSubcl. 134/ cm/s ICA/CCA 2.04ICA/CCA 1.19 Findings Grayscale images of the right internal carotid artery and carotid bulb demonstrate moderate diffuse a therosclerotic plaque. Based on velocity criteria there is approximately 50-69% stenosis involving th e right proximal and mid internal carotid artery. The right external carotid artery demonstrates like ly greater than 50% stenosis. The right vertebral artery velocities are antegrade and within normal l imits. No significant subclavian velocity abdomen arteries are noted. On the left there are mild diffuse atherosclerotic plaque. No significant flow-limiting stenosis is i dentified. Overall 0 to less than 50% stenosis involving the internal carotid artery. There is likely greater than 50% stenosis involving the left external carotid artery. The left vertebral artery and subclavian velocities are within normal limits. Critical Notification Critical Value: No <Conclusion> 1. Moderate 50-69% stenosis by velocity criteria involving the right internal carotid artery 2. Antegrade vertebral velocities. Signed by : Edy Robertson, Electronically Approved : 11/19/2018 17:21:01
[2018-11-19 19:33] VITALS: BP 159/47
--- NOTE | 2018-11-19 19:37 | PDOC1 ---
History and Physical Date of Admission: Date of Admission DATE: 11/19/18 TIME: 19:35 Chief Complaint: Problems: (1) Debility (2) Pneumonia (3) Myoclonic disorder (4) Hyperkalemia (5) Renal failure (6) Acute renal failure (7) Leukocytosis (8) UTI (urinary tract infection) (9) RAJAN (acute kidney injury) (10) Multiple contusions (11) Sepsis due to urinary tract infection (12) Renal insufficiency (13) Viral syndrome (14) Chest pain Chief Complain: Chest pain left neck pain left shoulder pain History of Present Illness: HPI: Patient is a pleasant elderly female who has previous known coronary disease with 2 stents She presented the ER complaining of chest pain pain and left shoulder pain Describes is irritating Rated as 7 out of 10 She has associated weakness She tried increasing her home meds but that and work It's worse with moving I discussed case with ER physician recommended patient consult cardiology The nurse practitioner has seen the patient he feels this is probably not cardiac we hope to discharge tomorrow after further cardiac evaluation through the evening Past Medical/Surgical History: PMH/PSH: PAST MEDICAL HISTORY Past Medical History Cardiovascular: CAD, HTN, Hyperlipidemia, carotid artery disease, PAD, moderate AI Pulmonary: Other (MARIANA)? 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, OA, osteopenia PAST SURGICAL HISTORY Past Surgical History Cholecystectomy, Cataract Removal, Hysterectomy, Other (renal stone removal; left carotid endarterectomy 11/2013; bladder sling; PCI/stent ) Allergies: Allergies: Coded Allergies: Penicillins (Verified Allergy, Intermediate, GI, 03/05/18) codeine (Verified Adverse Reaction, Intermediate, nausea, 02/01/16) Family History: Family History: CAD Social History: Social Hisoty: She does not drink smoke or take drugs she is her has Alzheimer's Current Medications: Current Medications Current Medications Nitroglycerin (Nitrostat) 0.4 mg PRN Q5MIN PRN SL CHEST PAIN; Start 11/19/18 at 12:30 Aspirin (Children'S Aspirin) 243 mg 1X ONCE PO Last administered on 11/19/18at 13:17; Start 11/19/18 at 12:30; Stop 11/19/18 at 12:35; Status DC Ondansetron HCl (Zofran) 4 mg PRN Q8HRS PRN IV NAUSEA/VOMITING; Start 11/19/18 at 13:45; Stop 11/20/18 at 13:44 Hydralazine HCl (Apresoline Inj) 10 mg 1X ONCE IVP Last administered on at 16:26; Start 11/19/18 at 15:30; Stop 11/19/18 at 15:31; Status DC Hydralazine HCl (Apresoline Inj) 10 mg PRN Q4HRS PRN IVP ELEVATED BP, SEE COMMENTS; Start 11/19/18 at 15:45 Aspirin (Children'S Aspirin) 81 mg DAILY PO ; Start 11/20/18 at 09:00 Atorvastatin Calcium (Lipitor) 40 mg HS PO ; Start 11/19/18 at 21:00 Carvedilol (Coreg) 6.25 mg BIDWMEALS PO Last administered on 11/19/18at 17:04; Start 11/19/18 at 17:00 Citalopram Hydrobromide (CeleXA) 20 mg DAILY PO ; Start 11/20/18 at 09:00 Docusate Sodium (Colace) 100 mg BID PO ; Start 11/19/18 at 21:00 Furosemide (Lasix) 40 mg QODAY PO ; Start 11/20/18 at 09:00 Gabapentin (Neurontin) 300 mg HS PO ; Start 11/19/18 at 21:00 Lisinopril (Prinivil) 20 mg DAILY PO ; Start 11/20/18 at 09:00 Fish Oil (Fish Oil) 1,000 mg BID PO ; Start 11/19/18 at 21:00 Vitamin D (Vitamin D3) 2,000 unit DAILY PO ; Start 11/20/18 at 09:00 Glimepiride (Amaryl) 0.5 mg DAILY PO ; Start 11/20/18 at 09:00 Insulin Glargine (Lantus) 18 units QHS SQ ; Start 11/19/18 at 21:00 Multivitamins/ Minerals (I-Lisseth) 1 tab DAILY PO ; Start 11/20/18 at 09:00 Famotidine (Pepcid) 20 mg DAILY PO ; Start 11/20/18 at 09:00 Amlodipine Besylate (Norvasc) 10 mg DAILY PO ; Start 11/20/18 at 09:00 Dextrose (Dextrose 50%-Water Syringe) 12.5 gm PRN Q15MIN PRN IV SEE COMMENTS; Start 11/19/18 at 16:15 Active Scripts Active Reported Colace (Docusate Sodium) 100 Mg Capsule 1 Cap PO BID Vitamin D3 (Cholecalciferol (Vitamin D3)) 2,000 Unit Tablet 2,000 Unit PO DAILY Ocuvite Eye + Multi Tablet (Mv-Mn/FA/Vit K/Lycop/Lut/Zeaxa) 1 Each Tablet 1 Each PO DAILY Gabapentin (Gabapentin) 300 Mg Capsule 300 Mg PO HS Atorvastatin Calcium 40 Mg Tablet 40 Mg PO HS Fish Oil 1,000 Mg Capsule ([place]-3 Fatty Acids/Fish Oil) 1 Each Capsule 1 Each PO BID Lisinopril 20 Mg Tablet 1 Tab PO DAILY Furosemide 40 Mg Tablet 1 Tab PO QODAY Amlodipine Besylate 5 Mg Tablet 5 Mg PO DAILY Glimepiride 1 Mg Tablet 0.5 Mg PO DAILY Lantus (Insulin Glargine,Hum.rec.anlog) 100 Unit/1 Ml Vial 18 Unit SQ QHS Citalopram Hbr (Citalopram Hydrobromide) 20 Mg Tablet 20 Mg PO DAILY Lawrence Chewable (Aspirin) 81 Mg Tab.chew 81 Mg PO Women's One Daily (Multivit With Calcium,Iron,Min) 1 Each Tablet 1 Each PO Carvedilol (Carvedilol) 12.5 Mg Tablet 6.25 Mg PO BID Ranitidine Hcl 300 Mg Capsule 300 Mg PO DAILY ROS: Review of Systems Review of System REVIEW OF SYSTEMS: GENERAL: Denies weakness SKIN: No bruising, hair changes or rashes. EYES: No blurred, double or loss of vision. NOSE AND THROAT: No history of nosebleeds, hoarseness or sore throat. HEART: No history of palpitations, chest pain or shortness of breath on exertion. LUNGS: Denies cough, hemoptysis, wheezing or shortness of breath. GASTROINTESTINAL: Denies changes in appetite, nausea, vomiting, diarrhea or constipation. GENITOURINARY: No history of frequency, urgency, hesitancy or nocturia. NEUROLOGIC: Denies history of numbness, tingling, tremor or weakness. PSYCHIATRIC: No history of panic, anxiety or depression. ENDOCRINE: No history of heat or cold intolerance, polyuria or polydipsia. EXTREMITIES: Denies muscle weakness, joint pain, pain on walking or stiffness. Physical Exam: Vital Signs: Vital Signs Date Time Temp Pulse Resp B/P (MAP) Pulse Ox O2 Delivery O2 Flow Rate FiO2 11/19/18 17:04 75 174/67 11/19/18 16:50 Room Air 11/19/18 15:00 97.3 16 96 97.3 Physcial Exam: GEN.: No apparent distress. Alert and oriented. HEENT: Head is normocephalic, atraumatic NECK: Supple, no JVD LUNGS: Clear to auscultation without rhonchi or wheezing HEART: RRR, S1, S2 present. Peripheral pulses intact ABDOMEN: Soft, nontender. Positive bowel sounds no organomegaly EXTREMITIES: Without any cyanosis, clubbing, or edema. Pedal pulses intact NEUROLOGIC: Normal speech, normal tone. A&O x 3 PSYCHIATRIC: Normal affect, normal mood. Stable SKIN: No ulcerations or rashes VASCULAR: Good capillary refill Labs: Labs: Laboratory Tests Test 11/19/18 12:35 11/19/18 14:20 11/19/18 15:00 11/19/18 16:56 White Blood Count 5.8 x10^3/uL (4.0-11.0) Red Blood Count 4.40 x10^6/uL (3.50-5.40) Hemoglobin 12.8 g/dL (12.0-15.5) Hematocrit 38.8 % (36.0-47.0) Mean Corpuscular Volume 88 fL (79-100) Mean Corpuscular Hemoglobin 29 pg (25-35) Mean Corpuscular Hemoglobin Concent 33 g/dL (31-37) Red Cell Distribution Width 14.1 % (11.5-14.5) Platelet Count 170 x10^3/uL (140-400) Neutrophils (%) (Auto) 68 % (31-73) Lymphocytes (%) (Auto) 22 % (24-48) Monocytes (%) (Auto) 8 % (0-9) Eosinophils (%) (Auto) 2 % (0-3) Basophils (%) (Auto) 1 % (0-3) Neutrophils # (Auto) 3.9 x10^3uL (1.8-7.7) Lymphocytes # (Auto) 1.2 x10^3/uL (1.0-4.8) Monocytes # (Auto) 0.5 x10^3/uL (0.0-1.1) Eosinophils # (Auto) 0.1 x10^3/uL (0.0-0.7) Basophils # (Auto) 0.0 x10^3/uL (0.0-0.2) Prothrombin Time 12.4 SEC (11.7-14.0) Prothromb Time International Ratio 1.0 (0.8-1.1) Sodium Level 142 mmol/L (136-145) Potassium Level 4.8 mmol/L (3.5-5.1) Chloride Level 107 mmol/L (98-107) Carbon Dioxide Level 23 mmol/L (21-32) Anion Gap 12 (6-14) Blood Urea Nitrogen 34 mg/dL (7-20) Creatinine 1.4 mg/dL (0.6-1.0) Estimated GFR (Cockcroft-Gault) 36.1 BUN/Creatinine Ratio 24 (6-20) Glucose Level 124 mg/dL (70-99) Calcium Level 9.6 mg/dL (8.5-10.1) Magnesium Level 2.1 mg/dL (1.8-2.4) Total Bilirubin 0.4 mg/dL (0.2-1.0) Aspartate Amino Transf (AST/SGOT) 24 U/L (15-37) Alanine Aminotransferase (ALT/SGPT) 15 U/L (14-59) Alkaline Phosphatase 75 U/L (46-116) Creatine Kinase 79 U/L (26-192) Creatine Kinase MB (Mass) 1.2 ng/mL (0.0-3.6) Creatine Kinase MB Relative Index 1.5 % (0-4) Troponin I Quantitative < 0.017 ng/mL (0.000-0.055) < 0.017 ng/mL (0.000-0.055) SX-Rds-A-Type Natriuretic Peptide 395 pg/mL (0-449) Total Protein 6.8 g/dL (6.4-8.2) Albumin 3.5 g/dL (3.4-5.0) Albumin/Globulin Ratio 1.1 (1.0-1.7) Lipase 121 U/L (73-393) Urine Collection Type Void Urine Color Yellow Urine Clarity Clear Urine pH 5.5 Urine Specific [place] 1.010 Urine Protein Negative mg/dL (NEG-TRACE) Urine Glucose (UA) Negative mg/dL (NEG) Urine Ketones (Stick) Negative mg/dL (NEG) Urine Blood Negative (NEG) Urine Nitrite Negative (NEG) Urine Bilirubin Negative (NEG) Urine Urobilinogen Dipstick 0.2 mg/dL (0.2 mg/dL) Urine Leukocyte Esterase Moderate (NEG) Urine RBC 0 /HPF (0-2) Urine WBC 5-10 /HPF (0-4) Urine Squamous Epithelial Cells Mod /LPF Urine Bacteria Moderate /HPF (0-FEW) Glucose (Fingerstick) 80 mg/dL (70-99) Laboratory Tests Test 11/19/18 12:35 11/19/18 14:20 11/19/18 15:00 11/19/18 16:56 White Blood Count 5.8 x10^3/uL (4.0-11.0) Red Blood Count 4.40 x10^6/uL (3.50-5.40) Hemoglobin 12.8 g/dL (12.0-15.5) Hematocrit 38.8 % (36.0-47.0) Mean Corpuscular Volume 88 fL (79-100) Mean Corpuscular Hemoglobin 29 pg (25-35) Mean Corpuscular Hemoglobin Concent 33 g/dL (31-37) Red Cell Distribution Width 14.1 % (11.5-14.5) Platelet Count 170 x10^3/uL (140-400) Neutrophils (%) (Auto) 68 % (31-73) Lymphocytes (%) (Auto) 22 % (24-48) Monocytes (%) (Auto) 8 % (0-9) Eosinophils (%) (Auto) 2 % (0-3) Basophils (%) (Auto) 1 % (0-3) Neutrophils # (Auto) 3.9 x10^3uL (1.8-7.7) Lymphocytes # (Auto) 1.2 x10^3/uL (1.0-4.8) Monocytes # (Auto) 0.5 x10^3/uL (0.0-1.1) Eosinophils # (Auto) 0.1 x10^3/uL (0.0-0.7) Basophils # (Auto) 0.0 x10^3/uL (0.0-0.2) Prothrombin Time 12.4 SEC (11.7-14.0) Prothromb Time International Ratio 1.0 (0.8-1.1) Sodium Level 142 mmol/L (136-145) Potassium Level 4.8 mmol/L (3.5-5.1) Chloride Level 107 mmol/L (98-107) Carbon Dioxide Level 23 mmol/L (21-32) Anion Gap 12 (6-14) Blood Urea Nitrogen 34 mg/dL (7-20) Creatinine 1.4 mg/dL (0.6-1.0) Estimated GFR (Cockcroft-Gault) 36.1 BUN/Creatinine Ratio 24 (6-20) Glucose Level 124 mg/dL (70-99) Calcium Level 9.6 mg/dL (8.5-10.1) Magnesium Level 2.1 mg/dL (1.8-2.4) Total Bilirubin 0.4 mg/dL (0.2-1.0) Aspartate Amino Transf (AST/SGOT) 24 U/L (15-37) Alanine Aminotransferase (ALT/SGPT) 15 U/L (14-59) Alkaline Phosphatase 75 U/L (46-116) Creatine Kinase 79 U/L (26-192) Creatine Kinase MB (Mass) 1.2 ng/mL (0.0-3.6) Creatine Kinase MB Relative Index 1.5 % (0-4) Troponin I Quantitative < 0.017 ng/mL (0.000-0.055) < 0.017 ng/mL (0.000-0.055) FP-Wjn-T-Type Natriuretic Peptide 395 pg/mL (0-449) Total Protein 6.8 g/dL (6.4-8.2) Albumin 3.5 g/dL (3.4-5.0) Albumin/Globulin Ratio 1.1 (1.0-1.7) Lipase 121 U/L (73-393) Urine Collection Type Void Urine Color Yellow Urine Clarity Clear Urine pH 5.5 Urine Specific [place] 1.010 Urine Protein Negative mg/dL (NEG-TRACE) Urine Glucose (UA) Negative mg/dL (NEG) Urine Ketones (Stick) Negative mg/dL (NEG) Urine Blood Negative (NEG) Urine Nitrite Negative (NEG) Urine Bilirubin Negative (NEG) Urine Urobilinogen Dipstick 0.2 mg/dL (0.2 mg/dL) Urine Leukocyte Esterase Moderate (NEG) Urine RBC 0 /HPF (0-2) Urine WBC 5-10 /HPF (0-4) Urine Squamous Epithelial Cells Mod /LPF Urine Bacteria Moderate /HPF (0-FEW) Glucose (Fingerstick) 80 mg/dL (70-99) Images: Images Chest x-ray negative Assessment/Plan Assessment/Plan Probable atypical chest pain more shoulder pain and muscle skeletal pain Plan Since she has known coronary disease were going to watch her overnight and do telemetry serial enzymes still EKGs consul cardiology Home meds DVT prophylaxis Full code Hope to discharge in a.m. if workup is negative TAYO HECK III DO November 19, 2018 19:37
[2018-11-19] MEDS ORDERED: GABAPENTIN 300 MG CAPSULE. PO SCH (21:00)
[2018-11-19] MEDS ORDERED: ATORVASTATIN CALCIUM 40 MG TABLET. PO SCH (21:00)
[2018-11-19] MEDS ORDERED: INSULIN GLARGINE 300 UNITS/3 ML INSULN.PEN. SQ SCH (21:00)
[2018-11-19] MEDS: DOCUSATE SODIUM 100 MG CAPSULE. PO SCH (21:39)
[2018-11-19] MEDS: OMEGA-3 FATTY ACIDS/FISH OIL 1,000 MG CAPSULE. PO SCH (21:40)
[2018-11-19 23:00] VITALS: BP 166/52
[2018-11-20] MEDS ORDERED: ACETAMINOPHEN 325 MG TABLET. PO PRN (00:15)
[2018-11-20 03:42] VITALS: BP 100/44
[2018-11-20 04:59] LABS: CALCIUM 9.3 mg/dL (8.5-10.1); CREATININE 1.5 mg/dL (0.6-1.0); GFR 33.3; POTASSIUM 3.9 mmol/L (3.5-5.1)
[2018-11-20 07:00] VITALS: BP 129/56
[2018-11-20] MEDS ORDERED: INSULIN LISPRO 300 UNITS/3 ML INSULN.PEN. SQ SCH (08:00)
[2018-11-20] MEDS: CARVEDILOL 6.25 MG TABLET. PO SCH (08:43)
[2018-11-20] MEDS: DOCUSATE SODIUM 100 MG CAPSULE. PO SCH (08:43)
[2018-11-20] MEDS: OMEGA-3 FATTY ACIDS/FISH OIL 1,000 MG CAPSULE. PO SCH (08:43)
[2018-11-20] MEDS ORDERED: CITALOPRAM 20 MG TABLET. PO SCH (09:00)
[2018-11-20] MEDS ORDERED: amLODIPine BESYLATE 10 MG TABLET PO SCH ×2 (09:00→12:00)
[2018-11-20] MEDS ORDERED: CHOLECALCIFEROL (VITAMIN D3) 1,000 UNIT TABLET PO SCH (09:00)
[2018-11-20] MEDS ORDERED: FUROSEMIDE 40 MG TABLET. PO SCH (09:00)
[2018-11-20] MEDS ORDERED: GLIMEPIRIDE 2 MG TABLET. PO SCH (09:00)
[2018-11-20] MEDS ORDERED: LISINOPRIL 20 MG TABLET PO SCH (09:00)
[2018-11-20] MEDS ORDERED: MULTIVITAMIN I-VITE TABLET. PO SCH (09:00)
[2018-11-20] MEDS ORDERED: FAMOTIDINE 20 MG TABLET. PO SCH (09:00)
[2018-11-20] MEDS ORDERED: ASPIRIN CHEWABLE 81 MG TABLET. PO SCH (09:00)
--- NOTE | 2018-11-20 10:03 | PDOC ---
TERESA SHAFFER CHIEF SUBSTATION OPERATOR 11/20/18 1003: CARDIO Progress Notes Date and Time Date of Service 11/20/2018 Time of Evaluation 0940 Subjective Subjective: No Chest Pain, No shortness of breath, No Palpitations Vitals Vitals Vital Signs Date Time Temp Pulse Resp B/P (MAP) Pulse Ox O2 Delivery O2 Flow Rate FiO2 11/20/18 08:43 71 129/56 11/20/18 08:00 Room Air 11/20/18 07:00 98.0 18 95 98.0 Weight Weight [ ] Input and Output Intake and Output Intake and Output 11/20/18 07:00 Intake Total 500 ml Output Total 1300 ml Balance -800 ml Intake Oral 500 ml Output Urine Total 1300 ml Laboratory Labs Laboratory Tests Test 11/19/18 12:35 11/19/18 14:20 11/19/18 15:00 11/19/18 16:56 White Blood Count 5.8 x10^3/uL (4.0-11.0) Red Blood Count 4.40 x10^6/uL (3.50-5.40) Hemoglobin 12.8 g/dL (12.0-15.5) Hematocrit 38.8 % (36.0-47.0) Mean Corpuscular Volume 88 fL (79-100) Mean Corpuscular Hemoglobin 29 pg (25-35) Mean Corpuscular Hemoglobin Concent 33 g/dL (31-37) Red Cell Distribution Width 14.1 % (11.5-14.5) Platelet Count 170 x10^3/uL (140-400) Neutrophils (%) (Auto) 68 % (31-73) Lymphocytes (%) (Auto) 22 % (24-48) Monocytes (%) (Auto) 8 % (0-9) Eosinophils (%) (Auto) 2 % (0-3) Basophils (%) (Auto) 1 % (0-3) Neutrophils # (Auto) 3.9 x10^3uL (1.8-7.7) Lymphocytes # (Auto) 1.2 x10^3/uL (1.0-4.8) Monocytes # (Auto) 0.5 x10^3/uL (0.0-1.1) Eosinophils # (Auto) 0.1 x10^3/uL (0.0-0.7) Basophils # (Auto) 0.0 x10^3/uL (0.0-0.2) Prothrombin Time 12.4 SEC (11.7-14.0) Prothromb Time International Ratio 1.0 (0.8-1.1) Sodium Level 142 mmol/L (136-145) Potassium Level 4.8 mmol/L (3.5-5.1) Chloride Level 107 mmol/L (98-107) Carbon Dioxide Level 23 mmol/L (21-32) Anion Gap 12 (6-14) Blood Urea Nitrogen 34 mg/dL (7-20) Creatinine 1.4 mg/dL (0.6-1.0) Estimated GFR (Cockcroft-Gault) 36.1 BUN/Creatinine Ratio 24 (6-20) Glucose Level 124 mg/dL (70-99) Calcium Level 9.6 mg/dL (8.5-10.1) Magnesium Level 2.1 mg/dL (1.8-2.4) Total Bilirubin 0.4 mg/dL (0.2-1.0) Aspartate Amino Transf (AST/SGOT) 24 U/L (15-37) Alanine Aminotransferase (ALT/SGPT) 15 U/L (14-59) Alkaline Phosphatase 75 U/L (46-116) Creatine Kinase 79 U/L (26-192) Creatine Kinase MB (Mass) 1.2 ng/mL (0.0-3.6) Creatine Kinase MB Relative Index 1.5 % (0-4) Troponin I Quantitative < 0.017 ng/mL (0.000-0.055) < 0.017 ng/mL (0.000-0.055) JI-Epb-J-Type Natriuretic Peptide 395 pg/mL (0-449) Total Protein 6.8 g/dL (6.4-8.2) Albumin 3.5 g/dL (3.4-5.0) Albumin/Globulin Ratio 1.1 (1.0-1.7) Lipase 121 U/L (73-393) Urine Collection Type Void Urine Color Yellow Urine Clarity Clear Urine pH 5.5 Urine Specific [place] 1.010 Urine Protein Negative mg/dL (NEG-TRACE) Urine Glucose (UA) Negative mg/dL (NEG) Urine Ketones (Stick) Negative mg/dL (NEG) Urine Blood Negative (NEG) Urine Nitrite Negative (NEG) Urine Bilirubin Negative (NEG) Urine Urobilinogen Dipstick 0.2 mg/dL (0.2 mg/dL) Urine Leukocyte Esterase Moderate (NEG) Urine RBC 0 /HPF (0-2) Urine WBC 5-10 /HPF (0-4) Urine Squamous Epithelial Cells Mod /LPF Urine Bacteria Moderate /HPF (0-FEW) Glucose (Fingerstick) 80 mg/dL (70-99) Test 11/19/18 20:47 11/19/18 21:07 11/20/18 04:30 11/20/18 07:31 Troponin I Quantitative < 0.017 ng/mL (0.000-0.055) Glucose (Fingerstick) 128 mg/dL (70-99) 86 mg/dL (70-99) Sodium Level 143 mmol/L (136-145) Potassium Level 3.9 mmol/L (3.5-5.1) Chloride Level 108 mmol/L (98-107) Carbon Dioxide Level 25 mmol/L (21-32) Anion Gap 10 (6-14) Blood Urea Nitrogen 34 mg/dL (7-20) Creatinine 1.5 mg/dL (0.6-1.0) Estimated GFR (Cockcroft-Gault) 33.3 Glucose Level 72 mg/dL (70-99) Calcium Level 9.3 mg/dL (8.5-10.1) Triglycerides Level 98 mg/dL (0-150) Cholesterol Level 121 mg/dL (0-200) LDL Cholesterol, Calculated 61 mg/dL (0-100) VLDL Cholesterol, Calculated 20 mg/dL (0-40) Non-HDL Cholesterol Calculated 81 mg/dL (0-129) HDL Cholesterol 40 mg/dL (40-60) Cholesterol/HDL Ratio 3.0 Physical Exam HEENT: Neck Supple W Full Motion Chest: Symmetric LUNGS: Clear to Auscultation Heart: S1S2, RRR (Sr no ectopies), murmurs (daitolic murmur 2/6 to erb) Abdomen: Soft N/T Extremities: No Edema, No Calf Tenderness Neurology: alert, oriented, follow commands Assessment Assessment 1. Atypical CP: More of left shoulder and neck pain. suspect MSK. EF amd WM nml with moderate AI 2. Nontraumatic mechanical fall: noted with hyperextension of neck but currently no ROM pain or limitations. Defer to PCP 3. CAD: past stents. 2018 MPI as noted above 4. HTN: better controlled 5. HLP; on goal 6. DM2/DPN 7. PAD: clinically stable, no wounds 8. CKD: possibly stage 3. 9. carotid artery disease: past L CEA, doppler show mild to mod to left carotid and moderate disease to right. 10. 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 Recommendations 1. Follow up in office as scheduled 2. Continue with secondary prevention. ASA. Continue BP meds 3. HBPM bid x1 wk and call if outside parameters ELADIO WEINSTEIN MD 11/20/18 1042: CARDIO Progress Notes Assessment Assessment Patient seen and examined. Agree with OLERICULTURIST's assessment and plan. Chest pain with atypical features and most probably musculoskeletal Myocardial infarction ruled out 2-D echo showed normal LV function without any wall motion abnormalities Recent stress test did not show any significant ischemia Follow-up with our office as scheduled TERESA SHAFFER APRN November 20, 2018 10:03 ELADIO WEINSTEIN MD November 20, 2018 10:42
--- NOTE | 2018-11-20 10:09 | NUR ---
SS following for discharge planning. SS reviewed pt chart. Pt is from home with spouse and is currently on room air. No discharge needs noted at this time. SS will continue to follow for discharge planning.
--- NOTE | 2018-11-20 10:52 | PDOC3 ---
[facility]-Discharge Summary Date of Admission: Date of Admission: November 19, 2018 Date of Discharge: Date of Discharge: November 20, 2018 Admission Diagnosis: Admitting Diagnosis: Chest pain Discharge Diagnosis: Discharge Diagnosis: Atypical chest pain musculoskeletal versus GERD Consults: Consults: Cardiology Procedures: Procedures: None Hospital Course: Hospital Course: Patient is a pleasant middle-aged female who presented with chest pain We admitted the patient and consult cardiology we did cardiac monitoring serial enzymes still EKGs This morning I saw and examined the patient her heart tones were normal her lungs were clear she was doing great smiling Cardiology cleared the patient for discharge we plan to discharge with close outpatient follow-up Disposition: Disposition/Orders: D/C to Home Activity: Activity: Resume previous activity Diet: Diet: Cardiac Medications: Home Meds Reported Medications Docusate Sodium (COLACE) 100 Mg Capsule, 1 CAP PO BID for , #30 CAP 11/19/18 Cholecalciferol (Vitamin D3) (VITAMIN D3) 2,000 Unit Tablet, 2000 UNIT PO DAILY for , TAB 11/19/18 Mv-Mn/FA/Vit K/Lycop/Lut/Zeaxa (Ocuvite Eye + Multi Tablet) 1 Each Tablet, 1 EACH PO DAILY for , TAB 11/19/18 Gabapentin (GABAPENTIN ) 300 Mg Capsule, 300 MG PO HS for NEUROGENIC PAIN, CAP 11/19/18 Atorvastatin Calcium (ATORVASTATIN CALCIUM) 40 Mg Tablet, 40 MG PO HS for FOR CHOLESTEROL, #30 TAB 0 Refills 11/19/18 Amonate-3 Fatty Acids/Fish Oil (FISH OIL 1,000 MG CAPSULE) 1 Each Capsule, 1 EACH PO BID for , CAP 11/19/18 Lisinopril (LISINOPRIL) 20 Mg Tablet, 1 TAB PO DAILY, #30 TAB 5 Refills 11/25/17 Furosemide (FUROSEMIDE) 40 Mg Tablet, 1 TAB PO QODAY, #30 TAB 5 Refills 03/13/16 Amlodipine Besylate (AMLODIPINE BESYLATE) 5 Mg Tablet, 5 MG PO DAILY for , TAB 03/13/16 Glimepiride (GLIMEPIRIDE) 1 Mg Tablet, 0.5 MG PO DAILY, #30 TAB 5 Refills 08/17/15 Insulin Glargine,Hum.rec.anlog (LANTUS) 100 Unit/1 Ml Vial, 18 UNIT SQ QHS, VIAL 01/04/15 Citalopram Hydrobromide (CITALOPRAM HBR) 20 Mg Tablet, 20 MG PO DAILY for 11/12/13 Aspirin (LAWRENCE CHEWABLE) 81 Mg Tab.chew, 81 MG PO, TAB.CHEW 09/13/13 Multivit With Calcium,Iron,Min (WOMEN'S ONE DAILY) 1 Each Tablet, 1 EACH PO 09/13/13 Carvedilol (CARVEDILOL ) 12.5 Mg Tablet, 6.25 MG PO BID 09/13/13 Ranitidine Hcl (RANITIDINE HCL) 300 Mg Capsule, 300 MG PO DAILY for 09/13/13 Discontinued Reported Medications Duloxetine Hcl (CYMBALTA) 20 Mg Capsule.dr, 20 MG PO DAILY, CAP 11/25/17 Amonate-3 Fatty Acids (FISH OIL) 500 Mg Capsule.dr, 3600 MG PO 09/13/13 Pravastatin Sodium (PRAVASTATIN SODIUM) 40 Mg Tablet, 40 MG PO 09/13/13 Lorazepam (LORAZEPAM) 0.5 Mg Tablet, 0.5 MG PO BID for anxiety MDD 1mg 09/13/13 Scheduled Amlodipine Besylate (Amlodipine Besylate), 5 MG PO DAILY, (Reported) Atorvastatin Calcium (Atorvastatin Calcium), 40 MG PO HS, (Reported) Carvedilol (Carvedilol ), 6.25 MG PO BID, (Reported) Cholecalciferol (Vitamin D3) (Vitamin D3), 2,000 UNIT PO DAILY, (Reported) Citalopram Hydrobromide (Citalopram Hbr), 20 MG PO DAILY, (Reported) Docusate Sodium (Colace), 1 CAP PO BID, (Reported) Furosemide (Furosemide), 1 TAB PO QODAY, (Reported) Gabapentin (Gabapentin ), 300 MG PO HS, (Reported) Glimepiride (Glimepiride), 0.5 MG PO DAILY, (Reported) Insulin Glargine,Hum.rec.anlog (Lantus), 18 UNIT SQ QHS, (Reported) Lisinopril (Lisinopril), 1 TAB PO DAILY, (Reported) Mv-Mn/FA/Vit K/Lycop/Lut/Zeaxa (Ocuvite Eye + Multi Tablet), 1 EACH PO DAILY, (Reported) Amonate-3 Fatty Acids/Fish Oil (Fish Oil 1,000 Mg Capsule), 1 EACH PO BID, (Reported) Ranitidine Hcl (Ranitidine Hcl), 300 MG PO DAILY, (Reported) Miscellaneous Medications Aspirin (Lawrence Chewable), 81 MG PO, (Reported) Multivit With Calcium,Iron,Min (Women's One Daily), 1 EACH PO, (Reported) Discontinued Medications Duloxetine Hcl (Cymbalta), 20 MG PO DAILY, (Reported) Lorazepam (Lorazepam), 0.5 MG PO BID, (Reported) Amonate-3 Fatty Acids (Fish Oil), 3,600 MG PO, (Reported) Discontinued Reason: Prescription changed Pravastatin Sodium (Pravastatin Sodium), 40 MG PO, (Reported) Total Time: Total Time: 31 minutes TAYO HECK III DO November 20, 2018 10:52
[2018-11-20 11:00] VITALS: BP 158/64
--- NOTE | 2018-11-20 11:42 | NUR ---
Discharge Note: NAZ GOMEZ Discharge instructions and home medications reviewed with Patient. Follow up information reviewed with patient. All questions have been answered and understanding verbalized. The following instructions and handouts were given: Chest pain, and hypertension. Discontinued lines and drains: Peripheral IV intact. Patient discharged to Home or Self Care with Spouse via Wheelchair
== END 2018-11-20 11:30 | disposition home or self-care (01) ==
LOC: ER 11:44 → 2 NORTH 14:23
PROVIDERS: ADMIT Internal Medicine; ATTEND Internal Medicine
DX: R07.89 Other chest pain (principal); F41.9 Anxiety disorder, unspecified; I25.10 Atherosclerotic heart disease of native coronary artery without angina pectoris; F32.9 Major depressive disorder, single episode, unspecified; K21.9 Gastro-esophageal reflux disease without esophagitis; N39.0 Urinary tract infection, site not specified; E11.22 Type 2 diabetes mellitus with diabetic chronic kidney disease; I12.9 Hypertensive chronic kidney disease with stage 1 through stage 4 chronic kidney disease, or unspecified chronic kidney disease; N18.4 Chronic kidney disease, stage 4 (severe); I49.9 Cardiac arrhythmia, unspecified; M25.512 Pain in left shoulder; M25.511 Pain in right shoulder; K44.9 Diaphragmatic hernia without obstruction or gangrene; M85.80 Other specified disorders of bone density and structure, unspecified site; E11.51 Type 2 diabetes mellitus with diabetic peripheral angiopathy without gangrene; H26.9 Unspecified cataract; S42.001K Fracture of unspecified part of right clavicle, subsequent encounter for fracture with nonunion; Z82.49 Family history of ischemic heart disease and other diseases of the circulatory system; E78.00 Pure hypercholesterolemia, unspecified; E11.40 Type 2 diabetes mellitus with diabetic neuropathy, unspecified; N17.9 Acute kidney failure, unspecified; Z90.710 Acquired absence of both cervix and uterus; Z95.5 Presence of coronary angioplasty implant and graft
CPT/HCPCS: 36415; 71045; 80048; 80053; 80061; 81001; 82553; 82962; 83690; 83735; 83880; 84484; 85025; 85610; 87086; 93005; 93306; 93880; 96372; 96374; 99284; G0378; J0360; J1815; G0379

== ENCOUNTER → 2018-12-29 | Outpatient (CLI) | payer MEDICARE ==
[~2018-12-29] MED LIST changes: +ATOR40TA59 PO; +CHOL200027 PO; +DOCU-109 PO; +MV-M1TAB36 PO; +OMEG1CAP6 PO
--- NOTE | 2018-12-29 09:29 | KCIC ---
MRI Thoracic Spine without contrast History: Thoracic pain for 2 weeks, inferior thoracic spine pain Technique: Multiplanar, multi sequential noncontrast MR imaging was performed of the thoracic spine. Comparison: None Findings: There is a recent T9 compression fracture with associated marrow edema signified by STIR hyperintense and T1 hypointense signal. The is mild osseous retropulsion inferiorly without significant spinal stenosis, mild indentation upon the ventral thecal sac. There is a larger cleft of fluid along the inferior likely compressed endplate. Thoracic vertebral body stature at other levels is maintained. There is accentuation of thoracic kyphosis. AP alignment at other levels is overall maintained. Thoracic cord caliber is within normal limits without focal or expansile signal abnormality. There is multilevel posterior epidural lipomatosis variably throughout thoracic spine greatest about mid thoracic levels with mild attenuation of the thecal sac, AP thecal sac at T7-8 measured about 1.1 cm. There is small hemangioma of the T10 vertebral body. Thoracic neural foramina are not significantly narrowed, minimal narrowing on the left at T9-10 in part from facet degenerative change. Intervertebral disc spaces are relatively preserved, mild disc desiccation centered about mid thoracic levels and also T11-12. Visualized left kidney is atrophic, small 0.7 cm T2 hyperintense lesion left kidney likely cyst. There is cervical degenerative disc disease greatest C4-5 and C6-7. There is degree of inferior cervical spinal stenosis poorly characterized on this exam. Impression: 1. There is a recent T9 compression fracture with associated marrow edema, minimal osseous retropulsion inferiorly without significant spinal stenosis. 2. There is cervical degenerative disc disease and degree of inferior cervical spinal stenosis poorly characterized on this exam. Electronically signed by: Hira Monaco MD (12/29/2018 9:26 AM) [facility]
== END | disposition home or self-care (01) ==
LOC: KCIC MRI 07:45
PROVIDERS: ATTEND Internal Medicine Cardiovascular Disease
DX: M48.54XA Collapsed vertebra, not elsewhere classified, thoracic region, initial encounter for fracture (principal); M50.323 Other cervical disc degeneration at C6-C7 level; M40.204 Unspecified kyphosis, thoracic region; D18.09 Hemangioma of other sites; M48.02 Spinal stenosis, cervical region; N26.1 Atrophy of kidney (terminal)
CPT/HCPCS: 72146

== ENCOUNTER → 2019-01-04 | Outpatient (CLI) | payer MEDICARE ==
[~2019-01-04] MED LIST changes: +IOHEXOL 180 MG/ML 10 ML VIAL. ONE; +methylPREDNISolone ACETATE 40 MG/ML VIAL. ONE; +methylPREDNISolone ACETATE 80 MG/ML VIAL. ONE
--- NOTE | 2019-01-04 21:54 | PAIN ---
DATE OF SERVICE: 01/04/2019 INITIAL CONSULTATION FOR PAIN CLINIC CHIEF COMPLAINT: Mid upper back pain. HISTORY OF PRESENT ILLNESS: The patient is an 83-year-old female who presents with history of pain in the mid upper back for about 1 month, not a result of any injury or action that she is aware of. It started hurting one morning and has become very severe. She had appointment with her flight mechanic, Dr. Prince and was describing the pain as 10, he made the referral to see us here. The patient reports significant pain with all motions, changing positions, getting up from a seating position, standing, sitting for too long, has difficulty sleeping at night secondary to pain, wakes her from sleep frequently, but she is taking some extra strength Tylenol, which does decrease the pain. She has not had any formal physical therapies or other treatments at this time. She did have an MRI scan of the thoracic spine shows recent T9 compression fracture with associated marrow edema and minimal osseous retropulsion inferiorly without significant spinal stenosis and with some degenerative change in the remainder of the thoracic spine as well as some of the cervical spine. The patient reports it is constant, aching, sharp, shooting, radiates bilaterally in right and left of the mid back towards the inferior aspect of the posterior shoulders and the shoulder blades, worse with changing position, lifting items, bending with her upper back or sitting for prolonged periods of pressure on her mid back. The patient reports no loss of motor function. No bowel or bladder control issues. Does not affect her ability to walk or get around, but the pain is limiting her with sitting and waking her from sleep occasionally, but not every night, Tylenol is helping. She has tried naproxen, which did not help significantly and the Tylenol does better for her. PAST MEDICAL HISTORY: Includes diabetes, insulin-dependent; hypertension; irregular heart rhythm; and coronary artery disease. PREVIOUS SURGERIES: Include cataract extractions, hysterectomy, heart stent placement, cholecystectomy, tonsillectomy, and kidney stone extractions. CURRENT MEDICATIONS: Include insulin Lantus and also sliding scale, glimepiride, Lasix, carvedilol, aspirin, lisinopril, multivitamins, atorvastatin, gabapentin, docusate, vitamin D3, omega fatty acids, citalopram, amlodipine, and Zantac. ALLERGIES: The patient is allergic to CODEINE. FAMILY HISTORY: Significant for diabetes, heart disease, and arthritis. SOCIAL HISTORY: The patient does not drink alcohol, does not smoke, does not use any illegal, illicit, or recreational drugs. He is , lives with his spouse, lives locally in [place], [place]. The patient's spouse has dementia and she is his primary caregiver. REVIEW OF SYSTEMS: The patient's review of systems is positive for those items mentioned in history of present illness. All systems reviewed and otherwise negative. It is complete, full, and well documented on the patient's chart. PHYSICAL EXAMINATION: VITAL SIGNS: The patient's blood pressure is 129/72, pulse 58, respirations 18, temperature 98.2 degrees Fahrenheit, height is 5 feet 1 inch, weight is 131 pounds. GENERAL: The patient is awake, alert, oriented, appropriate, very pleasant demeanor, and the patient is accompanied by her and her daughter. HEENT: Shows normocephalic, atraumatic. Extraocular movements intact and symmetrical. Oral cavity, mucous membranes are moist and pink. Dentition is intact. NECK: Shows anterior throat supple without palpable lymphadenopathy noted. Swallow reflex symmetrical. CHEST: Shows normal with inspection. Breath sounds are clear to auscultation bilaterally. HEART: Shows S1, S2 clear. No murmurs auscultated. ABDOMEN: Soft, nontender, nondistended. No palpable organomegaly is noted. No rebound or guarding demonstrated. BACK: Shows spine grossly in the midline. Slight exaggeration of thoracic kyphosis, some flattening of lumbar lordotic curvature. Thoracic paraspinous muscle shows symmetrical on inspection, with palpation shows some moderate tenderness to significant tenderness over the spinous processes about the T9-T10 distribution, with some associated radiation, both laterally, right and left with posterior palpation of the spinous process as well as the paraspinous musculature in this region above and below, this shows no radiation and no specific significant tenderness. Lumbar paraspinous muscle shows symmetrical on inspection, with palpation shows no significant tenderness as well. EXTREMITIES: The patient's upper extremities show deep tendon reflexes 2+ in biceps and triceps tendons. Motor exam is strong with career representative strength rated at 5/5 as is bicep and tricep flexion. Peripheral pulses are 2+ radial distribution. No peripheral edema is noted. Lower extremities show deep tendon reflexes 1+ in the patellar and tendo calcaneus tendons are symmetrical. Peripheral pulses are 1+ posterior tibial. Motor exam is 5/5 dorsiflexion, extension, quadriceps, and hamstring flexion. SKIN: Shows warm and dry, good turgor. No edema. No sores, rashes, or bruising throughout. IMPRESSION: 1. This is an 83-year-old female with 1 month history of increasing pain, mid upper back consistent with a compression fracture, without injury or accident. 2. MRI scan of thoracic spine as noted with T9 compression demonstrated. 3. Hypertension. 4. Diabetes. PLAN: Options were discussed with the patient and her family including conservative medical management, physical therapy, interventional techniques, and she would like to pursue interventional techniques. Discussed a thoracic epidural steroid injection using description as well as anatomical models to describe the procedure. Risks were then discussed including, but not limited to bleeding, infection, possibility of epidural hematoma, subsequent neurologic compromise, dural puncture, headaches, spinal cord and/or nerve damage, side effects of steroid medication, and poor results regarding pain control. The patient understands and wished to proceed. The patient will return to clinic in approximately 2 weeks for followup. She was counseled as to return appointment, activity level, and side effects to be aware of. We also made referral for evaluation with Interventional Radiology to determine appropriateness for potential vertebroplasty or kyphoplasty with T9 compression fracture. The patient will follow up once this is completed as well and we will evaluate her at that time. DIAGNOSES: Compression fracture at T9 with thoracic degenerative disk disease. PROCEDURE: Thoracic epidural steroid injection T9-T10 level using C-arm fluoroscopic guidance under sterile prep and drape using local anesthetic. MEDICATION INJECTED: A total of 120 mg Depo-Medrol plus 10 mL of preservative-free normal saline and 2 mL of contrast. CONDITION AT DISCHARGE: Stable. The patient did have a slight headache after the procedure, but resolved after Tylenol and rest. DISPOSITION: Discharge in stable condition under her own power to home. LESLEY VICTOR MD DR: ALF/guido JOB#: [id number] / [id number] GO Flores MD
== END ==
LOC: PNCL 13:55
PROVIDERS: ATTEND Anesthesiology
DX: M51.34 Other intervertebral disc degeneration, thoracic region (principal); M48.54XA Collapsed vertebra, not elsewhere classified, thoracic region, initial encounter for fracture; M54.89 Other dorsalgia; I10 Essential (primary) hypertension; E11.9 Type 2 diabetes mellitus without complications; Z79.4 Long term (current) use of insulin; I25.10 Atherosclerotic heart disease of native coronary artery without angina pectoris; Z79.82 Long term (current) use of aspirin; Z79.899 Other long term (current) drug therapy; Z88.6 Allergy status to analgesic agent; Z90.49 Acquired absence of other specified parts of digestive tract; Z90.710 Acquired absence of both cervix and uterus; Z95.5 Presence of coronary angioplasty implant and graft; Z98.41 Cataract extraction status, right eye; Z98.42 Cataract extraction status, left eye; Z98.890 Other specified postprocedural states
CPT/HCPCS: 62321; J1030; J1040; Q9965

== ENCOUNTER 2019-01-18 09:51 | Outpatient (CLI) | payer MEDICARE ==
[2019-01-18] VITALS (10 sets, daily range): BP systolic 122–181; BP diastolic 50–83
[~2019-01-18] VITALS: Ht 154.9 cm; Wt 58.5 kg
[~2019-01-18 09:51] MED LIST changes: -IOHEXOL 180 MG/ML 10 ML VIAL. ONE; -methylPREDNISolone ACETATE 40 MG/ML VIAL. ONE; -methylPREDNISolone ACETATE 80 MG/ML VIAL. ONE
[2019-01-18 10:35] LABS: BASO % 0 % (0-3); EOS # 0.1 x10^3/uL (0.0-0.7); EOS % 1 % (0-3); HEMATOCRIT 30.2 % (36.0-47.0); HEMOGLOBIN 9.9 g/dL (12.0-15.5); LYMPH % 19 % (24-48); MEAN CORPUSCULAR HEMOGLOBIN 29 pg (25-35); MEAN CORPUSCULAR HGB CONC 33 g/dL (31-37); MEAN CORPUSCULAR VOLUME 88 fL (79-100); MONO # 0.6 x10^3/uL (0.0-1.1); MONO % 12 % (0-9); NEUT # 3.4 x10^3uL (1.8-7.7); NEUT % 68 % (31-73); PLATELET COUNT 204 x10^3/uL (140-400); RED BLOOD COUNT 3.44 x10^6/uL (3.50-5.40); RED CELL DISTRIBUTION WIDTH 15.6 % (11.5-14.5); WHITE BLOOD COUNT 5.1 x10^3/uL (4.0-11.0)
[2019-01-18 10:47] LABS: CALCIUM 9.1 mg/dL (8.5-10.1); GFR 23.9; POTASSIUM 5.6 mmol/L (3.5-5.1)
[2019-01-18 10:56] LABS: PROTHROMBIN TIME PATIENT 13.6 SEC (11.7-14.0)
[2019-01-18] MEDS ORDERED: LIDOCAINE WITH 8.4% SOD BICARB 3 ML DISP.SYRIN. ONE (11:08)
[2019-01-18] MEDS ORDERED: IOHEXOL 240 MG/ML 50ML VIAL. ONE (11:09)
[2019-01-18] MEDS ORDERED: LIDOCAINE WITH 8.4% SOD BICARB 3 ML DISP.SYRIN. IJ ONE (11:15)
[2019-01-18] MEDS ORDERED: IOHEXOL 240 MG/ML 50ML VIAL. IJ ONE (11:15)
[2019-01-18] MEDS ORDERED: MIDAZOLAM HCL/PF 2 MG/2 ML VIAL. IV ONE (11:15)
[2019-01-18] MEDS ORDERED: fentaNYL PF VIAL 100 MCG/2 ML VIAL IV ONE (11:15)
[2019-01-18] MEDS ORDERED: fentaNYL PF VIAL 100 MCG/2 ML VIAL ONE (11:20)
[2019-01-18] MEDS ORDERED: MIDAZOLAM HCL/PF 2 MG/2 ML VIAL. ONE (11:20)
[2019-01-18] MEDS ORDERED: CONTRAST GIVEN. MC PRN (11:30)
[2019-01-18 11:31] LABS: % BANDS 7 % (0-9); % EOS 3 % (0-5); % LYMPHS 25 % (24-48); % MONOS 12 % (0-10); % MYELOS 3 % (0-0); % SEGS 50 % (35-66); PLT ESTIMATE ADEQUATE (ADEQUATE)
--- NOTE | 2019-01-18 12:46 | PDOC ---
Provider Note Provider Note T9 vertebroplasty was performed wo complication. Patient tolerated well, and was stable throughout. Post recovery instructions were given to contact primary physician and inform them of elevated Cr and Bun, and mildly increased potassium. This was felt to be in part pre renal and 500cc NS was given. KAVITHA WATKINS MD Jan 18, 2019 12:46
[2019-01-18] MEDS ORDERED: ONDANSETRON PF 4 MG/2 ML VIAL. ONE (13:00)
[2019-01-18] MEDS ORDERED: ONDANSETRON PF 4 MG/2 ML VIAL. IV ONE (13:30)
--- NOTE | 2019-01-18 14:07 | RAD ---
Fluoroscopically guided vertebroplasty, T9 Indication:Severe back pain secondary to T9 compression fracture. Clinically fracture is pathologic, secondary to mechanism of injury. There is severe pain refractory to conservative treatment measures. Fluoro time:fluoro time: 11.2 min Dose area product: 15.4 Gycm2 Moderate sedation: The patient was appropriately monitored by a qualified independent observer throughout the course of the moderate sedation. Jalm-dh-qibr sedation time:30 minutes Consent: The risks and benefits of the procedure were discussed with the patient. Informed consent was obtained. The patient was brought to the fluoroscopy suite and placed in the prone position. A timeout procedure was performed. Preprocedural antibiotics were administered. Procedure: The overlying skin was prepped and draped in the usual sterile fashion. All elements of maximal sterile barrier technique including the use of a cap, mask, sterile gown, sterile gloves, large sterile sheet, appropriate hand hygiene, and 2% chlorhexidine for cutaneous antisepsis (or acceptable alternative antiseptic per current guidelines) were followed for this procedure. Using a left transpedicular approach, and direct fluoroscopic guidance, a trocar needle was advanced to the posterior third of the targeted vertebral body. A curved cement delivery needle was advanced into the contralateral vertebral body. Contrast opacified polymethylmethacrylate was then very slowly and carefully introduced through the vertebral augmentation needle, using strict fluoroscopic control. Once adequate filling had been achieved the needles were removed and manual pressure was held. No significant extravasation or complication was identified. Sterile dressing was applied. Patient tolerated the procedure well, without apparent complication. Impression: Fluoroscopically guided vertebroplasty
--- NOTE | 2019-01-18 14:54 | NUR ---
Discharge Note: NAZ GOMEZ Discharge instructions and discharge home medications reviewed with Patient and a copy given. All questions have been answered and understanding verbalized. The following instructions and handouts were given: Vertebroplasty after care and moderate sedation. Discontinued lines and drains: Right hand IV removed with tip intact. Patient discharged to home with family via wheelchair in private car. Patient discharged to home at this time in no apparent distress.
[2019-01-19] MEDS ORDERED: DULO20CA PO (07:16)
== END 2019-01-18 14:55 | disposition home or self-care (01) ==
LOC: INTRAD 09:51
PROVIDERS: ATTEND Anesthesiology
DX: M48.54XA Collapsed vertebra, not elsewhere classified, thoracic region, initial encounter for fracture (principal)
CPT/HCPCS: 22510; 99152; 99153; C1713; C1725; J0690; J2250; J2405; J3010; 36415; 80048; 82962; 85007; 85025; 85610

== ENCOUNTER 2019-05-20 15:46 | Emergency (ER) | payer MEDICARE ==
[~2019-05-20] VITALS: Ht 154.9 cm; Wt 54.0 kg
[~2019-05-20 15:46] MED LIST changes: +FURO-69 PO; -GLIM1TAB2 PO; +GLIM1TAB3 PO; +IPRA3AMP29 NEB; +LISI2.5T PO; +TICA90TA PO; +TRAM50TA PO
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
[2019-05-20] MEDS ORDERED: ONDANSETRON PF 4 MG/2 ML VIAL. IV ONE (16:15)
[2019-05-20] MEDS ORDERED: MORPHINE SULFATE 4 MG/ML VIAL. IV ONE (16:15)
[2019-05-20 16:56] LABS: BASO % 1 % (0-3); EOS # 0.1 x10^3/uL (0.0-0.7); EOS % 2 % (0-3); HEMATOCRIT 32.4 % (36.0-47.0); HEMOGLOBIN 10.5 g/dL (12.0-15.5); LYMPH # 1.3 x10^3/uL (1.0-4.8); LYMPH % 26 % (24-48); MEAN CORPUSCULAR HEMOGLOBIN 27 pg (25-35); MEAN CORPUSCULAR HGB CONC 33 g/dL (31-37); MEAN CORPUSCULAR VOLUME 83 fL (79-100); MONO # 0.5 x10^3/uL (0.0-1.1); MONO % 10 % (0-9); NEUT # 3.2 x10^3/uL (1.8-7.7); NEUT % 62 % (31-73); PLATELET COUNT 199 x10^3/uL (140-400); RED CELL DISTRIBUTION WIDTH 15.6 % (11.5-14.5); WHITE BLOOD COUNT 5.2 x10^3/uL (4.0-11.0)
[2019-05-20 17:03] LABS: CALCIUM 9.7 mg/dL (8.5-10.1); CREATININE 1.4 mg/dL (0.6-1.0); GFR 36.1; POTASSIUM 4.5 mmol/L (3.5-5.1)
[2019-05-20 17:07] LABS: PROTHROMBIN TIME PATIENT 13.4 SEC (11.7-14.0)
[2019-05-20 17:10] LABS: ALBUMIN 3.6 g/dL (3.4-5.0); TOTAL BILIRUBIN 0.4 mg/dL (0.2-1.0); TOTAL PROTEIN 7.2 g/dL (6.4-8.2)
--- NOTE | 2019-05-20 17:37 | RAD ---
Examination: SCAPULA LEFT, HUMERUS RIGHT, SHOULDER 2+V RIGHT, PORTABLE CHEST 1V History: Fall, pain Comparison/Correlation: 01/27/2019 portable frontal view of the chest Findings: Portable upright frontal view of the chest was obtained. 3 images of the right shoulder were obtained. 2 images of the left scapula were provided. 2 images right humerus provided. Heart size is borderline. No pneumothorax. Mild right apical pleural thickening noted. No definite focal infiltrate. Subtle interstitial thickening lung garcia with some diffuse exam. Mild right acromioclavicular joint spurring noted. Glenohumeral joints are unremarkable for the patient's age and symmetric in appearance. Left scapula is unremarkable. Right humerus is intact. Upright quadrant surgical clips are present. Impression: No infiltrate. No right humeral, right shoulder region, or left scapular fracture. Bony thorax is grossly unremarkable although further evaluation should be considered if fracture is a persistent concern. Electronically signed by: Young Camarena MD (05/20/2019 5:34 PM) [facility]
[2019-05-20 18:05] VITALS: BP 165/68
--- NOTE | 2019-05-21 09:04 | RAD ---
EXAM: Right knee, 3 views. HISTORY: Pain. Fall. COMPARISON: None. FINDINGS: 3 views of the right knee are obtained. There is no fracture, dislocation or subluxation. There is no joint effusion. There is anterior knee and proximal deluna soft tissue swelling likely due to a hematoma. IMPRESSION: Significant anterior knee and proximal deluna soft tissue swelling, likely due to a hematoma given a history of recent fall. No underlying fracture is seen. Electronically signed by: Zulma Gamez MD (05/21/2019 9:01 AM) [facility]
== END 2019-05-20 18:17 | disposition home or self-care (01) ==
LOC: ER 15:46
DX: S80.01XA Contusion of right knee, initial encounter (principal); M25.512 Pain in left shoulder; M25.511 Pain in right shoulder; E11.22 Type 2 diabetes mellitus with diabetic chronic kidney disease; I12.9 Hypertensive chronic kidney disease with stage 1 through stage 4 chronic kidney disease, or unspecified chronic kidney disease; N18.4 Chronic kidney disease, stage 4 (severe); F41.9 Anxiety disorder, unspecified; I25.10 Atherosclerotic heart disease of native coronary artery without angina pectoris; F32.9 Major depressive disorder, single episode, unspecified; K21.9 Gastro-esophageal reflux disease without esophagitis; E78.00 Pure hypercholesterolemia, unspecified; I25.2 Old myocardial infarction; E11.40 Type 2 diabetes mellitus with diabetic neuropathy, unspecified; Z87.440 Personal history of urinary (tract) infections; Z88.0 Allergy status to penicillin; Z88.5 Allergy status to narcotic agent; W03.XXXA Other fall on same level due to collision with another person, initial encounter; Y93.89 Activity, other specified; Y92.89 Other specified places as the place of occurrence of the external cause; Y99.8 Other external cause status
CPT/HCPCS: 29240; 29505; 36415; 71045; 73010; 73030; 73060; 73562; 80053; 85025; 85610; 85730; 96374; 96375; 99285; J2270; J2405

== ENCOUNTER → 2020-11-13 | Outpatient (CLI) | payer MEDICARE ==
[~2020-11-13] MED LIST changes: -ALEN70TA6 PO; +ALEN70TA71 PO; +AMLO-186 PO; -AMLO5TAB10 PO; -GLIM1TAB3 PO; +GLIM1TAB7 PO; -LISI-334 PO; +LISI20TA18 PO; -POTA10TA12 PO; +POTASSIUM CHLO10 ME1 PO
--- NOTE | 2020-11-14 07:52 | KCIC ---
DEXA INDICATION: Screening for osteopenia/osteoporosis. Postmenopausal evaluation. COMPARISON: 04/17/2018 TECHNIQUE: Bone densitometry was performed through the lumbar spine and proximal femur. IMPRESSION: Lumbar Spine: BMD: 0.98 T-Score: -0.6 Range: Normal. Similar to prior. Proximal Femur: BMD: 0.7 T-Score: -1.8 Range: Osteopenic. Decreased by 7 percent from prior. World Health Organization Criteria for Bone Density: T-Score: > -1.0: Normal Range < -1.0 to -2.5: Osteopenic Range < -2.5: Osteoporotic Range Electronically signed by: Beni Peck MD (11/14/2020 7:49 AM) [id number]
== END ==
LOC: KCIC DEXA 12:20
PROVIDERS: ATTEND Internal Medicine
DX: Z78.0 Asymptomatic menopausal state (principal)
CPT/HCPCS: 77080

== ENCOUNTER → 2021-03-06 | Outpatient (CLI) | payer MEDICARE ==
[~2021-03-06] MED LIST changes: -LISI2.5T PO; +LISI2.5T12 PO
--- NOTE | 2021-03-06 15:09 | KCIC ---
EXAM: Bilateral lower extremity venous Doppler sonogram. HISTORY: Pain and swelling. TECHNIQUE: Link scale and color Doppler sonographic evaluation of the bilateral lower extremity veins with spectral waveform analysis was performed. FINDINGS: There is normal color flow, normal compressibility and there are normal spectral waveforms in the common femoral, superficial femoral, popliteal, posterior tibial and greater saphenous veins. The peroneal veins are not well seen due to soft tissue edema. IMPRESSION: No Doppler evidence of lower extremity deep venous thrombosis. Electronically signed by: Zulma Gamez MD (03/06/2021 3:07 PM) [id number]
== END ==
LOC: KCIC US 14:10
PROVIDERS: ATTEND Nurse Practitioner Family
DX: I87.8 Other specified disorders of veins (principal); R60.9 Edema, unspecified
CPT/HCPCS: 93970

== ENCOUNTER → 2021-03-28 | Outpatient (CLI) | payer MEDICARE ==
--- NOTE | 2021-03-28 13:41 | KCIC ---
EXAM: Left lower extremity venous Doppler sonogram. HISTORY: Pain and swelling. TECHNIQUE: Link scale and color Doppler sonographic evaluation of the left lower extremity veins with spectral waveform analysis was performed. FINDINGS: There is normal color flow, normal compressibility and there are normal spectral waveforms in the common femoral, superficial femoral, popliteal, posterior tibial and greater saphenous veins. The calf veins are partially obscured due to soft tissue edema. IMPRESSION: No Doppler evidence of lower extremity deep venous thrombosis, with limited evaluation of the calf veins due to soft tissue edema. Electronically signed by: Zulma Gamez MD (03/28/2021 1:38 PM) [id number]
--- NOTE | 2021-03-28 13:53 | KCIC ---
EXAM: Renal sonogram. HISTORY: Chronic renal disease. TECHNIQUE: Sonographic imaging the kidneys and bladder was performed. COMPARISON: None. FINDINGS: The right kidney measures 9.4 cm [id number] and the left kidney measures 7.3 cm pole-to-p ole. There is left renal cortical thinning and echogenic left renal parenchyma. No solid or cystic re nal lesion is seen. There is no hydronephrosis. The prevoid bladder volume is 100 cc. The ureteral je ts are both seen. IMPRESSION: 1. Left renal atrophy with cortical thinning. 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 2. Sonographically unremarkable right kidney and urinary bladder. Electronically signed by: Zulma Gamez MD (03/28/2021 1:51 PM) [id number]
== END ==
LOC: KCIC US 12:27
PROVIDERS: ATTEND Nurse Practitioner Family
DX: N26.1 Atrophy of kidney (terminal) (principal); N18.31 Chronic kidney disease, stage 3a; N04.9 Nephrotic syndrome with unspecified morphologic changes; M79.89 Other specified soft tissue disorders
CPT/HCPCS: 76770; 93971